=== PATIENT | female | born 1935 | race Caucasian/White ===

== ENCOUNTER 2021-12-17 07:52 | Outpatient (CLI) | payer OTHER, SELFPAY | END 2021-12-17 07:53 | disposition home or self-care (01) | LOC: AMB 12-21 21:55 | PROVIDERS: Visit Provider Family Medicine | DX: M54.9 Dorsalgia, unspecified (principal) | CPT/HCPCS: A0425; A0427 ==

== ENCOUNTER 2022-04-28 14:58 | Outpatient (CLI) | payer OTHER, SELFPAY | END 2022-04-28 14:59 | disposition home or self-care (01) | LOC: AMB 05-11 06:04 | PROVIDERS: Visit Provider Family Medicine | DX: R07.81 Pleurodynia (principal); R53.1 Weakness | CPT/HCPCS: A0425; A0427 ==

== ENCOUNTER 2022-04-28 16:24 | Observation (INO) | payer OTHER, SELFPAY ==
[2022-04-28] VITALS (21 sets, daily range): BP systolic 140–185; BP diastolic 74–118; PULSE 82–98; RESP 16–18; TEMP 36.6–36.9; O2SAT 94–97; BMI 22.6
--- NOTE | 2022-04-28 16:50 | ED.NURSE ---
Called [facility], they are on divert and boarding patients in their own ED, no bed availability per house officer (Cynthia).
--- NOTE | 2022-04-28 16:55 | ED_ITS ---
HPI - General Adult General Chief complaint: Rib Pain Stated complaint: rib pain Time Seen by Provider: 04/28/22 16:31 Source: patient Mode of arrival: EMS Limitations: no limitations History of Present Illness HPI narrative: 86-year-old female coming in today concerned about continuing pain after suffering multiple rib fractures patient was seen at [facility] on the of this month after she fell. She was found to have rib fractures of ribs 3 4 and 5. At that time admission was recommended the patient opted to go home. Since then patient states that she has been having a very difficult time getting by and doing daily activities. Oxycodone does help her pain. She is not complaining of increasing shortness of breath or dizziness. Her past medical history significant for chronic kidney disease, history of multiple fractures including the lumbar vertebrae, pelvis, femur. She has a history of unsteady gait, urinary incontinence, recurrent UTIs, depression, kidney stones, hypokalemia, hyperlipidemia, hypertension, bilateral hearing loss, goiter, GERD, osteoporosis, history of generalized weakness. She lives independently with her daughter. Related Data Allergies Allergy/AdvReac Type Severity Reaction Status Date / Time codeine Allergy Intermediate Vomiting Verified 04/28/22 17:30 Review of Systems Status of ROS: Reports: 10 or more systems reviewed and unremarkable except as noted in History and below PFSH PFS Social History Smoking Status: Never smoker Do you use any of these nicotine containing products: None Second hand tobacco smoke exposure: No How often do you have a drink containing alcohol: never How often do you have six or more drinks on one occasion: Never AUDIT-C Alcohol total score: 0 Non-prescribed substance use: denies use service: No Exam Narrative: Exam Narrative: Thin, elderly patient in obvious discomfort. Alert and oriented. Answers questions appropriately. Patient speaks in full sentences without needing to catch her breath. She is hard of hearing. Patient is disheveled, she is not very clean, smells strongly of urine. HEENT: Normocephalic atraumatic. Pupils are equally round reactive to light. Extraocular muscles are intact. Conjunctivae are moist without any icterus noted. Dry mucous membranes. Posterior pharynx is normal. Neck is soft without any lymphadenopathy or thyromegaly. No masses are appreciated. Cardiovascular: Regular rate and rhythm with frequent extra beats, S1-S2 present without murmurs. Lungs: Clear to auscultation bilaterally no wheezes rhonchi or rales are appreciated. Any deep Breathing causes her increased pain. Abdomen: Soft and nontender nondistended with normal bowel sounds. No guarding or rebound. Extremities: Bilateral lower extremities are without edema. Normal DP and PT pulses. Skin: Well perfused without any obvious rashes. Const: Vital Signs, click to edit/add: Vital Signs - 24 hr 04/28/22 16:32 Temperature 98.1 F Pulse Rate [Pulse Oximeter] 87 Respiratory Rate 18 Blood Pressure [Ri ght Upper Arm] 141/92 H Pulse Oximetry 95 Oxygen Delivery Me thod Room Air Course Course Hospital Course: Patient required 2 person assist with any transferring. Labs were unremarkable. EKG showed sinus rhythm with premature atrial complexes, left axis deviation. Did give her a dose of oral oxycodone which does seem to help. At this point we discussed disposition-given the fact that patient is requiring so much assistance with any movement and the fact that she was a bit disheveled when she arrived, I do believe that she will not thrive at home. Patient is agreeable to admitting. Vital Signs Vital signs: Initial Vital Signs Temperature 98.1 F 04/28/22 16:32 Temperature Source Temporal Artery Scan 04/28/22 16:32 Pulse Rate 87 04/28/22 16:32 Respiratory Rate 18 04/28/22 16:32 Blood Pressure 141/92 H 04/28/22 16:32 Blood Pressure Mean 108 04/28/22 16:32 Blood Pressure Position Sitting 04/28/22 16:32 Pulse Oximetry 95 04/28/22 16:32 Oxygen Delivery Method 04/28/22 16:32 Vital Signs Temperature 98.1 F 04/28/22 16:32 Pulse Rate 87 04/28/22 16:32 Respiratory Rate 18 04/28/22 16:32 Blood Pressure 141/92 H 04/28/22 16:32 Pulse Oximetry 95 04/28/22 16:32 Oxygen Delivery Method 04/28/22 16:32 Temperature 98.1 F 04/28/22 16:32 Pulse Rate 87 04/28/22 16:32 Respiratory Rate 18 04/28/22 16:32 Blood Pressure 141/92 H 04/28/22 16:32 Pulse Oximetry 95 04/28/22 16:32 Oxygen Delivery Method 04/28/22 16:32 Medical Decision Making MDM Narrative Medical decision making narrative: Elderly patient with multiple rib fractures. Patient will be admitted for management. Medical Records Medical records reviewed: Yes I reviewed the patient's medical records Lab Data Lab results reviewed: Yes I reviewed the patient's lab results Labs: Lab Results 04/28/22 04/28/22 04/28/22 Range/Units 16:45 17:00 17:00 WBC 6.46 (4.50-11.00) K/uL RBC 4.41 (4.00-5.20) m/uL Hgb 14.1 (12.0-16.0) gm/dL Hct 42.7 (33.0-51.0) % MCV 97 (80-100) fL MCH 32 (26-34) pg MCHC 33 (32-36) gm/dL RDW Coeff of Darrick 12.7 (11.5-15.5) % Plt Count 191 (140-440) K/uL Neut % (Auto) 74.5 H (42.0-72.0) % Lymph % (Auto) 13.2 L (20-44) % [place] % (Auto) 8.0 (0.0-11.0) % Eos % (Auto) 3.6 (0.0-7.0) % Baso % (Auto) 0.5 (0.0-3.0) % Neut # (Auto) 4.80 (1.7-7.0) K/uL Lymph # (Auto) 0.90 (0.90-2.90) K/uL [place] # (Auto) 0.50 (0.00-0.90) K/UL Eos # (Auto) 0.23 (0.00-0.50) K/uL Baso # (Auto) 0.03 (0.00-0.30) K/uL Abs Immat Gran (auto) 0.01 (0.00-0.30) K/uL Imm/Tot Granulo (auto) 0.2 % Sodium (135-149) mmol/L Potassium (3.6-5.1) mmol/L Chloride (96-114) mmol/L Carbon Dioxide (20-32) mmol/L BUN (7-30) mg/dL Creatinine (0.5-1.5) mg/dL Estimated GFR ml/min Glucose (60-115) mg/dL Calcium (8.4-10.6) mg/dL Urine Color Yellow (Yellow) Urine Appearance Clear (Clear) Urine pH 5.5 (5.0-8.5) Ur Specific [place] 1.010 (1.000-1.030) Urine Protein Negative (Negative) Urine Glucose (UA) Negative (Negative) Urine Ketones Negative (Negative) Urine Blood 1+ A (Negative) Urine Nitrite Negative (Negative) Urine Bilirubin Negative (Negative) Urine Urobilinogen 0.2 (0.2-1.0) Ur Leukocyte Esterase Negative (Negative) Urine RBC 2-5 A (0-2) Urine WBC 0-2 (0-5) Ur Squamous Epith Cells Few (None-Few) Urine Bacteria Few A (None) SARS-CoV-2 (PCR) Negative SARS-CoV-2 (Negative) 04/28/22 Range/Units 17:02 WBC (4.50-11.00) K/uL RBC (4.00-5.20) m/uL Hgb (12.0-16.0) gm/dL Hct (33.0-51.0) % MCV (80-100) fL MCH (26-34) pg MCHC (32-36) gm/dL RDW Coeff of [place]rick (11.5-15.5) % Plt Count (140-440) K/uL Neut % (Auto) (42.0-72.0) % Lymph % (Auto) (20-44) % [place] % (Auto) (0.0-11.0) % Eos % (Auto) (0.0-7.0) % Baso % (Auto) (0.0-3.0) % Neut # (Auto) (1.7-7.0) K/uL Lymph # (Auto) (0.90-2.90) K/uL [place] # (Auto) (0.00-0.90) K/UL Eos # (Auto) (0.00-0.50) K/uL Baso # (Auto) (0.00-0.30) K/uL Abs Immat Gran (auto) (0.00-0.30) K/uL Imm/Tot Granulo (auto) % Sodium 138 (135-149) mmol/L Potassium 4.1 (3.6-5.1) mmol/L Chloride 105 (96-114) mmol/L Carbon Dioxide 27 (20-32) mmol/L BUN 29 (7-30) mg/dL Creatinine 1.0 (0.5-1.5) mg/dL Estimated GFR 55 ml/min Glucose 124 H (60-115) mg/dL Calcium 9.3 (8.4-10.6) mg/dL Urine Color (Yellow) Urine Appearance (Clear) Urine pH (5.0-8.5) Ur Specific [place] (1.000-1.030) Urine Protein (Negative) Urine Glucose (UA) (Negative) Urine Ketones (Negative) Urine Blood (Negative) Urine Nitrite (Negative) Urine Bilirubin (Negative) Urine Urobilinogen (0.2-1.0) Ur Leukocyte Esterase (Negative) Urine RBC (0-2) Urine WBC (0-5) Ur Squamous Epith Cells (None-Few) Urine Bacteria (None) SARS-CoV-2 (PCR) (Negative) ECG Data Attestation: I personally reviewed and interpreted this ECG as follows: (Sinus rhythm with premature atrial complexes, left axis deviation, pulse 91) Discharge Plan Discharge Clinical Impression: Multiple fractures of ribs, Pain Patient Disposition: Admitted As Inpatient Condition: Stable Follow Up/Referrals: Provider,Not a Local [Primary Care Provider] -
[2022-04-28 17:09] LABS: Basophils Absolute Auto 0.03 K/uL (0.00-0.30); Basophils Percent Auto 0.5 % (0.0-3.0); Eosinophils Absolute Auto 0.23 K/uL (0.00-0.50); Eosinophils Percent Auto 3.6 % (0.0-7.0); Hematocrit 42.7 % (33.0-51.0); Hemoglobin* 14.1 gm/dL (12.0-16.0); Immature Granulocytes Abs Auto 0.01 K/uL (0.00-0.30); Immature Granulocytes Pct Auto 0.2 %; Lymphocytes Percent Auto 13.2 % (20-44); Mean Corpuscular HGB Conc 33 gm/dL (32-36); Mean Corpuscular Hemoglobin 32 pg (26-34); Mean Corpuscular Volume 97 fL (80-100); Neutrophils Percent Auto 74.5 % (42.0-72.0); Platelet Count* 191 K/uL (140-440); RDW Coefficient of Variation % 12.7 % (11.5-15.5); Red Blood Count 4.41 m/uL (4.00-5.20); White Blood Count* 6.46 K/uL (4.50-11.00)
[2022-04-28 17:16] LABS: Slide Review Reflex No
[2022-04-28] MEDS: 0.9 % SODIUM CHLORIDE 1000 ml 1,000 ML 500 ML IV (17:19)
[2022-04-28] MEDS: OXYCODONE 5 MG TABLET PO ×2 (17:19→23:58)
[2022-04-28 17:22] LABS: Chloride* 105 mmol/L (96-114); Potassium* 4.1 mmol/L (3.6-5.1); Sodium* 138 mmol/L (135-149)
[2022-04-28 17:22] LABS: Appearance Urine Clear (Clear); Bilirubin Urine Negative (Negative); Blood Urine 1+ (Negative); Color Urine Yellow (Yellow); Glucose Urine Negative (Negative); Ketones Urine Negative (Negative); Leukocyte Esterase Urine Negative (Negative); Nitrite Urine Negative (Negative); Protein Urine Negative (Negative); Urobilinogen Urine 0.2 (0.2-1.0); pH Urine 5.5 (5.0-8.5)
[2022-04-28 17:25] LABS: Blood Urea Nitrogen* 29 mg/dL (7-30); Carbon Dioxide* 27 mmol/L (20-32); Estimated Glomerular Filt Rate 55 ml/min
[2022-04-28 17:26] LABS: Calcium* 9.3 mg/dL (8.4-10.6); Glucose* 124 mg/dL (60-115)
[2022-04-28 17:53] LABS: SARS PCR* Negative SARS-CoV-2 (Negative)
[2022-04-28 17:56] LABS: Bacteria Urine Few; Squamous Epithelial Cell Urine Few (None-Few); WBC Urine 0-2 (0-5)
--- NOTE | 2022-04-28 19:40 | ED.NURSE ---
Patient noted to have removed 18G IV from left AC (EMS start). She has also removed bp cuff and oximeter. I don't know why. Coban wrap to left AC, fluids had finished infusing. Okay per MD to hold on IV start right now.
--- NOTE | 2022-04-28 20:18 | ED.NURSE ---
Report to Bautista Martell RN. Patient accepted to [id number]. Patient's son has just arrived, is in room with patient. Patient to [facility] via cot by EDT.
--- NOTE | 2022-04-28 21:50 | P.IMHP_ITS ---
Hospitalist- H&P: HPI History of Present Illness Time Seen by Provider: 21:50 Date Seen: 04/28/22 Chief complaint: rib pain Narrative: Sandra Campbell is a 86 year old female with dementia who had multiple falls. Uses walker. Cat runs between her legs and knocks the walker out of balance. Fell 2 weeks ago and again 3 days ago. Had pain in chest. Went to [facility] on Wednesday after fall and was sent home. Went back in because of pain and was given oxycodone. Lives with her oldest daughter. When they got home from the ER, she was very tired and wouldn't get out of bed, eat or drink. She was in a lot of pain. She was more confused than usual. Review of Systems Status of ROS: Reports: unobtainable due to mental status (dementia, confusion) PFSH [facility] Medical History (Updated 04/28/22 @ 22:56 by Jasmine Helton MD) Closed displaced subtrochanteric fracture of left femur Closed fracture of ramus of right pubis Closed intertrochanteric fracture of left femur Compression fracture of lumbar vertebra Dementia Dizziness Eating disorder Fall with injury Fractured coccyx Gastroesophageal reflux Generalized weakness Hx of colonic polyps Hyperlipidemia Hypertension Hypokalemia Lumbar disc disorder Nontoxic uninodular goiter Osteoarthritis of hand Osteoporosis Protein calorie malnutrition Sensorineural hearing loss (SNHL) of both ears Squamous cell carcinoma of skin of lower extremity Stage 3 chronic kidney disease Tobacco dependence syndrome Unsteady gait Urinary incontinence UTI (urinary tract infection) Weight loss, unintentional Surgical History (Updated 04/28/22 @ 22:37 by Jasmine Helton MD) H/O cystoscopy H/O squamous cell carcinoma excision History of hysterectomy Hx of cataract extraction Hx of colonoscopy Hx of esophagogastroduodenoscopy S/P appendectomy S/P cholecystectomy S/P ORIF (open reduction internal fixation) fracture S/P ORIF (open reduction internal fixation) fracture S/P thyroid biopsy Social History (Updated 04/28/22 @ 22:39 by Jasmine Helton MD) Narrative: Smokes 1/2ppd, denies alcohol or recreational drug use. Highest level of school completed/degree received: 10th grade Smoking Status: Current every day smoker What tobacco products do you use: cigarettes Smoking packs per day: 1 Smoking cigarettes per day: 20.0 Do you use any of these nicotine containing products: None Second hand tobacco smoke exposure: No How often do you have a drink containing alcohol: never How often do you have six or more drinks on one occasion: Never AUDIT-C Alcohol total score: 0 Non-prescribed substance use: denies use Caffeine: No service: No Meds Home Medications and Allergies Home Medications Medication Instructions Recorded Confirmed Type acetaminophen 500 mg tablet 1,000 mg PO Q6H PRN 04/28/22 04/28/22 History (Tylenol Extra Strength) amlodipine 10 mg tablet 10 mg PO DAILY 04/28/22 04/28/22 History atorvastatin 10 mg tablet 10 mg PO HS 04/28/22 04/28/22 History candesartan 16 mg tablet 16 mg PO DAILY 04/28/22 04/28/22 History cholecalciferol (vitamin D3) 25 25 mcg PO DAILY 04/28/22 04/28/22 History mcg (1,000 unit) capsule (Vitamin D3) docusate sodium 100 mg capsule 100 mg PO BID 04/28/22 04/28/22 History duloxetine 30 mg capsule,delayed 90 mg PO DAILY 04/28/22 04/28/22 History release lorazepam 0.5 mg tablet 0.5 mg PO QHS PRN 04/28/22 04/28/22 History melatonin 5 mg capsule 5 mg PO HS 04/28/22 04/28/22 History memantine 10 mg tablet 10 mg PO BID 04/28/22 04/28/22 History mirtazapine 30 mg tablet 30 mg PO HS 04/28/22 04/28/22 History omeprazole 20 mg capsule,delayed 20 mg PO DAILY 04/28/22 04/28/22 History release oxycodone 5 mg tablet 5 mg PO Q4H PRN 04/28/22 04/28/22 History tamsulosin 0.4 mg capsule 0.4 mg PO Q24H 04/28/22 04/28/22 History trospium 20 mg tablet 20 mg PO BID 04/28/22 04/28/22 History Allergies Allergy/AdvReac Type Severity Reaction Status Date / Time codeine Allergy Intermediate Vomiting Verified 04/28/22 17:30 Exam Narrative: Exam Narrative: General: No acute distress. Awake, alert, oriented to self and partially to situation. Comfortable laying on her back in bed. She refused to move for my exam. In fact, she would not let me examine her at all unless I promised I would not make her move. HEENT: Normocephalic atraumatic, pupils equally round and reactive to light and accommodation. Oropharynx clear. Mucous membranes are moist. No cervical lymphadenopathy, thyromegaly or carotid bruits. No JVD. Cardiovascular: Regular rate and rhythm. No murmurs, gallops, or rubs. Chest: No increased work of breathing. No retractions. Clear to auscultation anteriorly. No wheezes. Abdomen: Bowel sounds present. Soft, nondistended, nontender. No hepatosplenomegaly or masses. Extremities: Trace bilateral pretibial edema, no cyanosis or clubbing. Const: Vital Signs, click to edit/add: Vital Signs - 24 hr 04/28/22 16:32 04/28/22 17:06 04/28/22 17:30 Temperature 98.1 F Pulse Rate 91 82 Pulse Rate [Left R adial] Pulse Rate [Pulse Oximeter] 87 Respiratory Rate 18 Blood Pressure Blood Pressure [Le ft Arm] Blood Pressure [Ri ght Upper Arm] 141/92 H Pulse Oximetry 95 96 97 Oxygen Delivery Me od Room Air 04/28/22 17:32 04/28/22 18:00 04/28/22 18:01 Temperature Pulse Rate 82 92 91 Pulse Rate [Left R adial] Pulse Rate [Pulse Oximeter] Respiratory Rate Blood Pressure 140/76 H 154/76 H Blood Pressure [Le ft Arm] Blood Pressure [Ri ght Upper Arm] Pulse Oximetry 96 96 96 Oxygen Delivery Me thod 04/28/22 18:02 04/28/22 18:30 04/28/22 18:31 Temperature Pulse Rate 87 93 94 Pulse Rate [Left R adial] Pulse Rate [Pulse Oximeter] Respiratory Rate Blood Pressure 155/74 H Blood Pressure [Le ft Arm] Blood Pressure [Ri ght Upper Arm] Pulse Oximetry 96 94 95 Oxygen Delivery Me thod 04/28/22 19:00 04/28/22 19:01 04/28/22 19:31 Temperature Pulse Rate 91 95 Pulse Rate [Left R adial] Pulse Rate [Pulse Oximeter] Respiratory Rate Blood Pressure 164/75 H 163/118 H Blood Pressure [Le ft Arm] Blood Pressure [Ri ght Upper Arm] Pulse Oximetry 95 96 Oxygen Delivery Me thod 04/28/22 20:01 04/28/22 20:49 04/28/22 20:51 Temperature 98.1 F 98.4 F Pulse Rate Pulse Rate [Left R adial] 98 98 Pulse Rate [Pulse Oximeter] Respiratory Rate 16 16 Blood Pressure 164/80 H Blood Pressure [Le ft Arm] 185/92 H 185/92 H Blood Pressure [Ri ght Upper Arm] Pulse Oximetry 95 95 Oxygen Delivery Me thod Room Air Room Air 04/28/22 21:00 Temperature Pulse Rate Pulse Rate [Left R adial] Pulse Rate [Pulse Oximeter] Respiratory Rate 16 Blood Pressure Blood Pressure [Le ft Arm] Blood Pressure [Ri ght Upper Arm] Pulse Oximetry 95 Oxygen Delivery Me thod Room Air Hospitalist - H&P: Result Labs Labs: Short CBC 04/28/22 Range/Units 17:00 WBC 6.46 (4.50-11.00) K/uL Hgb 14.1 (12.0-16.0) gm/dL Hct 42.7 (33.0-51.0) % Plt Count 191 (140-440) K/uL BMP 04/28/22 17:02 Sodium 138 Potassium 4.1 Chloride 105 Carbon Dioxide 27 BUN 29 Creatinine 1.0 Glucose 124 H Calcium 9.3 Urine 04/28/22 Range/Units 16:45 Urine Color Yellow (Yellow) Urine Appearance Clear (Clear) Urine pH 5.5 (5.0-8.5) Ur Specific [place] 1.010 (1.000-1.030) Urine Protein Negative (Negative) Urine Glucose (UA) Negative (Negative) EKG: Sinus rhythm with premature atrial complexes. Heart rate 91 beats per minute. Left axis deviation. Minimal voltage criteria for LVH, maybe normal variant. Septal infarct, age undetermined. Abnormal EKG. Assessment and Plan Assessment and plan (1) Fall with injury: Problem comment: 01/24/2019 fall at home with chest wall injury. 02/05/2019 CT chest: 1. No acute traumatic injury to the chest, abdomen or pelvis. 2. Old thoracic compression fractures with thoracic kyphosis, similar to the prior exam. 3. Colonic diverticulosis without janee diverticulitis. 4. Other incidental findings as detailed above. 04/26/22 multiple right rib fractures Status: Acute (2) Multiple fractures of ribs: Status: Acute Assessment and Plan: No respiratory distress. Comfortable. Monitor. (3) Protein calorie malnutrition: Status: Chronic (4) Pain: Status: Acute (5) Stage 3 chronic kidney disease: Problem comment: Baseline Creatinine 1.0. CREATININE (mg/dL) Date Value 02/05/2019 1.38 (H) Status: Chronic (6) Dementia: Problem comment: according to patient's daughter Status: Chronic Plan Admit for observation with oral pain control and PT/OT consults. Also consult SW as she may need placement.
[2022-04-28] MEDS: TAMSULOSIN HCL 0.4 MG CAPSULE PO (23:58)
[2022-04-29] VITALS (9 sets, daily range): BP systolic 124–156; BP diastolic 66–77; PULSE 95–99; RESP 16–20; TEMP 36.3–36.9; O2SAT 92–94
[2022-04-29] MEDS: OXYCODONE 5 MG TABLET PO ×5 (02:48→20:23)
--- NOTE | 2022-04-29 03:06 | PC.NURSE ---
Pt restless this night. States unable to sleep in strange environment. Pain controlled with meds. Pain elevated with movement. PT heavy A2 to pivot to commode. Pt confused as to place and surroundings. Would like family to stay with her. Afebrile. VS unremarkable.
--- NOTE | 2022-04-29 09:51 | PC.SOCIAL ---
Addendum entered by HEMANTH Bradshaw 04/29/22 16:21: Producer Director has reviewed and agrees with this note. Original Note: Discharge planning: Social work spoke with [email or web address] Ro ([phone]) to discuss plans for discharge. Dtr. says that she would like pt. to go to a nursing facility at discharge. Dtr. says that she would like to stay as close to [place] as possible, listing [facility], [facility] [place], [facility], [facility], and [facility] as options. [facility] currently has no beds, [facility] and [facility] have no beds until next week. Left messages at [facility] and [facility] [place], sent referral to [facility]. Social work to follow up as needed.
[2022-04-29] MEDS: AMLODIPINE 10 MG TABLET PO (10:08)
[2022-04-29] MEDS: DULOXETINE 30 MG CAPSULE DR 90 MG PO (10:09)
[2022-04-29] MEDS: DOCUSATE SODIUM 100 MG CAPSULE PO ×2 (10:09→20:22)
[2022-04-29] MEDS: OMEPRAZOLE 20 MG CAPSULE DR PO (10:10)
[2022-04-29] MEDS: MEMANTINE HCL 10 MG TABLET PO ×2 (10:10→20:23)
[2022-04-29] MEDS: NICOTINE 21 MG PATCH 1 PATCH TRANSDERMA (12:12)
[2022-04-29] MEDS: SENNOSIDES 1 TAB TABLET 2 TAB PO ×2 (12:12→20:22)
--- NOTE | 2022-04-29 12:12 | P.IMPN_ITS ---
Progress Note: A&P Assessment and plan (1) Multiple fractures of ribs: Problem details: Currently without obvious complication. Patient is at high risk for respiratory problems with underlying COPD. Patient is requiring opioid therapy which is complicating and exacerbating her cognitive issues with dementia. Status: Acute (2) COPD (chronic obstructive pulmonary disease): Problem details: Appears moderately severe but not currently requiring oxygen. Status: Acute (3) Stage 3 chronic kidney disease: Problem details: Baseline Creatinine 1.0. CREATININE (mg/dL) Date Value 02/05/2019 1.38 (H) Status: Chronic (4) Fall with injury: Problem details: From the emergency department in [place] she had thoracic spine CT, abdomen and pelvis CT, lumbar spine CT and chest abdomen pelvis CT. Main findings are rib fractures 3-5 in the anterolateral right chest, bilateral ureteral stents, COPD, coronary calcifications, old lumbar compression fractures. And multiple other incidental findings Status: Acute (5) Pain: Problem details: Difficult to manage due to dementia. Status: Acute (6) Dementia: Problem details: Progressive decline over the last year according to her daughter Status: Chronic (7) Protein calorie malnutrition: Problem details: Poor appetite has gotten worse. Status: Chronic (8) Disability: Problem details: Patient is quite disabled due to pre-existing dementia and poor balance and weakness now exacerbated by pain from her rib fractures. Likely needs senior care facility for care. Notably daughter previously worked in a senior care facility and has been caregiver for both her parents over the last 6 years. She feels now that her mom needs assist of 2. Status: Acute Plan Continue to work on monitoring respiratory status. Added high risk for respiratory complications. Continue to manage pain with low-dose opioids as needed Time Spent With Patient Total time spent: Total time spent today is 45 minutes, 30 minutes in coordination care and discussing with daughter and other providers ongoing evaluation management of pain, rib fractures, COPD and dementia Subjective Date Seen: 04/29/22 Interval history: 86-year-old female with dementia admitted to the hospital after a fall at home 5 days ago. She was evaluated in the emergency department in [place] after the fall and again the next day. She was diagnosed with right-sided rib fractures, 3,4 and 5. Patient reports having more pain in her left anterolateral chest than her right anterior all lateral chest were the fractures were identified on CT. Brief history: Daughter lives with the patient and gives most of the history today. She reports that her mom has dementia. She has had more recent decline in her status. Daughter trip beats this to the of her earlier this year as well as surgery to place by right lateral ureteral stents for recurrent obstructing nephrolithiasis. There has not been any recent illness. The only significant injury is this fall from 5 days ago. Daughter also notes that her mom has become less stable on her feet and overall weaker. Exam Narrative: Exam Narrative: Patient is alert and pleasant. She is unable to give significant history about recent events. She does describe her current symptoms fairly well noting left chest pain greater than right. No obvious facial asymmetry. She moves both upper extremities well limited by bilateral anterior chest pain with shoulder movement. Respirations are markedly decreased in all lung jacobo. She has a few basilar crackles. No marked wheezing. Cardiovascular: S1, S2, regular rate and rhythm. No murmur gallop or rub. Palpation over chest wall shows bilateral moderate tenderness in the anterolateral left and right chest. No obvious bruising or deformity. Abdomen: Bowel sounds active. Abdomen is soft without tenderness or mass. She has no significant edema. Const: Vital Signs, click to edit/add: Vital Signs - 24 hr 04/28/22 16:32 04/28/22 17:06 04/28/22 17:30 Temperature 98.1 F Pulse Rate 91 82 Pulse Rate [Left R adial] Pulse Rate [Pulse Oximeter] 87 Respiratory Rate 18 Blood Pressure Blood Pressure [Le ft Arm] Blood Pressure [Ri ght Upper Arm] 141/92 H Pulse Oximetry 95 96 97 Oxygen Delivery Me thod Room Air 04/28/22 17:32 04/28/22 18:00 04/28/22 18:01 Temperature Pulse Rate 82 92 91 Pulse Rate [Left R adial] Pulse Rate [Pulse Oximeter] Respiratory Rate Blood Pressure 140/76 H 154/76 H Blood Pressure [Le ft Arm] Blood Pressure [Ri ght Upper Arm] Pulse Oximetry 96 96 96 Oxygen Delivery Me thod 04/28/22 18:02 04/28/22 18:30 04/28/22 18:31 Temperature Pulse Rate 87 93 94 Pulse Rate [Left R adial] Pulse Rate [Pulse Oximeter] Respiratory Rate Blood Pressure 155/74 H Blood Pressure [Le ft Arm] Blood Pressure [Ri ght Upper Arm] Pulse Oximetry 96 94 95 Oxygen Delivery Me thod 04/28/22 19:00 04/28/22 19:01 04/28/22 19:31 Temperature Pulse Rate 91 95 Pulse Rate [Left R adial] Pulse Rate [Pulse Oximeter] Respiratory Rate Blood Pressure 164/75 H 163/118 H Blood Pressure [Le ft Arm] Blood Pressure [Ri ght Upper Arm] Pulse Oximetry 95 96 Oxygen Delivery Me thod 04/28/22 20:01 04/28/22 20:49 04/28/22 20:51 Temperature 98.1 F 98.4 F Pulse Rate Pulse Rate [Left R adial] 98 98 Pulse Rate [Pulse Oximeter] Respiratory Rate 16 16 Blood Pressure 164/80 H Blood Pressure [Le ft Arm] 185/92 H 185/92 H Blood Pressure [Ri ght Upper Arm] Pulse Oximetry 95 95 Oxygen Delivery Me thod Room Air Room Air 04/28/22 21:00 04/28/22 22:28 04/28/22 22:42 Temperature 98 F 98 F Pulse Rate Pulse Rate [Left R adial] 95 95 Pulse Rate [Pulse Oximeter] Respiratory Rate 16 16 16 Blood Pressure Blood Pressure [Le ft Arm] 173/77 H 173/77 H Blood Pressure [Ri ght Upper Arm] Pulse Oximetry 95 94 94 Oxygen Delivery Me thod Room Air Room Air Room Air 04/28/22 23:20 04/28/22 23:23 04/28/22 23:25 Temperature 98 F Pulse Rate Pulse Rate [Left R adial] 95 Pulse Rate [Pulse Oximeter] Respiratory Rate 16 Blood Pressure Blood Pressure [Le ft Arm] 173/77 H Blood Pressure [Ri ght Upper Arm] Pulse Oximetry 94 94 95 Oxygen Delivery Me thod Room Air Room Air 04/29/22 02:52 Temperature 98.4 F Pulse Rate Pulse Rate [Left R adial] 95 Pulse Rate [Pulse Oximeter] Respiratory Rate 18 Blood Pressure Blood Pressure [Le ft Arm] 137/75 Blood Pressure [Ri ght Upper Arm] Pulse Oximetry 94 Oxygen Delivery Me thod Room Air Labs Labs: Laboratory Results - last 24 hr 04/28/22 04/28/22 04/28/22 16:45 17:00 17:00 WBC 6.46 RBC 4.41 Hgb 14.1 Hct 42.7 MCV 97 MCH 32 MCHC 33 RDW Coeff of Darrick 12.7 Plt Count 191 Neut % (Auto) 74.5 H Lymph % (Auto) 13.2 L [place] % (Auto) 8.0 Eos % (Auto) 3.6 Baso % (Auto) 0.5 Neut # (Auto) 4.80 Lymph # (Auto) 0.90 [place] # (Auto) 0.50 Eos # (Auto) 0.23 Baso # (Auto) 0.03 Abs Immat Gran (auto) 0.01 Imm/Tot Granulo (auto) 0.2 Sodium Potassium Chloride Carbon Dioxide BUN Creatinine Estimated GFR Glucose Calcium Urine Color Yellow Urine Appearance Clear Urine pH 5.5 Ur Specific [place] 1.010 Urine Protein Negative Urine Glucose (UA) Negative Urine Ketones Negative Urine Blood 1+ A Urine Nitrite Negative Urine Bilirubin Negative Urine Urobilinogen 0.2 Ur Leukocyte Esterase Negative Urine RBC 2-5 A Urine WBC 0-2 Ur Squamous Epith Cells Few Urine Bacteria Few A SARS-CoV-2 (PCR) Negative SARS-CoV-2 04/28/22 17:02 WBC RBC Hgb Hct MCV MCH MCHC RDW Coeff of Darrick Plt Count Neut % (Auto) Lymph % (Auto) [place] % (Auto) Eos % (Auto) Baso % (Auto) Neut # (Auto) Lymph # (Auto) [place] # (Auto) Eos # (Auto) Baso # (Auto) Abs Immat Gran (auto) Imm/Tot Granulo (auto) Sodium 138 Potassium 4.1 Chloride 105 Carbon Dioxide 27 BUN 29 Creatinine 1.0 Estimated GFR 55 Glucose 124 H Calcium 9.3 Urine Color Urine Appearance Urine pH Ur Specific [place] Urine Protein Urine Glucose (UA) Urine Ketones Urine Blood Urine Nitrite Urine Bilirubin Urine Urobilinogen Ur Leukocyte Esterase Urine RBC Urine WBC Ur Squamous Epith Cells Urine Bacteria SARS-CoV-2 (PCR)
[2022-04-29] MEDS: LOSARTAN POTASSIUM 50 MG TABLET PO (13:16)
--- NOTE | 2022-04-29 19:32 | PC.NURSE ---
Pt resting in chair. Refused to eat dinner. Refused to move to bed. Refused Vitals. Pt tried to strike RN and yelled Leave me Alone
--- NOTE | 2022-04-29 19:37 | PC.NURSE ---
Nursing Care Hours: [id number] Pt this shift calm. Not oriented to place, birthday, or date. Explained she fell over a week ago when it was reported to be three days. Shared that three weeks ago but display card writer unsure if that is valid. Declined all meals, agreeable to applesauce in morning with medications. Denies pain at rest but with movement it is about 7/10. Pt was pressing nurse call button frequently in later afternoon but denied needing anything when display card writer entered room. Outsole Scheduler explained what the button is for, but pt continued with pressing call light. Pt appeared agitated in chair from pain, aeb rubbing L side, cursed x1, and facial grimacing. Oxycodone given and pt fell asleep in recliner chair. Attempt to wake pt to use the commode or do get into bed. Pt lethargic and refused to move. pt stating i am fine, i am comfortable. Pt did have void or BM today, drank about 500ml total.
[2022-04-29] MEDS: ATORVASTATIN 10 MG TABLET PO (20:24)
[2022-04-29] MEDS: MIRTAZAPINE 15 MG TABLET 30 MG PO (20:24)
[2022-04-29] MEDS: TAMSULOSIN HCL 0.4 MG CAPSULE PO (20:24)
[2022-04-29] MEDS: MELATONIN 3 MG TABLET 6 MG PO (20:24)
--- NOTE | 2022-04-29 23:57 | PC.NURSE ---
@ 2300 Pt began tugging at gum tissue of her upper mouth. Pt would not place teeth back in mouth. Pt is causing herself to bleed from her mouth. was notified and came into room. Pt refused help and would not let staff assist. notified ED Dr of situation and stated that if bleeding becomes severe we are to notify ED
[2022-04-30 02:36] VITALS: BP 112/59; PULSE 97; RESP 18; TEMP 37.2; O2SAT 92
--- NOTE | 2022-04-30 06:43 | PC.NURSE ---
Pt very uncooperative with cares. Dr asked if family could come in. Daughter called and said she is the same way at home and that they did not have anyone to come in.
[2022-04-30 07:00] VITALS: PULSE 97; RESP 18; O2SAT 92
[2022-04-30] MEDS: SENNOSIDES 1 TAB TABLET 2 TAB PO ×2 (09:14→21:16)
[2022-04-30] MEDS: OMEPRAZOLE 20 MG CAPSULE DR PO (09:14)
[2022-04-30] MEDS: LOSARTAN POTASSIUM 50 MG TABLET PO (09:14)
[2022-04-30] MEDS: AMLODIPINE 10 MG TABLET PO (09:14)
[2022-04-30] MEDS: DOCUSATE SODIUM 100 MG CAPSULE PO ×2 (09:14→21:16)
[2022-04-30] MEDS: MEMANTINE HCL 10 MG TABLET PO ×2 (09:14→21:16)
[2022-04-30] MEDS: DULOXETINE 30 MG CAPSULE DR 90 MG PO (09:14)
[2022-04-30] MEDS: OXYCODONE 5 MG TABLET PO ×2 (09:59→14:38)
[2022-04-30] MEDS: NICOTINE 21 MG PATCH 1 PATCH TRANSDERMA (10:00)
[2022-04-30] MEDS: OLANZapine 5 MG TAB.RAPDIS PO ×2 (10:13→21:16)
[2022-04-30 11:00] VITALS: BP 136/73; PULSE 93; RESP 18; TEMP 37.2; O2SAT 93
--- NOTE | 2022-04-30 11:35 | PM.IMPN1 ---
Progress Note: A&P Assessment and plan (1) Fall with injury: Problem details: From the emergency department in [place] she had thoracic spine CT, abdomen and pelvis CT, lumbar spine CT and chest abdomen pelvis CT. Main findings are rib fractures 3-5 in the anterolateral right chest, bilateral ureteral stents, COPD, coronary calcifications, old lumbar compression fractures. And multiple other incidental findings Status: Acute (2) COPD (chronic obstructive pulmonary disease): Problem details: Appears moderately severe but not currently requiring oxygen. Status: Acute (3) Disability: Problem details: Patient is quite disabled due to pre-existing dementia and poor balance and weakness now exacerbated by pain from her rib fractures. Likely needs residential facility for care. Notably daughter previously worked in a residential facility and has been caregiver for both her parents over the last 6 years. She feels now that her mom needs assist of 2. Status: Acute (4) Dementia: Problem details: Progressive decline over the last year according to her daughter Status: Chronic (5) Stage 3 chronic kidney disease: Problem details: Baseline Creatinine 1.0. CREATININE (mg/dL) Date Value 02/05/2019 1.38 (H) Status: Chronic (6) Multiple fractures of ribs: Problem details: Currently without obvious complication. Patient is at high risk for respiratory problems with underlying COPD. Patient is requiring opioid therapy which is complicating and exacerbating her cognitive issues with dementia. Status: Acute (7) Pain: Problem details: Difficult to manage due to dementia. Status: Acute (8) Delirium: Status: Acute Plan Plan for 04/30/22 zyprexa X1 zyprexa qhs prn zyprexa for agitation check CBC, BMp, Ua Subjective Date Seen: 04/30/22 Interval history: patient with dementia delirious this morning thinks she is at hotel was agitated and threatening therapy team Exam Narrative: Exam Narrative: Gen: no acute distress HEENT: NCAT EOMI mmm CV: RRR s1 s2 LCTAB Abd: soft,ntnd Neuro: AOX1, follows some commands Const: Vital Signs, click to edit/add: Vital Signs - 24 hr 04/29/22 15:00 04/29/22 15:00 04/29/22 15:00 Temperature 97.3 F L Pulse Rate [Left R adial] 99 99 Respiratory Rate 20 20 Blood Pressure [Le ft Arm] 124/74 Pulse Oximetry 94 94 Oxygen Delivery Me thod Room Air Room Air 04/29/22 19:27 04/29/22 22:35 04/29/22 22:37 Temperature 98 F Pulse Rate [Left R adial] 97 Respiratory Rate 16 18 Blood Pressure [Le ft Arm] 143/66 H Pulse Oximetry 92 92 Oxygen Delivery Me thod Room Air 04/29/22 22:38 04/29/22 22:39 04/30/22 02:36 Temperature 98.9 F Pulse Rate [Left R adial] 97 97 Respiratory Rate 18 18 18 Blood Pressure [Le ft Arm] 112/59 L Pulse Oximetry 92 92 Oxygen Delivery Me thod Room Air Room Air 04/30/22 07:00 04/30/22 07:00 04/30/22 11:00 Temperature 98.9 F Pulse Rate [Left R adial] 97 93 Respiratory Rate 18 18 18 Blood Pressure [Le ft Arm] 136/73 Pulse Oximetry 92 93 Oxygen Delivery Me thod Room Air Room Air
[2022-04-30 12:18] LABS: Chloride* 105 mmol/L (96-114); Sodium* 136 mmol/L (135-149)
[2022-04-30 12:19] LABS: Potassium* 4.2 mmol/L (3.6-5.1)
[2022-04-30 12:21] LABS: Carbon Dioxide* 23 mmol/L (20-32); Creatinine* 1.2 mg/dL (0.5-1.5); Est. Creatinine Clearance* 33.33; Estimated Glomerular Filt Rate 44 ml/min
[2022-04-30 12:22] LABS: Blood Urea Nitrogen* 26 mg/dL (7-30); Calcium* 9.6 mg/dL (8.4-10.6); Glucose* 101 mg/dL (60-115)
[2022-04-30 12:31] LABS: Appearance Urine Clear (Clear); Bilirubin Urine Negative (Negative); Blood Urine 2+ (Negative); Color Urine Yellow (Yellow); Glucose Urine Negative (Negative); Ketones Urine 1+ (Negative); Leukocyte Esterase Urine 1+ (Negative); Nitrite Urine Negative (Negative); Protein Urine Negative (Negative); Urobilinogen Urine 0.2 (0.2-1.0); pH Urine 5.5 (5.0-8.5)
[2022-04-30 12:39] LABS: Procalcitonin* 0.08 ng/mL (<0.50)
[2022-04-30 12:53] LABS: Bacteria Urine Many; RBC Urine 25-50 (0-2); Squamous Epithelial Cell Urine Few (None-Few)
--- NOTE | 2022-04-30 14:09 | PC.SOCIAL ---
Addendum entered by HEMANTH Bradshaw 04/30/22 15:31: Gluing Machine Operator has reviewed and agrees with this note. Original Note: Discharge planning: Pt.'s family provided list of preferred [employer]-accepting facilities. Pt.'s family strongly prefers to stay in [place] at the [facility], but also lists [facility], [facility], and [facility] as secondary options. Pt. has been accepted to [facility], awaiting [employer] insurance approval. Voicemails left at all other facilities, awaiting responses. Social work to follow up as needed.
[2022-04-30 15:00] VITALS: BP 117/63; PULSE 84; RESP 18; TEMP 37.2; O2SAT 94
[2022-04-30] MEDS: cefTRIAXone 1 GM in 0.9 % SODIUM CHLORIDE Mini-bag 100 ML IVPB (16:05)
[2022-04-30 19:00] VITALS: BP 135/66; PULSE 92; RESP 20; TEMP 37.2; O2SAT 92
[2022-04-30 19:51] LABS: Basophils Absolute Auto 0.03 K/uL (0.00-0.30); Basophils Percent Auto 0.4 % (0.0-3.0); Eosinophils Absolute Auto 0.29 K/uL (0.00-0.50); Eosinophils Percent Auto 3.8 % (0.0-7.0); Hematocrit 42.3 % (33.0-51.0); Hemoglobin* 13.8 gm/dL (12.0-16.0); Immature Granulocytes Abs Auto 0.02 K/uL (0.00-0.30); Immature Granulocytes Pct Auto 0.3 %; Lymphocytes Percent Auto 9.9 % (20-44); Mean Corpuscular HGB Conc 33 gm/dL (32-36); Mean Corpuscular Hemoglobin 32 pg (26-34); Mean Corpuscular Volume 98 fL (80-100); Monocytes Percent Auto 8.7 % (0.0-11.0); Neutrophils Percent Auto 76.9 % (42.0-72.0); Platelet Count* 203 K/uL (140-440); RDW Coefficient of Variation % 12.6 % (11.5-15.5); Red Blood Count 4.33 m/uL (4.00-5.20)
[2022-04-30 19:58] LABS: Slide Review Reflex No
--- NOTE | 2022-04-30 20:01 | PC.NURSE ---
Pt. was not in a good mood this AM but quickly turned around and was cooperative w/cares and vitals. Pt. stated that she was in pain. unable to rate. oxy administered w/relief. see eMAR. Pt. did not eat much but drank juice or water when directed to. Pt. needed a new IV in right wrist and tolerated well. Pt. was pleasant throughout shift. stayed in bed and room was moved closer to nurses station.
[2022-04-30] MEDS: MIRTAZAPINE 15 MG TABLET 30 MG PO (21:16)
[2022-04-30] MEDS: MELATONIN 3 MG TABLET 6 MG PO (21:16)
[2022-04-30] MEDS: ATORVASTATIN 10 MG TABLET PO (21:16)
[2022-04-30] MEDS: TAMSULOSIN HCL 0.4 MG CAPSULE PO (21:16)
[2022-04-30 23:00] VITALS: BP 98/57; PULSE 85; RESP 20; RESP 24; TEMP 36.8; O2SAT 89
[2022-05-01 03:00] VITALS: BP 127/67; PULSE 89; RESP 20; O2SAT 89
--- NOTE | 2022-05-01 04:57 | PC.NURSE ---
[id number] Pt rested well during night, cooperative with all cares, denies pain at rest, increased pain with movement. Tolerates moving slowly at her own pace.
[2022-05-01 07:00] VITALS: BP 149/78; PULSE 112; RESP 22; TEMP 37.3; O2SAT 89
[2022-05-01] MEDS: DULOXETINE 30 MG CAPSULE DR 90 MG PO (08:45)
[2022-05-01] MEDS: LOSARTAN POTASSIUM 50 MG TABLET PO (08:45)
[2022-05-01] MEDS: SENNOSIDES 1 TAB TABLET 2 TAB PO (08:45)
[2022-05-01] MEDS: DOCUSATE SODIUM 100 MG CAPSULE PO (08:46)
[2022-05-01] MEDS: OMEPRAZOLE 20 MG CAPSULE DR PO (08:46)
[2022-05-01] MEDS: MEMANTINE HCL 10 MG TABLET PO (08:46)
[2022-05-01] MEDS: OXYCODONE 5 MG TABLET PO ×2 (08:46→16:23)
[2022-05-01] MEDS: AMLODIPINE 10 MG TABLET PO (08:46)
[2022-05-01] MEDS: NICOTINE 21 MG PATCH 1 PATCH TRANSDERMA (10:29)
[2022-05-01 11:00] VITALS: BP 121/71; PULSE 99; RESP 22; TEMP 36.6; O2SAT 88
[2022-05-01] MEDS: cefTRIAXone 1 GM in 0.9 % SODIUM CHLORIDE Mini-bag 100 ML IVPB (13:07)
[2022-05-01 13:45] VITALS: BMI 22.5
--- NOTE | 2022-05-01 14:11 | CRLHL7_ITS ---
For Patients: As a result of the Century Cures Act, medical imaging exams and procedure reports are released immediately into your electronic medical record. You may view this report before your referring provider. If you have questions, please contact your health care provider. INDICATION: Dyspnea TECHNIQUE: Chest 1 view COMPARISON: None FINDINGS: The cardiac silhouette is enlarged. Streaky densities are present within both lung bases. Fullness of the interstitial markings noted in the perihilar lung bilaterally. Trace left pleural effusion. No pneumothorax. Mild degenerative changes at the shoulders. Cardiac silhouette is mildly prominent. IMPRESSION: Bibasilar areas of atelectasis or infiltrate. Trace left pleural effusion. Mild fluid overload. Dictated by Aime Green MD @ 05/01/2022 3:10:25 PM (Electronically Signed)
[2022-05-01 15:00] VITALS: BP 118/72; PULSE 116; RESP 22; TEMP 36.9; O2SAT 88
--- NOTE | 2022-05-01 15:48 | P.DS_ITS ---
DS: Providers Provider Date Seen: 05/01/22 Date of admission: 04/28/22 19:10 Primary care physician: Not a Local Provider Admitting Clinician: Jasmine Helton MD Date of Discharge: 05/01/22 DS: Diagnosis Discharge Diagnosis (1) Multiple fractures of ribs: Status: Acute Problem details: Patient is at high risk for respiratory problems with underlying COPD. Patient is requiring opioid therapy which is complicating and exacerbating her cognitive issues with dementia but required to allow deep breathing and activity. She will need pain medication to participate in therapy. She will also need pain medicine so that she can cough and take deep breaths to resolve her atelectasis (2) Fall with injury: Status: Acute Problem details: From the emergency department in [place] she had thoracic spine CT, abdomen and pelvis CT, lumbar spine CT and chest abdomen pelvis CT. Main findings are rib fractures 3-5 in the anterolateral right chest, bilateral ureteral stents, COPD, coronary calcifications, old lumbar compression fractures. And multiple other incidental findings (3) Stage 3 chronic kidney disease: Status: Chronic (4) Dementia: Status: Chronic Problem details: Progressive decline over the last year according to her daughter (5) COPD (chronic obstructive pulmonary disease): Status: Acute Problem details: Now requiring oxygen. Appears to be more due to atelectasis than COPD exacerbation. Needs monitoring of respiratory status (6) Disability: Status: Acute Problem details: Patient is quite disabled due to pre-existing dementia and poor balance and weakness now exacerbated by pain from her rib fractures. Likely needs halfway facility for care. Notably daughter previously worked in a halfway facility and has been caregiver for both her parents over the last 6 years. She feels now that her mom needs assist of 2. At home patient was walking with a walker independently but falling frequently. (7) Delirium: Status: Acute Problem details: Hospital-acquired delirium. (8) UTI (urinary tract infection): Status: Acute Problem details: Urine culture pending (9) Atelectasis of both lungs: Status: Acute Problem details: Incentive spirometry, encourage activity, coughing and deep breathing. DS: Summary Hospital Course Hospital Course: 86-year-old female fell at home. She was seen in the emergency department in [place] and eventually diagnosed with rib fractures on her anterolateral right chest ribs 3 4 and 5. She is also having a lot of pain in her left anterior chest but no apparent rib fractures. She was discharged from the emergency department to home but did poorly there. She has subsequently been unable to manage at home with the assistance of her daughter who is a skilled caregiver. She is admitted to the hospital for management of pain, monitoring of respi ratory status and management of dementia. During her hospital stay she developed complications including hospital-acquired delirium, hypoxia likely due to poor inspiration and significant bilateral atelectasis due to chest wall pain. She was found to have a urinary tract infection of uncertain significance. She does have urinary frequency. She is being treated with cefuroxime pending urine culture. Status at Discharge Cognitive/behavioral status at discharge: Fluctuating delirium Functional status at discharge: uses cane/walker Overall status at discharge: patient is not back to baseline Time Spent with Patient Time attestation: Total time spent providing and/or coordinating discharge services: Time spent: Greater than 30 minutes Exam Narrative: Exam Narrative: She is alert and appears in no obvious distress sitting in bed. She is not oriented to her circumstances. She is aware that she has pain in her anterior chest bilaterally. She has no other concerns today. Respirations with marked diminished breath sounds in all lung jacobo without wheezing. I had occasional basilar crackle noted. Cardiovascular: S1, S2, regular rate and rhythm. No murmur gallop or rub. Abdomen is soft without tenderness or mass. Extremities without edema. Const: Vital Signs, click to edit/add: Vital Signs - 24 hr 04/30/22 19:00 04/30/22 23:00 04/30/22 23:00 Temperature 98.9 F Pulse Rate [Left R adial] 92 Respiratory Rate 20 24 Blood Pressure [Le ft Arm] 135/66 Pulse Oximetry 92 89 Oxygen Delivery Me thod Room Air Oxygen Flow Rate 04/30/22 23:00 04/30/22 23:00 05/01/22 03:00 Temperature 98.2 F Pulse Rate [Left R adial] 85 89 Respiratory Rate 24 20 20 Blood Pressure [Le ft Arm] 98/57 L 127/67 Pulse Oximetry 89 89 89 Oxygen Delivery Me thod Room Air Room Air Nasal Cannula Oxygen Flow Rate 2 05/01/22 07:00 05/01/22 07:00 05/01/22 07:00 Temperature 99.1 F Pulse Rate [Left R adial] 112 H 112 H Respiratory Rate 22 22 22 Blood Pressure [Le ft Arm] 149/78 H Pulse Oximetry 89 89 Oxygen Delivery Me thod Nasal Cannula Nasal Cannula Oxygen Flow Rate 1.5 1.5 05/01/22 11:00 Temperature 98 F Pulse Rate [Left R adial] 99 Respiratory Rate 22 Blood Pressure [Le ft Arm] 121/71 Pulse Oximetry 88 Oxygen Delivery Me thod Nasal Cannula Oxygen Flow Rate 1.5 Documenting provider has reviewed patient's vital signs: yes DS: Data Data Completed and Pending Labs on day of discharge: Labs from last 24 hours 04/30/22 11:58 WBC 7.60 RBC 4.33 Hgb 13.8 Hct 42.3 MCV 98 MCH 32 MCHC 33 RDW Coeff of Darrick 12.6 Plt Count 203 Neut % (Auto) 76.9 H Lymph % (Auto) 9.9 L [place] % (Auto) 8.7 Eos % (Auto) 3.8 Baso % (Auto) 0.4 Neut # (Auto) 5.80 Lymph # (Auto) 0.80 L [place] # (Auto) 0.70 Eos # (Auto) 0.29 Baso # (Auto) 0.03 Abs Immat Gran (auto) 0.02 Imm/Tot Granulo (auto) 0.3 Preliminary micro results at discharge 04/30/22 11:32 Urine Culture - Preliminary Urine,Clean Catch Gram negative isatu Discharge Plan Discharge Disposition: [facility] Date of Admission: 04/28/22 19:10 Attending Provider on Discharge: Diaz Segura Primary Care Provider: Provider,Not a Local Condition: Stable Anticipated Discharge Date/Time: 05/01/22 15:46 Discharge Medications: New oxycodone 5 mg capsule 2.5 mg PO Q4H PRN (Reason: pain) Qty: 30 0RF sennosides [Senna Lax] 8.6 mg Tablet 2 tab PO BID Qty: 60 0RF nicotine 21 mg/24 hr Patch 24 Hour 1 patch transdermal Q24H Qty: 28 0RF lorazepam 0.5 mg tablet 0.5 mg PO QHS PRNQty: 10 0RF cefuroxime axetil 250 mg tablet 250 mg PO BID Qty: 10 0RF lorazepam 0.5 mg tablet 0.5 mg PO QHS PRNQty: 10 0RF oxycodone 5 mg capsule 2.5 mg PO Q4H PRN (Reason: pain) Qty: 30 0RF Continued omeprazole 20 mg capsule,delayed release(DR/EC) 20 mg PO DAILY trospium 20 mg tablet 20 mg PO BID tamsulosin 0.4 mg capsule 0.4 mg PO Q24H mirtazapine 30 mg tablet 30 mg PO HS melatonin 5 mg capsule 5 mg PO HS cholecalciferol (vitamin D3) [Vitamin D3] 25 mcg (1,000 unit) capsule 25 mcg PO DAILY memantine 10 mg tablet 10 mg PO BID candesartan 16 mg tablet 16 mg PO DAILY atorvastatin 10 mg tablet 10 mg PO HS amlodipine 10 mg tablet 10 mg PO DAILY duloxetine 30 mg capsule,delayed release(DR/EC) 90 mg PO DAILY docusate sodium 100 mg capsule 100 mg PO BID Changed acetaminophen [Tylenol Extra Strength] 500 mg tablet 1,000 mg PO TID Qty: 100 0RF Discontinued oxycodone 5 mg tablet 5 mg PO Q4H PRN Label Comments: TAKE 1 TABLET BY MOUTH EVERY 4 HOURS NEEDED FOR PAIN lorazepam 0.5 mg tablet 0.5 mg PO QHS PRN Discharge Orders: Discharge Order (Routine); Ordered 05/01/22 Ordered By: Diaz Segura Activity Level: Up with assist Discharge Diet: Regular Follow Up Appointments: Provider,Not a Local [Primary Care Provider] - Admit to: SNF Discharge Potential: Fair Length of Stay: 30-90 days Can use facility standing orders?: Yes Code Status: Full Code TEDs: N/A Rehab Potential: Fair Therapy: Physical Therapy and Occupational Therapy Therapy Orders: Evaluate and Treat Oxygen: Yes Oxygen Delivery Method: Nasal Cannula Oxygen Flow Rate: 1-2 L/NC to keep O2 sats greater than 90% Urinary Catheter: No Orders are good >30 days: Yes
--- NOTE | 2022-05-01 16:15 | PC.SOCIAL ---
Addendum entered by HEMANTH Bradshaw 05/01/22 17:49: Pre-admission screen completed prior to admission to [facility], PAS#[id number]. Original Note: Discharge planning: [employer] Insurance prior authorization received for pt to discharge to the [facility], Auth #[id number]. Called dtr who is aware and agrees with discharge today to [facility]. She is very pleased with this plan. Dtr confirms she is POA for pt and will be signing pt into the facility. farmworker diversified crops to follow up as needed.
--- NOTE | 2022-05-01 18:29 | PC.NURSE ---
Discharge: Patient pleasant and cooperative at times. Patient was restless and verbally aggressive the last few hours before discharging. Patient vitally stable, lung clear, BS WNL, IV removed catheter intact. Patient on 1.5 L of o2 with stats at least 88%, patient is a mouth breather. Nicotine patch on left shoulder. Patient reports she is in pain but does not rate the pain, patient point at ribs and verbalizes ribs. oxycodone 5 mg given x2 this shift. Patient 1 assist, walker, gb. Patient incontinent and urinating. Patient ate lunch and ordered dinner but did not touch dinner. Reports given to catrachita in [facility]. Patient left by wheelchair with belongings to [facility] at 1804.
== END 2022-05-01 18:04 ==
LOC: ED 18:15 → MEDSURG 19:10
PROVIDERS: Hospitalist; Admitting Provider Family Medicine; Emergency Provider Family Medicine; Visit Provider Family Medicine
DX: S22.41XA Multiple fractures of ribs, right side, initial encounter for closed fracture (principal); J98.11 Atelectasis; J44.9 Chronic obstructive pulmonary disease, unspecified; R07.89 Other chest pain; M40.204 Unspecified kyphosis, thoracic region; R29.6 Repeated falls; W19.XXXA Unspecified fall, initial encounter; F03.90 Unspecified dementia, unspecified severity, without behavioral disturbance, psychotic disturbance, mood disturbance, and anxiety; F17.210 Nicotine dependence, cigarettes, uncomplicated; Z98.890 Other specified postprocedural states; Z87.898 Personal history of other specified conditions; K57.30 Diverticulosis of large intestine without perforation or abscess without bleeding; I12.9 Hypertensive chronic kidney disease with stage 1 through stage 4 chronic kidney disease, or unspecified chronic kidney disease; N18.30 Chronic kidney disease, stage 3 unspecified; E46 Unspecified protein-calorie malnutrition; R07.81 Pleurodynia; R41.0 Disorientation, unspecified; N39.0 Urinary tract infection, site not specified; R09.02 Hypoxemia; R35.0 Frequency of micturition; Z73.6 Limitation of activities due to disability; R26.89 Other abnormalities of gait and mobility; E78.5 Hyperlipidemia, unspecified
CPT/HCPCS: 36415; 71045; 80048; 81001; 81003; 81015; 84145; 85025; 87086; 87186; 87635; 93005; 94761; 96361; 96365; 96366; 97116; 97161; 97165; 97530; 97535; 99284; 99285; A9270; G0378; G0379; J0696; J7030; S4990

== ENCOUNTER 2022-05-01 16:02 | Inpatient (IN) | payer OTHER, SELFPAY ==
[2022-05-01 17:40] VITALS: BP 128/65; PULSE 99; RESP 22; TEMP 37; O2SAT 95
[2022-05-01] MEDS: LORazepam 0.5 MG TABLET PO (19:53)
[2022-05-01] MEDS: OXYCODONE 5 MG TABLET 2.5 MG PO (19:54)
[2022-05-01] MEDS: ACETAMINOPHEN 500 MG TABLET 1000 MG PO (19:58)
[2022-05-01] MEDS: ATORVASTATIN 10 MG TABLET PO (19:58)
[2022-05-01] MEDS: TAMSULOSIN HCL 0.4 MG CAPSULE PO (19:59)
[2022-05-01] MEDS: MIRTAZAPINE 15 MG TABLET 30 MG PO (19:59)
[2022-05-01] MEDS: MELATONIN 5 MG TABLET PO (19:59)
--- NOTE | 2022-05-01 20:00 | PC.NURSE ---
Medicare Replacement Note: Admitted from [facility]. Qualifying hospital stay dates 04/28-05/01/22. Coverage with [employer] began on 05/01/22, day of admission with end date expected of 05/05/22. Resident and daughter Jia notified of coverage due to fdc and therapy needs following fall at home that caused rib fx. Resident will receive therapy 5x/wkly, pain medication/monitoring, SOB, daily VS, unitl meets goals.
[2022-05-01 20:18] LABS: SARS PCR* Negative SARS-CoV-2 (Negative)
--- NOTE | 2022-05-01 20:24 | PC.NURSE ---
Covid-19 Status: Resident was tested for COVID -19 upon arrival at [facility] from Med Surg. Test result is negative at this time.
--- NOTE | 2022-05-01 21:06 | LTC.ADM ---
LTC Admission Note: o Admit from: [facility] Med Surg at 1800 o Mode of transport: Via Wheel chair o Accompanied by: Med Surg staff member o Transferred via: o Admitting dx:Rib pain due to recent fall, COPD, Dementia. o Mentation: Alert and oriented to date of bath. o Vital Signs: BP- 128/65, Pul- 99, Resp- 22, O2- 95 on 1.5 L, Temp- 98.6 o Lung sounds: Clear. o Overall condition: Fair. o Pain: Yes - PRN Oxycodone 2.5 mg given. o Mood/Behavior: Normal o Wound care: No wound observed at this time, but has 1.8cmX 2cm bruise to R-forearm noted. o Assistance level with ADL?s: Two. o Mobility: Two assist. o Eating: Regular diet. Refused to eat dinner.
[2022-05-01 21:41] VITALS: BP 123/69; PULSE 100; RESP 22; TEMP 37; O2SAT 95
[2022-05-02 00:57] VITALS: BP 126/75; PULSE 92; RESP 20; TEMP 37.2; O2SAT 95
[2022-05-02 04:34] VITALS: BP 130/72; PULSE 97; RESP 18; TEMP 37.1; O2SAT 95
--- NOTE | 2022-05-02 04:36 | PC.NURSE ---
New Admission Status: Has been sleeping soundly through the night. No attempts to get up independently. No c/o pain. Vital signs stable and WNL. Has removed supplemental O2 via NC multiple times this shift. Denies SOB. Has been pleasant with staff. No noted behavioral concerns.
--- NOTE | 2022-05-02 05:47 | PC.NURSE ---
BEHAVIOR: NARs attempted to provide cares at approximately 0520. Resident refused by repeatedly saying leave me alone please, I want you to get out of here. Was attempting to strike out and scratch staff. Resident was left in a safe setting and re-approached later without success. Resident did not have NC on at this time and refused to allow telegraphic typewriter repairer to reapply it.
[2022-05-02] MEDS: AMLODIPINE 10 MG TABLET PO (08:41)
[2022-05-02] MEDS: ACETAMINOPHEN 500 MG TABLET 1000 MG PO ×3 (08:41→19:09)
[2022-05-02] MEDS: CANDESARTAN CILEXETIL 32 MG TABLET 16 MG PO (08:41)
[2022-05-02] MEDS: DULOXETINE 30 MG CAPSULE DR 90 MG PO (08:41)
[2022-05-02] MEDS: OMEPRAZOLE 20 MG CAPSULE DR PO (08:42)
[2022-05-02] MEDS: MEMANTINE HCL 10 MG TABLET PO ×2 (08:42→15:12)
[2022-05-02] MEDS: SENNOSIDES 1 TAB TABLET 2 TAB PO ×2 (08:42→15:13)
[2022-05-02] MEDS: DOCUSATE SODIUM 100 MG CAPSULE PO ×2 (08:42→15:12)
[2022-05-02] MEDS: TROSPIUM CHLORIDE 20 MG TABLET PO ×2 (08:43→15:13)
[2022-05-02] MEDS: NICOTINE 21 MG PATCH 1 PATCH TRANSDERMA (08:50)
[2022-05-02 09:00] VITALS: BP 147/73; PULSE 93; RESP 20; TEMP 36.4; O2SAT 95
[2022-05-02 13:00] VITALS: BP 116/71; PULSE 107; RESP 20; TEMP 36.6; O2SAT 91
[2022-05-02] MEDS: LORazepam 0.5 MG TABLET PO (13:18)
--- NOTE | 2022-05-02 13:50 | PC.NURSE ---
BEHAVIOR: Ramez attempted to provide cares and get ready for breakfast at approximately 0745. Resident refused repeatedly saying I don't want, go away. She was able to take 8am meds with a glass of apple juice per her request this morning out difficulty and went back to asleep till 1230. Refused to eat lunch and taking her noon med. Resident attempting to get out of bed stating I want to get out of here to go home, let me go home. She Was attempting pushing, kicking to staff. Spiting prn Ativan 5x. Staff attempting to setting and re-approached without success,Resident requires 1:1 at this time for safety and preventing fall/injury. Message left to daughter and inform supervisor bottle house cleaners.. Will update to upcoming shift to [facility].
[2022-05-02] MEDS: OXYCODONE 5 MG TABLET 2.5 MG PO ×2 (15:14→20:04)
[2022-05-02 17:00] VITALS: BP 118/69; PULSE 99; RESP 19; TEMP 36.6; O2SAT 91
[2022-05-02] MEDS: ATORVASTATIN 10 MG TABLET PO (19:09)
[2022-05-02] MEDS: MELATONIN 5 MG TABLET PO (19:09)
[2022-05-02] MEDS: TAMSULOSIN HCL 0.4 MG CAPSULE PO (19:09)
[2022-05-02] MEDS: MIRTAZAPINE 15 MG TABLET 30 MG PO (19:09)
[2022-05-02 21:00] VITALS: BP 118/69; PULSE 99; RESP 19; TEMP 36.6; O2SAT 91
[2022-05-03] MEDS: NICOTINE 21 MG PATCH 1 PATCH TRANSDERMA (08:35)
[2022-05-03] MEDS: ACETAMINOPHEN 500 MG TABLET 1000 MG PO ×3 (09:23→19:21)
[2022-05-03] MEDS: CANDESARTAN CILEXETIL 32 MG TABLET 16 MG PO (09:24)
[2022-05-03] MEDS: AMLODIPINE 10 MG TABLET PO (09:24)
[2022-05-03] MEDS: DULOXETINE 30 MG CAPSULE DR 90 MG PO (09:26)
[2022-05-03] MEDS: DOCUSATE SODIUM 100 MG CAPSULE PO ×2 (09:26→15:10)
[2022-05-03] MEDS: TROSPIUM CHLORIDE 20 MG TABLET PO ×2 (09:38→15:10)
[2022-05-03] MEDS: OMEPRAZOLE 20 MG CAPSULE DR PO (09:39)
[2022-05-03] MEDS: SENNOSIDES 1 TAB TABLET 2 TAB PO ×2 (09:40→15:10)
[2022-05-03] MEDS: MEMANTINE HCL 10 MG TABLET PO ×2 (09:40→15:10)
--- NOTE | 2022-05-03 13:24 | PC.NURSE ---
Behavior: No behavioral issues noted this shift. Resident slept till 0930. Resident gave permission staff to assist her with her am cares but refused to take out her dentures for cleaning. Administered 8am medication at 0930 whole with out difficulty when she woke-up . Res ate poorly for breakfast stating I am not hungry leave me alone when staff encourage her to eat, ate pudding muffin and 120cc apple juice for fluid intake with much of staff encouragement for lunch.
[2022-05-03] MEDS: LORazepam 0.5 MG TABLET PO (19:19)
[2022-05-03] MEDS: ATORVASTATIN 10 MG TABLET PO (19:21)
[2022-05-03] MEDS: OXYCODONE 5 MG TABLET 2.5 MG PO (19:21)
[2022-05-03] MEDS: MELATONIN 5 MG TABLET PO (19:21)
[2022-05-03] MEDS: MIRTAZAPINE 15 MG TABLET 30 MG PO (19:22)
[2022-05-03] MEDS: TAMSULOSIN HCL 0.4 MG CAPSULE PO (19:22)
[2022-05-04] MEDS: OXYCODONE 5 MG TABLET 2.5 MG PO ×3 (07:34→19:38)
[2022-05-04] MEDS: ACETAMINOPHEN 500 MG TABLET 1000 MG PO ×3 (07:36→19:31)
[2022-05-04] MEDS: AMLODIPINE 10 MG TABLET PO (07:36)
[2022-05-04] MEDS: CANDESARTAN CILEXETIL 32 MG TABLET 16 MG PO (07:37)
[2022-05-04] MEDS: DULOXETINE 30 MG CAPSULE DR 90 MG PO (07:41)
[2022-05-04] MEDS: MEMANTINE HCL 10 MG TABLET PO ×2 (07:41→16:10)
[2022-05-04] MEDS: DOCUSATE SODIUM 100 MG CAPSULE PO ×2 (07:41→16:10)
[2022-05-04] MEDS: OMEPRAZOLE 20 MG CAPSULE DR PO (07:42)
[2022-05-04] MEDS: SENNOSIDES 1 TAB TABLET 2 TAB PO ×2 (07:42→16:10)
[2022-05-04] MEDS: NICOTINE 21 MG PATCH 1 PATCH TRANSDERMA (07:49)
--- NOTE | 2022-05-04 08:14 | PC.NURSE ---
Covid Swab Test day 3 done and sent to lab.
[2022-05-04] MEDS: TROSPIUM CHLORIDE 20 MG TABLET PO ×2 (08:35→16:10)
[2022-05-04 09:59] LABS: SARS PCR* Negative SARS-CoV-2 (Negative)
--- NOTE | 2022-05-04 11:00 | PC.NURSE ---
Spoke to daughter Jia: conversation had with Jia about discharge plans for resident. Jia became tearful and stated that she is feeling burnt out at home taking care of her mother. She states even at home her mother asks to go home. Resident recently lost her in August 2021 and he was her main support person. Daughter has been taking care of her father and mother for the past 6 years. Daughter states that she needs to talk with her siblings about the plan for the resident after therapy ends and at this time she feels her mother will need terminal manager placement. Daughter asks that mother not have a phone in her room because of her dementia and when her mother calls the conversations appear to be hard on both of them. Daughter would like to visit less to give her mother time to adjust without her. Resident noted to also have anxiety at home and spent her time in the recliner watching TV through out the day. She would call out for help and attempt to transfer herself often. Resident also recently had stents placed going under anesthesia which daughter feels progressed residents dementia further. Resident wears reading glasses and has full dentures. Daughter was assisting with oral cares at home. Resident did not like to eat breakfast through out her life. Had a small appetite at home and was receiving supplements. Would have no breakfast, sandwich for lunch and a small dinner. Does like desserts. Daughter states they are looking to drop [employer] coverage. Daughter is in agreement of changing medications to make resident more comfortable with pain and anxiety. TELEPHONE WORKER board updated with request to assess patient at next visit. Will continue to update daughter as needed.
--- NOTE | 2022-05-04 12:05 | REH.OT ---
Pt. was reclined in bed and willing to talk with therapist but not willing to get up to complete evaluation. OT will reattempt tomorrow.
--- NOTE | 2022-05-04 13:54 | PC.NURSE ---
Behavior: Resident was very resistive this morning, kicking, hitting, swearing and trying to scratch. She was putting legs over the side of the bed. Resident has been wheeling self throughout halls, stating she wants to find the door out so she can go home. Has been able to redirect for the most part.
--- NOTE | 2022-05-04 14:42 | NUTR.NU ---
Resident admitted 05/01/22 for rehab after fall resulting in rib fractures. Past medical history includes eating disorder, dementia, and malnutrition. COMMUNICATIONS EQUIPMENT SUPERVISOR spoke with resident's daughter and designated caregiver that resident enjoys supplements. RDN will order Ensure Enlive BID to provide ~700 kcals and ~40 grams protein to help meet estimated energy needs. Can offer variety of supplements/snacks if resident desires. RDN will follow-up with complete nutritional assessment at later date.
[2022-05-04] MEDS: LORazepam 0.5 MG TABLET PO (19:38)
[2022-05-04] MEDS: MELATONIN 5 MG TABLET PO (19:39)
[2022-05-04] MEDS: MIRTAZAPINE 15 MG TABLET 30 MG PO (19:39)
[2022-05-04] MEDS: ATORVASTATIN 10 MG TABLET PO (19:39)
[2022-05-04] MEDS: TAMSULOSIN HCL 0.4 MG CAPSULE PO (19:39)
--- NOTE | 2022-05-05 12:03 | PC.NURSE ---
Status/Order: Nena COTTON here. Updated of status. Medications reviewed with changes. Order: Change Ativan 0.5mg HS PRN to HS schedule, Increase Remeron 30mg to 45mg @ HS, D/C Oxycodone 2.5mg Q4H PRN, Oxycodone 5mg BID & Q4H PRN.
[2022-05-05] MEDS: TROSPIUM CHLORIDE 20 MG TABLET PO (13:33)
[2022-05-05] MEDS: SENNOSIDES 1 TAB TABLET 2 TAB PO ×2 (13:33→16:15)
[2022-05-05] MEDS: ACETAMINOPHEN 500 MG TABLET 1000 MG PO ×3 (13:34→19:43)
[2022-05-05] MEDS: CANDESARTAN CILEXETIL 32 MG TABLET 16 MG PO (13:34)
[2022-05-05] MEDS: AMLODIPINE 10 MG TABLET PO (13:34)
[2022-05-05] MEDS: DULOXETINE 30 MG CAPSULE DR 90 MG PO (13:35)
[2022-05-05] MEDS: DOCUSATE SODIUM 100 MG CAPSULE PO ×2 (13:35→16:14)
[2022-05-05] MEDS: OMEPRAZOLE 20 MG CAPSULE DR PO (13:36)
[2022-05-05] MEDS: MEMANTINE HCL 10 MG TABLET PO ×2 (13:36→16:14)
[2022-05-05] MEDS: NICOTINE 21 MG PATCH 1 PATCH TRANSDERMA (13:36)
--- NOTE | 2022-05-05 14:01 | PC.NURSE ---
Status: Change medications time d/t resident will sleep until 1000 or later.
[2022-05-05 14:09] VITALS: BP 149/74; PULSE 95; RESP 20; TEMP 36.9; O2SAT 95
--- NOTE | 2022-05-05 14:12 | PC.NURSE ---
Medicare Charting : Resident woke up at 1245, mood cheerful, refused breakfast and lunch. took all her medication without any issue. Vital sign WNL. No c/o pain . Able to ambulate with 1 assist and do some of the ADLs. Allowed staff to cut and trim her fingernails. Resident was sleeping during PT/OT visit.
[2022-05-05] MEDS: OXYCODONE 5 MG TABLET PO (16:15)
[2022-05-05] MEDS: MELATONIN 5 MG TABLET PO (19:48)
[2022-05-05] MEDS: MIRTAZAPINE 15 MG TABLET 45 MG PO (19:48)
[2022-05-05] MEDS: LORazepam 0.5 MG TABLET PO (19:48)
[2022-05-05] MEDS: TAMSULOSIN HCL 0.4 MG CAPSULE PO (19:48)
[2022-05-05] MEDS: ATORVASTATIN 10 MG TABLET PO (19:48)
--- NOTE | 2022-05-05 21:29 | PC.NURSE ---
Medication: Resident was given Trospium Chloride 20mg at 1600. Medication was found in residents orders but, not in the EMAR to administer.
[2022-05-06 07:00] VITALS: BP 132/67; PULSE 88; RESP 18; TEMP 36.3; O2SAT 95; BMI 22.3
[2022-05-06 08:00] VITALS: BP 132/67; PULSE 88; RESP 18; TEMP 36.3; O2SAT 95
[2022-05-06] MEDS: ACETAMINOPHEN 500 MG TABLET 1000 MG PO ×3 (09:07→19:59)
[2022-05-06] MEDS: SENNOSIDES 1 TAB TABLET 2 TAB PO ×2 (09:08→15:51)
[2022-05-06] MEDS: MEMANTINE HCL 10 MG TABLET PO ×2 (09:08→15:51)
[2022-05-06] MEDS: AMLODIPINE 10 MG TABLET PO (09:08)
[2022-05-06] MEDS: DULOXETINE 30 MG CAPSULE DR 90 MG PO (09:08)
[2022-05-06] MEDS: OMEPRAZOLE 20 MG CAPSULE DR PO (09:08)
[2022-05-06] MEDS: DOCUSATE SODIUM 100 MG CAPSULE PO ×2 (09:08→15:51)
[2022-05-06] MEDS: OXYCODONE 5 MG TABLET PO ×2 (09:10→15:51)
[2022-05-06] MEDS: CANDESARTAN CILEXETIL 32 MG TABLET 16 MG PO (09:41)
[2022-05-06] MEDS: NICOTINE 21 MG PATCH 1 PATCH TRANSDERMA (09:41)
[2022-05-06] MEDS: TROSPIUM CHLORIDE 20 MG TABLET PO ×3 (10:10→15:51)
--- NOTE | 2022-05-06 10:49 | PC.NURSE ---
Resident was given Trospium Chloride 20mg at 10:00. Medication was found in residents orders but, not in the EMAR to administer.
--- NOTE | 2022-05-06 11:49 | PC.NURSE ---
Day 5 Covid Swab Test: Done and sent to lab.
[2022-05-06 12:24] LABS: SARS PCR* Negative SARS-CoV-2 (Negative)
--- NOTE | 2022-05-06 12:24 | PC.NURSE ---
Medicare Charting : No verbal or noon verbal indication of pain noted or reported this shift. She took all 8am meds, ate breakfast and lunch in DR without any problems. Bath was done, no skin concerns noted at this time. Vital sign WNL. Resident needs assist of 1 with transfer/ambulation and limited assist of 1 with some of the ADLs such as dressing, grooming.?Continues with PT/OT as ordered, No Therapy session schedule for this shift..
[2022-05-06 15:54] VITALS: BMI 21.2
[2022-05-06] MEDS: ATORVASTATIN 10 MG TABLET PO (19:58)
[2022-05-06] MEDS: MELATONIN 5 MG TABLET PO (19:59)
[2022-05-06] MEDS: LORazepam 0.5 MG TABLET PO (19:59)
[2022-05-06] MEDS: MIRTAZAPINE 15 MG TABLET 45 MG PO (19:59)
[2022-05-06] MEDS: TAMSULOSIN HCL 0.4 MG CAPSULE PO (19:59)
--- NOTE | 2022-05-07 06:56 | PC.NURSE ---
Week #1: Baseline care plan reviewed, no changes. Nothing added to temporary care plan. Resident needs extensive one assist with dressing, grooming, and bathing. Encourage to participate as able. Is able to do oral cares after set up. Staff assist as needed. Feed self independently. Is on regular diet. No problem with chewing or swallowing noted. Vital signs reviewed, no concerns. Pain: Had a fall at home with multiple rib fracture. Receives Tylenol 1000mg TID, Oxycodone 5mg BID & Q4H PRN.Current pain regimen is effective. Needs for pain anticipated by staff.
[2022-05-07] MEDS: DOCUSATE SODIUM 100 MG CAPSULE PO ×2 (10:55→15:44)
[2022-05-07] MEDS: CANDESARTAN CILEXETIL 32 MG TABLET 16 MG PO (10:55)
[2022-05-07] MEDS: ACETAMINOPHEN 500 MG TABLET 1000 MG PO ×3 (10:55→20:13)
[2022-05-07] MEDS: MEMANTINE HCL 10 MG TABLET PO ×2 (10:55→15:44)
[2022-05-07] MEDS: DULOXETINE 30 MG CAPSULE DR 90 MG PO (10:55)
[2022-05-07] MEDS: AMLODIPINE 10 MG TABLET PO (10:55)
[2022-05-07] MEDS: TROSPIUM CHLORIDE 20 MG TABLET PO ×2 (10:56→15:44)
[2022-05-07] MEDS: SENNOSIDES 1 TAB TABLET 2 TAB PO ×2 (10:56→15:44)
[2022-05-07] MEDS: OMEPRAZOLE 20 MG CAPSULE DR PO (10:56)
[2022-05-07] MEDS: NICOTINE 21 MG PATCH 1 PATCH TRANSDERMA (10:56)
[2022-05-07] MEDS: OXYCODONE 5 MG TABLET PO ×2 (10:56→15:46)
[2022-05-07 13:02] VITALS: BP 165/84; PULSE 104; RESP 22; TEMP 36.4; O2SAT 93
--- NOTE | 2022-05-07 13:07 | PC.NURSE ---
Medicare Charting : Resident woke up at 1130 on her own. Took all her medication without any issue. Mood very pleasant. Refused breakfast and lunch however she took a bottle of Ensure Chocolate offered to her. No c/o of pain during this shift. Vital sign WNL. Continues PT/OT activity as scheduled. Resident needs assist of 1 with transfer.and grooming.
[2022-05-07 13:24] VITALS: BMI 21.2
--- NOTE | 2022-05-07 13:37 | PC.NURSE ---
Order: Ativan 0.5mg HS schedule d/c'd, new: Ativan 0.5mg HS PRN until 05/15 @ 1200.
--- NOTE | 2022-05-07 14:02 | PC.NURSE ---
Hot Liquid Assessment: Due to altered muscle strength and dementia resident to only drink hot liquids at a table.
[2022-05-07] MEDS: TAMSULOSIN HCL 0.4 MG CAPSULE PO (19:42)
[2022-05-07] MEDS: MIRTAZAPINE 15 MG TABLET 45 MG PO (19:42)
[2022-05-07] MEDS: ATORVASTATIN 10 MG TABLET PO (19:42)
[2022-05-07] MEDS: MELATONIN 5 MG TABLET PO (19:42)
--- NOTE | 2022-05-08 10:02 | PC.NURSE ---
Medicare: Continues with OT/PT as ordered, no verbal or non-verbal s/s of pain. Vitals done and charted.
[2022-05-08 10:03] VITALS: BP 142/78; PULSE 88; RESP 18; TEMP 36.6; O2SAT 96
[2022-05-08] MEDS: AMLODIPINE 10 MG TABLET PO (10:29)
[2022-05-08] MEDS: DULOXETINE 30 MG CAPSULE DR 90 MG PO (10:29)
[2022-05-08] MEDS: CANDESARTAN CILEXETIL 32 MG TABLET 16 MG PO (10:29)
[2022-05-08] MEDS: ACETAMINOPHEN 500 MG TABLET 1000 MG PO ×3 (10:29→20:27)
[2022-05-08] MEDS: DOCUSATE SODIUM 100 MG CAPSULE PO ×2 (10:29→15:29)
[2022-05-08] MEDS: MEMANTINE HCL 10 MG TABLET PO ×2 (10:29→15:29)
[2022-05-08] MEDS: NICOTINE 21 MG PATCH 1 PATCH TRANSDERMA (10:29)
[2022-05-08] MEDS: MAG HYDROX/ALUMINUM HYD/SIMETH 30 ML ORAL.SUSP PO (10:38)
[2022-05-08] MEDS: TROSPIUM CHLORIDE 20 MG TABLET PO ×2 (10:38→16:41)
[2022-05-08] MEDS: OXYCODONE 5 MG TABLET PO ×2 (10:38→15:31)
[2022-05-08] MEDS: SENNOSIDES 1 TAB TABLET 2 TAB PO ×2 (10:38→15:31)
[2022-05-08] MEDS: OMEPRAZOLE 20 MG CAPSULE DR PO (10:38)
--- NOTE | 2022-05-08 13:05 | PC.NURSE ---
Status: Received verbal order from Dr Vazquez for OK to change O2 charting to PRN
[2022-05-08] MEDS: MIRTAZAPINE 15 MG TABLET 45 MG PO (19:40)
[2022-05-08] MEDS: ATORVASTATIN 10 MG TABLET PO (19:40)
[2022-05-08] MEDS: TAMSULOSIN HCL 0.4 MG CAPSULE PO (19:40)
[2022-05-08] MEDS: MELATONIN 5 MG TABLET PO (19:40)
--- NOTE | 2022-05-09 06:25 | PC.NURSE ---
Bowel : Resident was given prone juice , was effective had a large bowel movement on 05/07/22.
--- NOTE | 2022-05-09 10:06 | PC.NURSE ---
Medicare: No verbal or nonverbal s/s of pain this shift so far, continues with OT/PT as ordered. Transfers and ambulates with assist of 1.
[2022-05-09 10:08] VITALS: BP 130/72; PULSE 82; RESP 20; TEMP 36.4; O2SAT 96
[2022-05-09] MEDS: OMEPRAZOLE 20 MG CAPSULE DR PO (10:46)
[2022-05-09] MEDS: AMLODIPINE 10 MG TABLET PO (10:46)
[2022-05-09] MEDS: ACETAMINOPHEN 500 MG TABLET 1000 MG PO ×3 (10:46→20:24)
[2022-05-09] MEDS: TROSPIUM CHLORIDE 20 MG TABLET PO ×2 (10:46→15:39)
[2022-05-09] MEDS: CANDESARTAN CILEXETIL 32 MG TABLET 16 MG PO (10:46)
[2022-05-09] MEDS: NICOTINE 21 MG PATCH 1 PATCH TRANSDERMA (10:46)
[2022-05-09] MEDS: OXYCODONE 5 MG TABLET PO ×2 (10:46→15:39)
[2022-05-09] MEDS: SENNOSIDES 1 TAB TABLET 2 TAB PO ×2 (10:46→15:39)
[2022-05-09] MEDS: DULOXETINE 30 MG CAPSULE DR 90 MG PO (10:46)
[2022-05-09] MEDS: MEMANTINE HCL 10 MG TABLET PO ×2 (10:46→15:39)
[2022-05-09] MEDS: DOCUSATE SODIUM 100 MG CAPSULE PO ×2 (10:46→15:39)
[2022-05-09] MEDS: polyethylene glycoL 3350 17 GM PACK PO (11:41)
[2022-05-09] MEDS: TAMSULOSIN HCL 0.4 MG CAPSULE PO (20:26)
[2022-05-09] MEDS: ATORVASTATIN 10 MG TABLET PO (20:26)
[2022-05-09] MEDS: MIRTAZAPINE 15 MG TABLET 45 MG PO (20:26)
[2022-05-09] MEDS: MELATONIN 5 MG TABLET PO (20:26)
[2022-05-10] MEDS: SENNOSIDES 1 TAB TABLET 2 TAB PO ×2 (10:42→15:33)
[2022-05-10] MEDS: AMLODIPINE 10 MG TABLET PO (10:42)
[2022-05-10] MEDS: OXYCODONE 5 MG TABLET PO ×2 (10:42→15:33)
[2022-05-10] MEDS: MEMANTINE HCL 10 MG TABLET PO ×2 (10:42→15:33)
[2022-05-10] MEDS: TROSPIUM CHLORIDE 20 MG TABLET PO ×2 (10:42→15:33)
[2022-05-10] MEDS: ACETAMINOPHEN 500 MG TABLET 1000 MG PO ×3 (10:42→19:59)
[2022-05-10] MEDS: OMEPRAZOLE 20 MG CAPSULE DR PO (10:42)
[2022-05-10] MEDS: CANDESARTAN CILEXETIL 32 MG TABLET 16 MG PO (10:42)
[2022-05-10] MEDS: NICOTINE 21 MG PATCH 1 PATCH TRANSDERMA (10:42)
[2022-05-10] MEDS: DULOXETINE 30 MG CAPSULE DR 90 MG PO (10:42)
[2022-05-10] MEDS: DOCUSATE SODIUM 100 MG CAPSULE PO ×2 (10:42→15:33)
[2022-05-10 11:09] VITALS: BP 132/72; PULSE 78; RESP 18; TEMP 36.3; O2SAT 96
--- NOTE | 2022-05-10 11:09 | PC.NURSE ---
Medicare: No verbal or nonverbal s/s of pain this shift so far, continues with OT/PT as ordered. Transfers and ambulates with assist of 1.
[2022-05-10] MEDS: ATORVASTATIN 10 MG TABLET PO (19:59)
[2022-05-10] MEDS: MIRTAZAPINE 15 MG TABLET 45 MG PO (19:59)
[2022-05-10] MEDS: TAMSULOSIN HCL 0.4 MG CAPSULE PO (19:59)
[2022-05-10] MEDS: MELATONIN 5 MG TABLET PO (19:59)
--- NOTE | 2022-05-10 21:34 | PC.NURSE ---
Refused cares: Resident allowed staff to change pad but, no other PM cares including changing cloths, washing face and, brushing teeth.
[2022-05-11 10:16] VITALS: BP 146/74; PULSE 82; RESP 18; TEMP 36.6; O2SAT 94
--- NOTE | 2022-05-11 10:18 | PC.NURSE ---
Medicare: No verbal or nonverbal s/s of pain this shift so far, continues with OT/PT as ordered. Transfers and ambulates with assist of 1.
[2022-05-11] MEDS: DULOXETINE 30 MG CAPSULE DR 90 MG PO (10:21)
[2022-05-11] MEDS: AMLODIPINE 10 MG TABLET PO (10:21)
[2022-05-11] MEDS: ACETAMINOPHEN 500 MG TABLET 1000 MG PO ×3 (10:21→19:30)
[2022-05-11] MEDS: MEMANTINE HCL 10 MG TABLET PO ×2 (10:21→15:33)
[2022-05-11] MEDS: CANDESARTAN CILEXETIL 32 MG TABLET 16 MG PO (10:21)
[2022-05-11] MEDS: DOCUSATE SODIUM 100 MG CAPSULE PO ×2 (10:21→15:33)
[2022-05-11] MEDS: NICOTINE 21 MG PATCH 1 PATCH TRANSDERMA (10:21)
[2022-05-11] MEDS: OXYCODONE 5 MG TABLET PO ×2 (10:22→15:33)
[2022-05-11] MEDS: OMEPRAZOLE 20 MG CAPSULE DR PO (10:22)
[2022-05-11] MEDS: SENNOSIDES 1 TAB TABLET 2 TAB PO ×2 (10:22→15:33)
[2022-05-11] MEDS: TROSPIUM CHLORIDE 20 MG TABLET PO ×2 (10:22→15:34)
[2022-05-11] MEDS: MELATONIN 5 MG TABLET PO (19:33)
[2022-05-11] MEDS: TAMSULOSIN HCL 0.4 MG CAPSULE PO (19:33)
[2022-05-11] MEDS: ATORVASTATIN 10 MG TABLET PO (19:33)
[2022-05-11] MEDS: MIRTAZAPINE 15 MG TABLET 45 MG PO (19:33)
[2022-05-12] MEDS: SENNOSIDES 1 TAB TABLET 2 TAB PO ×2 (10:21→16:25)
[2022-05-12] MEDS: TROSPIUM CHLORIDE 20 MG TABLET PO ×2 (10:21→16:25)
[2022-05-12] MEDS: OXYCODONE 5 MG TABLET PO ×2 (10:23→16:35)
[2022-05-12] MEDS: OMEPRAZOLE 20 MG CAPSULE DR PO (10:24)
[2022-05-12] MEDS: ACETAMINOPHEN 500 MG TABLET 1000 MG PO ×3 (10:28→20:02)
[2022-05-12] MEDS: AMLODIPINE 10 MG TABLET PO (10:28)
[2022-05-12] MEDS: DULOXETINE 30 MG CAPSULE DR 90 MG PO (10:28)
[2022-05-12] MEDS: DOCUSATE SODIUM 100 MG CAPSULE PO ×2 (10:28→16:25)
[2022-05-12] MEDS: MEMANTINE HCL 10 MG TABLET PO ×2 (10:28→16:25)
[2022-05-12] MEDS: CANDESARTAN CILEXETIL 32 MG TABLET 16 MG PO (10:28)
[2022-05-12] MEDS: NICOTINE 21 MG PATCH 1 PATCH TRANSDERMA (10:52)
[2022-05-12 10:57] VITALS: BP 121/68; PULSE 90; RESP 20; TEMP 36.8; O2SAT 97
--- NOTE | 2022-05-12 10:57 | PC.NURSE ---
Admission CARE CONFERENCE held: Resident, nursing, dietary, activities, and social service team present. Residents juani Ro present. Daughter Jia emotional during care conference and often crying. Education and reassurance given to her by IDT team and resources for her discussed with SS. Resident participates in activities occasionally. Reviewed ADLS, transfers and mobility. Resident is extensive assist with adls, hygiene and bathing. Resident is incontient of bladder and continent of boweUse of walker and gait belt for transfers and ambulation. Resident also uses w/c at times due to weakness when going to and from dining room/activities. Resident is resistive to cares at times. Nursing gives all medications. Mood is anxious and resident receives antidepressant medications. Discussed if daughter would like resident to receive the Bivalent injection and daughter stated not at this time with my dad dying of COVID recently, I have a lot of feelings about the vaccine and COVID. Care plan reviewed and updated. POLST reviewed. Is Full Code. Uses no restraints. Vulnerability- is at risk for being harmed due to weakness fragility. 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 Discussed therapy stopping and her progress with therapy since admission. No questions/concerns at this time.
--- NOTE | 2022-05-12 14:23 | PC.NURSE ---
Medicare: Resident has no behavior issues and no c/o pain during this shift. She ate good breakfast and lunch. She continue activity with OT/PT as ordered. Able to transfer from wheel chair to bed and walk short distance. She is currently assist of 1 and enjoy fellowship with other residents.
--- NOTE | 2022-05-12 16:00 | PC.NURSE ---
NOMNC NOTE: Resident was admitted from the hospital on 05/01/22 with right rib fx,COPD and dementia. Resident had fallen at home and then had a hospital stay there after d/t to rib fx and weakness. Resident on admission had orders for PT/OT. Resident did receive skilled inpatient services. It was determined by the interdisciplinary team that therapies will end on 05/14/22. Explained to POA son Valentin Campbell over the phone and emailed him a copy of form to sign as he lives in [place], due to dementia resident unable to sign herself that last covered day through [employer] will end on 05/14/22. Starting on 05/15/22 resident's coverage at the facility will be private pay. Explained that if he disagreed with this determination he has until noon on 05/13/22 to call Vincent @ to appeal diecision. Denial letter filed after received signature from son. Resident used 14 days of coverage. Copy was sent to son and original filed in residents chart.
[2022-05-12] MEDS: MIRTAZAPINE 15 MG TABLET 45 MG PO (19:43)
[2022-05-12] MEDS: TAMSULOSIN HCL 0.4 MG CAPSULE PO (19:43)
[2022-05-12] MEDS: MELATONIN 5 MG TABLET PO (19:43)
[2022-05-12] MEDS: ATORVASTATIN 10 MG TABLET PO (19:43)
[2022-05-12 21:06] VITALS: BP 128/68; PULSE 78; RESP 18; TEMP 36.3; O2SAT 95
--- NOTE | 2022-05-13 09:55 | PC.SOCIAL ---
Care conference held yesterday with daughter Barb and all members of the team present. Resident has adjusted well to placement in SNF with her dementia. Still refuses cares and staff just re-approach which works well. Resident has started coming out of her room for activities and for meals and this has also been going well. Pt.'s daughter is very pleased she has settled in as she became too much care for her at home. 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 Pt. is finished with therapies. Her information was sent to [facility] and res. was added to the waiting list at [facility] due to potential to wander and if needed in the future. Resident's son Valentin was in agreement with this.
[2022-05-13] MEDS: OMEPRAZOLE 20 MG CAPSULE DR PO (10:47)
[2022-05-13] MEDS: MEMANTINE HCL 10 MG TABLET PO ×2 (10:47→16:42)
[2022-05-13] MEDS: AMLODIPINE 10 MG TABLET PO (10:47)
[2022-05-13] MEDS: ACETAMINOPHEN 500 MG TABLET 1000 MG PO ×3 (10:47→20:44)
[2022-05-13] MEDS: CANDESARTAN CILEXETIL 32 MG TABLET 16 MG PO (10:47)
[2022-05-13] MEDS: DULOXETINE 30 MG CAPSULE DR 90 MG PO (10:47)
[2022-05-13] MEDS: DOCUSATE SODIUM 100 MG CAPSULE PO ×2 (10:47→16:42)
[2022-05-13] MEDS: NICOTINE 21 MG PATCH 1 PATCH TRANSDERMA (10:47)
[2022-05-13] MEDS: OXYCODONE 5 MG TABLET PO ×2 (10:47→16:44)
[2022-05-13] MEDS: TROSPIUM CHLORIDE 20 MG TABLET PO ×2 (10:48→16:42)
[2022-05-13] MEDS: SENNOSIDES 1 TAB TABLET 2 TAB PO ×2 (10:48→16:42)
[2022-05-13 12:45] VITALS: BP 169/77; PULSE 96; RESP 22; TEMP 36.3; O2SAT 95
[2022-05-13 13:19] VITALS: BP 169/77; PULSE 96; RESP 22; TEMP 36.3; O2SAT 95; BMI 21.0
--- NOTE | 2022-05-13 13:23 | PC.NURSE ---
Medicare: Resident has no behavior issues and no c/o pain during this shift. She woke up at 1130 and ate good lunch. Mood pleasant. Her vitals are WNL. She continue activity with OT/PT as ordered however she refused PT today.. Able to transfer from wheel chair to bed and walk short distance. She is currently assist of 1
[2022-05-13] MEDS: MELATONIN 5 MG TABLET PO (19:33)
[2022-05-13] MEDS: TAMSULOSIN HCL 0.4 MG CAPSULE PO (19:33)
[2022-05-13] MEDS: MIRTAZAPINE 15 MG TABLET 45 MG PO (19:33)
[2022-05-13] MEDS: ATORVASTATIN 10 MG TABLET PO (19:33)
--- NOTE | 2022-05-14 01:47 | PC.NURSE ---
WEEKLY CHARTING - WEEK 2: Vital signs reviewed. Blood pressures variable. Some elevated systolic values. Admission/baseline care plan reviewed - no change. Assist of 1 with transfers, ambulation, bed and w/c mobility. Uses FWW for ambulation. 1/2 side rails bilaterally to aid with bed mobility. Is at high risk for falls. Fall interventions include: falling star magnet, bed and chair alarms, gripper socks, call light in reach.
--- NOTE | 2022-05-14 07:35 | PC.NURSE ---
Week #2 - Mobility: Baseline care plan reviewed, bed & chair alarm added. Nothing added to temporary care plan. Resident needs one assist, transfer belt and walker with transfers/ambulation. Staff wheels to destinations. Top side rails up to aid for positioning/bed mobility. Has a bed/chair alarm. Vital signs reviewed, and it varies. Some elevated BP. Continue weekly VS monitoring. Fall: No fall since admission. Is a high fall risk. Had a fall at home.
--- NOTE | 2022-05-14 09:00 | PC.NURSE ---
MDS clarification: Reviewed MDS ADL charting for [facility] 05/07/22 noted to have inconsistent charting. Interviewed NARs and determined that errors were made. Reviewed with staff. Coded as such in MDS.
[2022-05-14 10:00] VITALS: BP 152/70; PULSE 80; RESP 18; TEMP 36.6; O2SAT 96
--- NOTE | 2022-05-14 10:02 | PC.NURSE ---
Medicare: No verbal or nonverbal s/s of pain this shift so far, continues with OT/PT as ordered. Transfers and ambulates with assist of 1.
[2022-05-14] MEDS: ACETAMINOPHEN 500 MG TABLET 1000 MG PO ×3 (10:04→20:02)
[2022-05-14] MEDS: OMEPRAZOLE 20 MG CAPSULE DR PO (10:05)
[2022-05-14] MEDS: DOCUSATE SODIUM 100 MG CAPSULE PO ×2 (10:05→15:42)
[2022-05-14] MEDS: CANDESARTAN CILEXETIL 32 MG TABLET 16 MG PO (10:05)
[2022-05-14] MEDS: NICOTINE 21 MG PATCH 1 PATCH TRANSDERMA (10:05)
[2022-05-14] MEDS: TROSPIUM CHLORIDE 20 MG TABLET PO ×2 (10:05→15:42)
[2022-05-14] MEDS: SENNOSIDES 1 TAB TABLET 2 TAB PO ×2 (10:05→15:42)
[2022-05-14] MEDS: MEMANTINE HCL 10 MG TABLET PO ×2 (10:05→15:42)
[2022-05-14] MEDS: DULOXETINE 30 MG CAPSULE DR 90 MG PO (10:05)
[2022-05-14] MEDS: OXYCODONE 5 MG TABLET PO ×2 (10:05→15:42)
[2022-05-14] MEDS: AMLODIPINE 10 MG TABLET PO (10:05)
[2022-05-14] MEDS: MELATONIN 5 MG TABLET PO (20:01)
[2022-05-14] MEDS: TAMSULOSIN HCL 0.4 MG CAPSULE PO (20:01)
[2022-05-14] MEDS: ATORVASTATIN 10 MG TABLET PO (20:01)
[2022-05-14] MEDS: MIRTAZAPINE 15 MG TABLET 45 MG PO (20:01)
[2022-05-15] MEDS: CANDESARTAN CILEXETIL 32 MG TABLET 16 MG PO (09:28)
[2022-05-15] MEDS: AMLODIPINE 10 MG TABLET PO (09:28)
[2022-05-15] MEDS: DULOXETINE 30 MG CAPSULE DR 90 MG PO (09:28)
[2022-05-15] MEDS: ACETAMINOPHEN 500 MG TABLET 1000 MG PO ×3 (09:28→23:22)
[2022-05-15] MEDS: SENNOSIDES 1 TAB TABLET 2 TAB PO ×2 (09:29→15:57)
[2022-05-15] MEDS: NICOTINE 21 MG PATCH 1 PATCH TRANSDERMA (09:29)
[2022-05-15] MEDS: TROSPIUM CHLORIDE 20 MG TABLET PO ×2 (09:29→15:57)
[2022-05-15] MEDS: OXYCODONE 5 MG TABLET PO ×2 (09:29→16:08)
[2022-05-15] MEDS: DOCUSATE SODIUM 100 MG CAPSULE PO ×2 (09:29→15:57)
[2022-05-15] MEDS: OMEPRAZOLE 20 MG CAPSULE DR PO (09:29)
[2022-05-15] MEDS: MEMANTINE HCL 10 MG TABLET PO ×2 (09:29→15:57)
--- NOTE | 2022-05-15 12:08 | PC.NURSE ---
Recert Visit: Resident seen by Dr. Vazquez. Orders reviewed and renewed for 45 days with changes. Order: On Wednesday, May 18 decrease Oxycodone as follows: Oxycodone 5 mg QAM X 14 days, then D/C scheduled dose and 1 tab Q4H PRN.
[2022-05-15 12:52] VITALS: BP 134/77; PULSE 87; TEMP 36.3; O2SAT 94
--- NOTE | 2022-05-15 13:00 | PC.NURSE ---
Medicare: Resident has no c/o pain or behavior issues during this shift. Mood pleasant. She woke up early today at 0830 and ate good breakfast but refused lunch. Her vitals are WNL. She continues activity with OT/PT as ordered. Able to transfer from wheel chair to bed and walk short distance. She is currently assist of 1
[2022-05-15] MEDS: ATORVASTATIN 10 MG TABLET PO (19:45)
[2022-05-15] MEDS: MELATONIN 5 MG TABLET PO (19:46)
[2022-05-15] MEDS: MIRTAZAPINE 15 MG TABLET 45 MG PO (19:46)
[2022-05-15] MEDS: TAMSULOSIN HCL 0.4 MG CAPSULE PO (19:46)
[2022-05-16 08:00] VITALS: BP 137/69; PULSE 74; RESP 18; TEMP 36.5; O2SAT 95
[2022-05-16] MEDS: AMLODIPINE 10 MG TABLET PO (09:59)
[2022-05-16] MEDS: ACETAMINOPHEN 500 MG TABLET 1000 MG PO ×3 (09:59→20:32)
[2022-05-16] MEDS: OXYCODONE 5 MG TABLET PO ×2 (10:00→15:49)
[2022-05-16] MEDS: DOCUSATE SODIUM 100 MG CAPSULE PO ×2 (10:00→15:46)
[2022-05-16] MEDS: CANDESARTAN CILEXETIL 32 MG TABLET 16 MG PO (10:00)
[2022-05-16] MEDS: OMEPRAZOLE 20 MG CAPSULE DR PO (10:00)
[2022-05-16] MEDS: MEMANTINE HCL 10 MG TABLET PO ×2 (10:00→15:47)
[2022-05-16] MEDS: SENNOSIDES 1 TAB TABLET 2 TAB PO ×2 (10:00→15:47)
[2022-05-16] MEDS: DULOXETINE 30 MG CAPSULE DR 90 MG PO (10:00)
[2022-05-16] MEDS: TROSPIUM CHLORIDE 20 MG TABLET PO ×2 (10:00→15:47)
[2022-05-16] MEDS: NICOTINE 21 MG PATCH 1 PATCH TRANSDERMA (10:51)
--- NOTE | 2022-05-16 13:10 | PC.NURSE ---
Medicare charting: No verbal or nonverbal indication of pain noted or reported this shift. VSS and charted. Resident needs limited assist of 1 with transfers, ambulation to in and out of BR and able to transfer independently wheel chair to bed. Continue with OT/PT as ordered. She ate breakfast in room and lunch 100% in DR. Incontinent with bowel and bladder.
[2022-05-16] MEDS: MIRTAZAPINE 15 MG TABLET 45 MG PO (19:32)
[2022-05-16] MEDS: ATORVASTATIN 10 MG TABLET PO (19:32)
[2022-05-16] MEDS: TAMSULOSIN HCL 0.4 MG CAPSULE PO (19:32)
[2022-05-16] MEDS: MELATONIN 5 MG TABLET PO (19:32)
[2022-05-17 08:00] VITALS: BP 127/69; PULSE 85; RESP 18; TEMP 36.9; O2SAT 95
[2022-05-17] MEDS: DOCUSATE SODIUM 100 MG CAPSULE PO ×2 (10:14→15:15)
[2022-05-17] MEDS: CANDESARTAN CILEXETIL 32 MG TABLET 16 MG PO (10:14)
[2022-05-17] MEDS: ACETAMINOPHEN 500 MG TABLET 1000 MG PO ×3 (10:14→21:00)
[2022-05-17] MEDS: AMLODIPINE 10 MG TABLET PO (10:14)
[2022-05-17] MEDS: DULOXETINE 30 MG CAPSULE DR 90 MG PO (10:14)
[2022-05-17] MEDS: SENNOSIDES 1 TAB TABLET 2 TAB PO ×2 (10:15→15:15)
[2022-05-17] MEDS: OXYCODONE 5 MG TABLET PO ×2 (10:15→15:15)
[2022-05-17] MEDS: OMEPRAZOLE 20 MG CAPSULE DR PO (10:15)
[2022-05-17] MEDS: MEMANTINE HCL 10 MG TABLET PO ×2 (10:15→15:15)
[2022-05-17] MEDS: TROSPIUM CHLORIDE 20 MG TABLET PO ×2 (10:15→15:15)
[2022-05-17] MEDS: NICOTINE 21 MG PATCH 1 PATCH TRANSDERMA (10:20)
--- NOTE | 2022-05-17 11:09 | PC.NURSE ---
Medicare Charting: VSS and documented. No verbal or nonverbal indication of pain noted or reported this shift so far. Resident able to transfer w/c to bed and wheel w/c independently. Stand-by/ supervision with ambulation in and out of BR. Self transferred using walker X1 this am from bed to BR with out assistance. Resident states I am sorry i couldn't wait when reminded her to use call light for help. No Therapy session scheduled for this shift. Continent with bladder and no bowel noted or reported this shift so far.
--- NOTE | 2022-05-17 15:37 | PC.PHA ---
CONSULTING PHARMACIST MEDICATION REVIEW: MEDICATION MONITORING: Mirtazapine 45 mg po hs Duloxetine 90 mg daily IRREGULARITIES OR COMMENTS: Patient admitted 05/01/22 post hospital admission for rib fractures. Up until end of March 2022 had been living in private home with family. Patient has been adjusting to her new surroundings and therefore not comfortable recommending GDR of either above listed medications at this time. In the event of an influenza outbreak her oseltamivir would need to be renally dosed for est. crcl~33ml/min Treatment Dose:30 mg po BID for 5 Days Prophylaxis Dose:30 mg po daily for 14 days or longer depending on date of last unknown date (more details in facility policy) Antibiotic of cefuroxime 250 mg bid for 10 days upon discharge from hospital and admission to facility to complete treatment for UTI. Suggested Course of Action: No medication changes to recommend for April
[2022-05-17] MEDS: ATORVASTATIN 10 MG TABLET PO (19:55)
[2022-05-17] MEDS: MIRTAZAPINE 15 MG TABLET 45 MG PO (19:55)
[2022-05-17] MEDS: TAMSULOSIN HCL 0.4 MG CAPSULE PO (19:55)
[2022-05-17] MEDS: MELATONIN 5 MG TABLET PO (19:55)
--- NOTE | 2022-05-17 22:20 | PC.NURSE ---
Resident spilt cup of hot coffee at dinner. Attempted to replace mug with lidded cup but resident refused and demanded coffee mug back. Staff monitored resident for remainder of meal, no further incident.
[2022-05-18] MEDS: DOCUSATE SODIUM 100 MG CAPSULE PO ×2 (09:43→16:10)
[2022-05-18] MEDS: MEMANTINE HCL 10 MG TABLET PO ×2 (09:43→16:10)
[2022-05-18] MEDS: AMLODIPINE 10 MG TABLET PO (09:43)
[2022-05-18] MEDS: ACETAMINOPHEN 500 MG TABLET 1000 MG PO ×3 (09:43→19:08)
[2022-05-18] MEDS: CANDESARTAN CILEXETIL 32 MG TABLET 16 MG PO (09:43)
[2022-05-18] MEDS: DULOXETINE 30 MG CAPSULE DR 90 MG PO (09:43)
[2022-05-18] MEDS: TROSPIUM CHLORIDE 20 MG TABLET PO ×2 (09:44→16:10)
[2022-05-18] MEDS: NICOTINE 21 MG PATCH 1 PATCH TRANSDERMA (09:44)
[2022-05-18] MEDS: OMEPRAZOLE 20 MG CAPSULE DR PO (09:44)
[2022-05-18] MEDS: OXYCODONE 5 MG TABLET PO (09:44)
[2022-05-18] MEDS: SENNOSIDES 1 TAB TABLET 2 TAB PO ×2 (09:44→16:10)
[2022-05-18] MEDS: MIRTAZAPINE 15 MG TABLET 45 MG PO (19:11)
[2022-05-18] MEDS: TAMSULOSIN HCL 0.4 MG CAPSULE PO (19:11)
[2022-05-18] MEDS: ATORVASTATIN 10 MG TABLET PO (19:11)
[2022-05-18] MEDS: MELATONIN 5 MG TABLET PO (19:11)
[2022-05-19] MEDS: DOCUSATE SODIUM 100 MG CAPSULE PO ×2 (09:42→15:45)
[2022-05-19] MEDS: NICOTINE 21 MG PATCH 1 PATCH TRANSDERMA (09:42)
[2022-05-19] MEDS: OMEPRAZOLE 20 MG CAPSULE DR PO (09:42)
[2022-05-19] MEDS: DULOXETINE 30 MG CAPSULE DR 90 MG PO (09:42)
[2022-05-19] MEDS: CANDESARTAN CILEXETIL 32 MG TABLET 16 MG PO (09:42)
[2022-05-19] MEDS: AMLODIPINE 10 MG TABLET PO (09:42)
[2022-05-19] MEDS: MEMANTINE HCL 10 MG TABLET PO ×2 (09:42→15:45)
[2022-05-19] MEDS: ACETAMINOPHEN 500 MG TABLET 1000 MG PO ×3 (09:42→19:32)
[2022-05-19] MEDS: OXYCODONE 5 MG TABLET PO (09:42)
[2022-05-19] MEDS: TROSPIUM CHLORIDE 20 MG TABLET PO ×2 (09:43→15:45)
[2022-05-19] MEDS: SENNOSIDES 1 TAB TABLET 2 TAB PO ×2 (09:43→15:45)
--- NOTE | 2022-05-19 13:06 | PC.NURSE ---
Order: [id number] daily by Nena COTTON.
[2022-05-19] MEDS: MELATONIN 5 MG TABLET PO (19:34)
[2022-05-19] MEDS: ATORVASTATIN 10 MG TABLET PO (19:34)
[2022-05-19] MEDS: TAMSULOSIN HCL 0.4 MG CAPSULE PO (19:36)
[2022-05-19] MEDS: MIRTAZAPINE 15 MG TABLET 45 MG PO (19:36)
[2022-05-20] MEDS: CITALOPRAM HYDROBROMIDE 20 MG TABLET 10 MG PO (09:11)
[2022-05-20] MEDS: ACETAMINOPHEN 500 MG TABLET 1000 MG PO ×3 (09:48→20:12)
[2022-05-20] MEDS: DOCUSATE SODIUM 100 MG CAPSULE PO ×2 (09:48→16:12)
[2022-05-20] MEDS: MEMANTINE HCL 10 MG TABLET PO ×2 (09:48→16:12)
[2022-05-20] MEDS: DULOXETINE 30 MG CAPSULE DR 90 MG PO (09:48)
[2022-05-20] MEDS: AMLODIPINE 10 MG TABLET PO (09:48)
[2022-05-20] MEDS: CANDESARTAN CILEXETIL 32 MG TABLET 16 MG PO (09:48)
[2022-05-20] MEDS: OXYCODONE 5 MG TABLET PO (09:51)
[2022-05-20] MEDS: OMEPRAZOLE 20 MG CAPSULE DR PO (09:51)
[2022-05-20] MEDS: TROSPIUM CHLORIDE 20 MG TABLET PO ×2 (09:51→16:12)
[2022-05-20] MEDS: SENNOSIDES 1 TAB TABLET 2 TAB PO ×2 (09:51→16:12)
[2022-05-20] MEDS: NICOTINE 21 MG PATCH 1 PATCH TRANSDERMA (09:52)
[2022-05-20 13:30] VITALS: BP 155/73; PULSE 83; RESP 18; TEMP 37.1; O2SAT 95
[2022-05-20] MEDS: TAMSULOSIN HCL 0.4 MG CAPSULE PO (19:44)
[2022-05-20] MEDS: ATORVASTATIN 10 MG TABLET PO (19:44)
[2022-05-20] MEDS: MIRTAZAPINE 15 MG TABLET 45 MG PO (19:44)
[2022-05-20] MEDS: MELATONIN 5 MG TABLET PO (19:44)
--- NOTE | 2022-05-21 03:31 | PC.NURSE ---
WEEKLY CHARTING - WEEK 3: Vital signs reviewed. Admission/baseline care plan reviewed - no change. Currently has a bruise on right forearm which is being monitored. Is incontinent of bowel and bladder with some continent episodes. Wears medium brief. Assist of 1 with toileting needs including pad management, hillary-cares, and clothing adjustment.
--- NOTE | 2022-05-21 05:34 | PC.NURSE ---
BEHAVIOR: Resident has been delusional throughout the night. Making statements that staff has kidnapped her and she is getting out of here. Staff have attempted to redirect without success. Real Estate Account Executive addressed pain and resident denied also stated I wouldn't take a pill anyway, it's probably poison. Staff have attempted multiple interventions including, toileting, food, drink, 1:1, leave in safe setting, TV with no effect.
[2022-05-21] MEDS: CANDESARTAN CILEXETIL 32 MG TABLET 16 MG PO (07:00)
[2022-05-21] MEDS: ACETAMINOPHEN 500 MG TABLET 1000 MG PO ×3 (07:00→20:03)
[2022-05-21] MEDS: DULOXETINE 30 MG CAPSULE DR 90 MG PO (07:00)
[2022-05-21] MEDS: TROSPIUM CHLORIDE 20 MG TABLET PO ×2 (07:00→16:01)
[2022-05-21] MEDS: OXYCODONE 5 MG TABLET PO (07:00)
[2022-05-21] MEDS: SENNOSIDES 1 TAB TABLET 2 TAB PO ×2 (07:00→16:01)
[2022-05-21] MEDS: MEMANTINE HCL 10 MG TABLET PO ×2 (07:00→16:01)
[2022-05-21] MEDS: OMEPRAZOLE 20 MG CAPSULE DR PO (07:00)
[2022-05-21] MEDS: DOCUSATE SODIUM 100 MG CAPSULE PO ×2 (07:00→16:01)
[2022-05-21] MEDS: AMLODIPINE 10 MG TABLET PO (07:00)
[2022-05-21] MEDS: CITALOPRAM HYDROBROMIDE 20 MG TABLET 10 MG PO (08:19)
[2022-05-21] MEDS: NICOTINE 21 MG PATCH 1 PATCH TRANSDERMA (09:40)
--- NOTE | 2022-05-21 13:26 | PC.NURSE ---
Evacuee assessment: resident can ambulate but not far without becoming SOB/weak. Level 2 appropriate at this time.
--- NOTE | 2022-05-21 13:46 | PC.NURSE ---
Behavior Issue: Resident woke up at 0700 to inform staff that she was kidnapped last night and she didn't sleep at all. She also claim she is very hungry because she wasn't allowed to go out for supper. Staff tried to redirect resident and bring for her a breakfast tray. Product Development Worker gave her the morning medication and assist her to bed after breakfast. Around 0820 resident got up and wanted call the police to informed about her kidnapped. Staff tried to redirect multiple times however she became very paranoid that all the staff are involved in the plot to kidnapped. She refused to listen and became very angry. She insist to call the police and came to counter and call 911. She refused to trust any of the staff and wanted to do as she please. Staff let resident call 911 and let her calm. after 1 hour resident calm down but refused to rest. Se keep on walking up and down the hallway throughout the shift.
--- NOTE | 2022-05-21 14:17 | PC.NURSE ---
Week #3 - Toileting: Baseline care plan reviewed, no changes. Nothing added to temporary care plan. Resident has some bowel incontinence, & frequent bladder incontinence. Needs one assist with toileting. Transfers with a walker, gait belt. Wears medium briefs. Pads, hillary cares, clothing adjustment done by staff. Vital signs reviewed, BP with few elevated values. Continue with weekly vital signs. Skin: Has a bruise on (R) forearm monitored until resolved. Skin is checked during cares and on bath day.
[2022-05-21 14:30] VITALS: BMI 22.4
[2022-05-21 15:01] VITALS: BMI 22.4
[2022-05-21] MEDS: MIRTAZAPINE 15 MG TABLET 45 MG PO (20:03)
[2022-05-21] MEDS: ATORVASTATIN 10 MG TABLET PO (20:03)
[2022-05-21] MEDS: MELATONIN 5 MG TABLET PO (20:03)
[2022-05-21] MEDS: TAMSULOSIN HCL 0.4 MG CAPSULE PO (20:03)
[2022-05-22] MEDS: CITALOPRAM HYDROBROMIDE 20 MG TABLET 10 MG PO (08:18)
[2022-05-22] MEDS: CANDESARTAN CILEXETIL 32 MG TABLET 16 MG PO (10:16)
[2022-05-22] MEDS: DULOXETINE 30 MG CAPSULE DR 90 MG PO (10:16)
[2022-05-22] MEDS: DOCUSATE SODIUM 100 MG CAPSULE PO ×2 (10:16→15:35)
[2022-05-22] MEDS: ACETAMINOPHEN 500 MG TABLET 1000 MG PO ×3 (10:16→20:09)
[2022-05-22] MEDS: OMEPRAZOLE 20 MG CAPSULE DR PO (10:16)
[2022-05-22] MEDS: MEMANTINE HCL 10 MG TABLET PO ×2 (10:16→15:35)
[2022-05-22] MEDS: AMLODIPINE 10 MG TABLET PO (10:16)
[2022-05-22] MEDS: TROSPIUM CHLORIDE 20 MG TABLET PO ×2 (10:17→15:35)
[2022-05-22] MEDS: SENNOSIDES 1 TAB TABLET 2 TAB PO ×2 (10:17→15:35)
[2022-05-22] MEDS: OXYCODONE 5 MG TABLET PO (10:17)
[2022-05-22] MEDS: NICOTINE 21 MG PATCH 1 PATCH TRANSDERMA (10:39)
[2022-05-22] MEDS: ATORVASTATIN 10 MG TABLET PO (19:20)
[2022-05-22] MEDS: TAMSULOSIN HCL 0.4 MG CAPSULE PO (19:20)
[2022-05-22] MEDS: MELATONIN 5 MG TABLET PO (19:20)
[2022-05-22] MEDS: MIRTAZAPINE 15 MG TABLET 45 MG PO (19:20)
[2022-05-23] MEDS: CITALOPRAM HYDROBROMIDE 20 MG TABLET 10 MG PO (08:01)
[2022-05-23] MEDS: DOCUSATE SODIUM 100 MG CAPSULE PO ×2 (10:05→16:06)
[2022-05-23] MEDS: AMLODIPINE 10 MG TABLET PO (10:05)
[2022-05-23] MEDS: NICOTINE 21 MG PATCH 1 PATCH TRANSDERMA (10:05)
[2022-05-23] MEDS: CANDESARTAN CILEXETIL 32 MG TABLET 16 MG PO (10:05)
[2022-05-23] MEDS: DULOXETINE 30 MG CAPSULE DR 90 MG PO (10:05)
[2022-05-23] MEDS: MEMANTINE HCL 10 MG TABLET PO ×2 (10:05→16:04)
[2022-05-23] MEDS: ACETAMINOPHEN 500 MG TABLET 1000 MG PO ×3 (10:05→21:04)
[2022-05-23] MEDS: TROSPIUM CHLORIDE 20 MG TABLET PO ×2 (10:06→16:00)
[2022-05-23] MEDS: OXYCODONE 5 MG TABLET PO (10:06)
[2022-05-23] MEDS: SENNOSIDES 1 TAB TABLET 2 TAB PO ×2 (10:06→16:04)
[2022-05-23] MEDS: OMEPRAZOLE 20 MG CAPSULE DR PO (10:06)
--- NOTE | 2022-05-23 10:13 | PC.NURSE ---
Fall F/U regarding right knee pain: Call [facility] at 0930 and left message to busperson nurse Nanci regarding resident`s knee pain. Received call at 1015 order from busperson N/P Tisha Barrett to do right knee X-ray ( 2 view) to rule out fracture related to pain from fall.
--- NOTE | 2022-05-23 13:35 | PC.NURSE ---
Skin Concern : Bruise on her right forearm has completely resolved and intervention completed.
[2022-05-23] MEDS: ATORVASTATIN 10 MG TABLET PO (19:36)
[2022-05-23] MEDS: TAMSULOSIN HCL 0.4 MG CAPSULE PO (19:36)
[2022-05-23] MEDS: MIRTAZAPINE 15 MG TABLET 45 MG PO (19:36)
[2022-05-23] MEDS: MELATONIN 5 MG TABLET PO (19:36)
[2022-05-24] MEDS: CITALOPRAM HYDROBROMIDE 20 MG TABLET 10 MG PO (07:57)
[2022-05-24] MEDS: ACETAMINOPHEN 500 MG TABLET 1000 MG PO ×3 (09:29→21:20)
[2022-05-24] MEDS: MEMANTINE HCL 10 MG TABLET PO ×2 (09:29→16:01)
[2022-05-24] MEDS: DULOXETINE 30 MG CAPSULE DR 90 MG PO (09:29)
[2022-05-24] MEDS: CANDESARTAN CILEXETIL 32 MG TABLET 16 MG PO (09:29)
[2022-05-24] MEDS: AMLODIPINE 10 MG TABLET PO (09:29)
[2022-05-24] MEDS: DOCUSATE SODIUM 100 MG CAPSULE PO ×2 (09:29→16:01)
[2022-05-24] MEDS: SENNOSIDES 1 TAB TABLET 2 TAB PO ×2 (09:30→16:01)
[2022-05-24] MEDS: OMEPRAZOLE 20 MG CAPSULE DR PO (09:30)
[2022-05-24] MEDS: OXYCODONE 5 MG TABLET PO (09:30)
[2022-05-24] MEDS: TROSPIUM CHLORIDE 20 MG TABLET PO ×2 (09:30→16:01)
[2022-05-24] MEDS: NICOTINE 21 MG PATCH 1 PATCH TRANSDERMA (09:35)
[2022-05-24] MEDS: TAMSULOSIN HCL 0.4 MG CAPSULE PO (19:38)
[2022-05-24] MEDS: MIRTAZAPINE 15 MG TABLET 45 MG PO (19:38)
[2022-05-24] MEDS: ATORVASTATIN 10 MG TABLET PO (19:38)
[2022-05-24] MEDS: MELATONIN 5 MG TABLET PO (19:38)
--- NOTE | 2022-05-25 05:13 | PC.NURSE ---
Behavior : Resident has been refusing toileting ( 0200) by overnight staff . She was angry and abusive with staff . When staff toilet her again at 0500, resident became angry and self-transfer herself to the toilet and lock the toilet door. She urinated on the floor and came back to the bed.
[2022-05-25] MEDS: CITALOPRAM HYDROBROMIDE 20 MG TABLET 10 MG PO (08:10)
[2022-05-25] MEDS: ACETAMINOPHEN 500 MG TABLET 1000 MG PO ×3 (10:09→20:55)
[2022-05-25] MEDS: AMLODIPINE 10 MG TABLET PO (10:10)
[2022-05-25] MEDS: CANDESARTAN CILEXETIL 32 MG TABLET 16 MG PO (10:10)
[2022-05-25] MEDS: DOCUSATE SODIUM 100 MG CAPSULE PO ×2 (10:10→15:24)
[2022-05-25] MEDS: DULOXETINE 30 MG CAPSULE DR 90 MG PO (10:10)
[2022-05-25] MEDS: OMEPRAZOLE 20 MG CAPSULE DR PO (10:11)
[2022-05-25] MEDS: MEMANTINE HCL 10 MG TABLET PO ×2 (10:11→15:24)
[2022-05-25] MEDS: TROSPIUM CHLORIDE 20 MG TABLET PO ×2 (10:11→15:24)
[2022-05-25] MEDS: SENNOSIDES 1 TAB TABLET 2 TAB PO ×2 (10:11→15:24)
[2022-05-25] MEDS: OXYCODONE 5 MG TABLET PO (10:13)
[2022-05-25] MEDS: NICOTINE 21 MG PATCH 1 PATCH TRANSDERMA (10:23)
--- NOTE | 2022-05-25 12:59 | PC.NURSE ---
Behavior : Resident refused am cares this morning after waken-up around 10am , She was angry with staff for attempting to assist her with cares , refused breakfast except 240cc of apple juice with am meds. She was angry with staff when following her with w/c for her safety due to her self ambulation, She states go away if i not i will call a police give me a phone to call the police. Resident has been difficulty to redirect for approximately 2 hours. She is sitting in her room drinking coffee and muffin per her request at this time. Denied pain.will continues to monitor resident behavior.
[2022-05-25] MEDS: ATORVASTATIN 10 MG TABLET PO (19:07)
[2022-05-25] MEDS: MELATONIN 5 MG TABLET PO (19:07)
[2022-05-25] MEDS: MIRTAZAPINE 15 MG TABLET 45 MG PO (19:08)
[2022-05-25] MEDS: TAMSULOSIN HCL 0.4 MG CAPSULE PO (19:08)
--- NOTE | 2022-05-26 05:35 | PC.NURSE ---
Evacuee assessment: Resident is ambulatory but not for long distances will need wheelchair and staff assist to evacuate.
[2022-05-26] MEDS: CITALOPRAM HYDROBROMIDE 20 MG TABLET 10 MG PO (07:21)
[2022-05-26] MEDS: ACETAMINOPHEN 500 MG TABLET 1000 MG PO ×3 (09:10→20:01)
[2022-05-26] MEDS: DOCUSATE SODIUM 100 MG CAPSULE PO ×2 (09:10→16:11)
[2022-05-26] MEDS: MEMANTINE HCL 10 MG TABLET PO ×2 (09:10→16:11)
[2022-05-26] MEDS: AMLODIPINE 10 MG TABLET PO (09:10)
[2022-05-26] MEDS: CANDESARTAN CILEXETIL 32 MG TABLET 16 MG PO (09:10)
[2022-05-26] MEDS: NICOTINE 21 MG PATCH 1 PATCH TRANSDERMA (09:10)
[2022-05-26] MEDS: DULOXETINE 30 MG CAPSULE DR 90 MG PO (09:10)
[2022-05-26] MEDS: OMEPRAZOLE 20 MG CAPSULE DR PO (09:12)
[2022-05-26] MEDS: TROSPIUM CHLORIDE 20 MG TABLET PO ×2 (09:12→16:11)
[2022-05-26] MEDS: SENNOSIDES 1 TAB TABLET 2 TAB PO ×2 (09:15→16:11)
[2022-05-26] MEDS: OXYCODONE 5 MG TABLET PO (09:15)
[2022-05-26] MEDS: MIRTAZAPINE 15 MG TABLET 45 MG PO (19:30)
[2022-05-26] MEDS: ATORVASTATIN 10 MG TABLET PO (19:30)
[2022-05-26] MEDS: MELATONIN 5 MG TABLET PO (19:30)
[2022-05-26] MEDS: TAMSULOSIN HCL 0.4 MG CAPSULE PO (19:30)
--- NOTE | 2022-05-26 21:48 | PC.NURSE ---
Behavior : Resident? refused hs cares stating no no go away i don't need your help i need to pack my stuff so i can leave tomorrow loud and angry when staff asked to assist for hs cares.Resident is in bed at this time with much of redirection, spent 1:1 the majority of this evening. Left note to SKIN SPECIALIST. Will update the upcoming shift to continues to monitor.
--- NOTE | 2022-05-26 22:11 | PC.NURSE ---
Behavior : Resident? refused hs cares? stating no no go away i don't need your help i need to pack my stuff? so? i can leave tomorrow loud and angry when staff asked to assist for hs cares.Resident sleeping? in bed? at this time with much of redirection, spent 1:1 the majority time after supper. Left note to OCCUPATIONAL THERAPY DIRECTOR. Will update the upcoming shift to continues to monitor.
--- NOTE | 2022-05-27 05:31 | PC.NURSE ---
Resident set off bed alarm at beginning of shift. Tower Foreman entered room to assist and resident became agitated. Yelling at freelance writer to either get out or get me my pants. States that she has to leave because someone is waiting to pick her up outside. Tower Foreman attempted to redirect without success. Resident laid back down in bed and stated I'll wait til morning, but you can bet I'll have your fucking job for this you fucking bitch! Has slept in bed remainder of shift without incident.
[2022-05-27] MEDS: CITALOPRAM HYDROBROMIDE 20 MG TABLET 10 MG PO (08:15)
[2022-05-27] MEDS: ACETAMINOPHEN 500 MG TABLET 1000 MG PO ×3 (10:07→20:22)
[2022-05-27] MEDS: CANDESARTAN CILEXETIL 32 MG TABLET 16 MG PO (10:07)
[2022-05-27] MEDS: NICOTINE 21 MG PATCH 1 PATCH TRANSDERMA (10:07)
[2022-05-27] MEDS: DOCUSATE SODIUM 100 MG CAPSULE PO ×2 (10:07→15:12)
[2022-05-27] MEDS: AMLODIPINE 10 MG TABLET PO (10:07)
[2022-05-27] MEDS: MEMANTINE HCL 10 MG TABLET PO ×2 (10:07→15:12)
[2022-05-27] MEDS: DULOXETINE 30 MG CAPSULE DR 90 MG PO (10:07)
[2022-05-27] MEDS: OMEPRAZOLE 20 MG CAPSULE DR PO (10:08)
[2022-05-27] MEDS: OXYCODONE 5 MG TABLET PO (10:08)
[2022-05-27] MEDS: TROSPIUM CHLORIDE 20 MG TABLET PO ×2 (10:08→15:12)
[2022-05-27] MEDS: SENNOSIDES 1 TAB TABLET 2 TAB PO ×2 (10:08→15:12)
[2022-05-27 10:49] VITALS: BP 164/96; PULSE 113; RESP 22; TEMP 37; O2SAT 94
[2022-05-27] MEDS: ATORVASTATIN 10 MG TABLET PO (19:13)
[2022-05-27] MEDS: TAMSULOSIN HCL 0.4 MG CAPSULE PO (19:13)
[2022-05-27] MEDS: MIRTAZAPINE 15 MG TABLET 45 MG PO (19:13)
[2022-05-27] MEDS: MELATONIN 5 MG TABLET PO (19:13)
--- NOTE | 2022-05-27 22:08 | PC.NURSE ---
Resident near nurse's station trying to find a phone or a phone number to call her brother or sister to come and pick her up. Asking multiple staff and a resident on where the exit is. Redirected for a short period of time. Multiple statements of negative self-talk, stating, I need a pill to end it all. Resident sat with staff 1:1. Appears withdrawn. Denies any pain or discomfort. Resistive to cares at HS. Was brought to bathroom and now resting at this time.
--- NOTE | 2022-05-28 02:13 | PC.NURSE ---
WEEKLY CHARTING - WEEK 4: Vital signs reviewed. Temporary and admission/baseline care plan reviewed - no change. Numerous documented behavioral episodes. Currently receives melatonin 5mg at HS, mirtazapine 45mg at HS, duloxetine 90mg daily, and citalopram 10mg daily. No noted adverse drug effects. Resident is able to communicate needs. Cognitive deficit r/t dementia. Hears adequately. Wears glasses. Scheduled and PRN lorazepam have been discontinued in the last month. All medications administered by licensed nurse.
--- NOTE | 2022-05-28 05:37 | PC.NURSE ---
BEHAVIOR: Resident activated bed alarm and LASER OPERATOR went to room to assist. Resident was already entering bathroom when LASER OPERATOR arrived at room. Resident had incontinent stool in brief and was resistive to allowing LASER OPERATOR to assist. Resident became angry/agitated a/e/b yelling, swearing, and pushing staff hands away. Resident removed brief soiled with BM and threw it at LASER OPERATOR. Allowed placement of new brief but refused to allow thorough hillary-care.
[2022-05-28] MEDS: CITALOPRAM HYDROBROMIDE 20 MG TABLET 10 MG PO (08:30)
[2022-05-28] MEDS: CANDESARTAN CILEXETIL 32 MG TABLET 16 MG PO ×2 (09:36→10:10)
[2022-05-28] MEDS: AMLODIPINE 10 MG TABLET PO (09:36)
[2022-05-28] MEDS: MEMANTINE HCL 10 MG TABLET PO ×2 (09:36→15:41)
[2022-05-28] MEDS: DOCUSATE SODIUM 100 MG CAPSULE PO ×2 (09:36→15:41)
[2022-05-28] MEDS: DULOXETINE 30 MG CAPSULE DR 90 MG PO (09:36)
[2022-05-28] MEDS: ACETAMINOPHEN 500 MG TABLET 1000 MG PO ×3 (09:36→20:03)
[2022-05-28] MEDS: NICOTINE 21 MG PATCH 1 PATCH TRANSDERMA (09:37)
[2022-05-28] MEDS: OMEPRAZOLE 20 MG CAPSULE DR PO (09:37)
[2022-05-28] MEDS: SENNOSIDES 1 TAB TABLET 2 TAB PO ×2 (09:37→15:41)
[2022-05-28] MEDS: TROSPIUM CHLORIDE 20 MG TABLET PO ×3 (09:37→15:40)
[2022-05-28] MEDS: OXYCODONE 5 MG TABLET PO (09:37)
--- NOTE | 2022-05-28 12:18 | PC.NURSE ---
Status: DEPLOYMENT TECHNICIAN here. Aware some days resident has increase agitation/anxiety. Recommends: continue to monitor, do non-pharmacologic interventions.
[2022-05-28] MEDS: MELATONIN 5 MG TABLET PO (20:03)
[2022-05-28] MEDS: ATORVASTATIN 10 MG TABLET PO (20:03)
[2022-05-28] MEDS: MIRTAZAPINE 15 MG TABLET 45 MG PO (20:03)
[2022-05-28] MEDS: TAMSULOSIN HCL 0.4 MG CAPSULE PO (20:03)
[2022-05-29] MEDS: CITALOPRAM HYDROBROMIDE 20 MG TABLET 10 MG PO (10:11)
[2022-05-29] MEDS: NICOTINE 21 MG PATCH 1 PATCH TRANSDERMA (10:12)
[2022-05-29] MEDS: ACETAMINOPHEN 500 MG TABLET 1000 MG PO ×3 (10:12→20:01)
[2022-05-29] MEDS: MEMANTINE HCL 10 MG TABLET PO ×2 (10:12→15:44)
[2022-05-29] MEDS: AMLODIPINE 10 MG TABLET PO (10:12)
[2022-05-29] MEDS: DOCUSATE SODIUM 100 MG CAPSULE PO ×2 (10:12→15:43)
[2022-05-29] MEDS: DULOXETINE 30 MG CAPSULE DR 90 MG PO (10:12)
[2022-05-29] MEDS: TROSPIUM CHLORIDE 20 MG TABLET PO ×2 (10:13→15:44)
[2022-05-29] MEDS: OMEPRAZOLE 20 MG CAPSULE DR PO (10:13)
[2022-05-29] MEDS: CANDESARTAN CILEXETIL 32 MG TABLET 16 MG PO (10:13)
[2022-05-29] MEDS: OXYCODONE 5 MG TABLET PO (10:13)
[2022-05-29] MEDS: SENNOSIDES 1 TAB TABLET 2 TAB PO ×2 (10:13→15:44)
--- NOTE | 2022-05-29 14:55 | PC.NURSE ---
New order RBVO: Prince Barrett ORTHOTIC/PROSTHETIC PRACTITIONER: Ativan 0.5mg Q shift DX: Anxiety x 14 days. Stop date 06/12/22.
[2022-05-29] MEDS: LORazepam 0.5 MG TABLET PO (17:19)
[2022-05-29] MEDS: ATORVASTATIN 10 MG TABLET PO (20:00)
[2022-05-29] MEDS: MELATONIN 5 MG TABLET PO (20:00)
[2022-05-29] MEDS: MIRTAZAPINE 15 MG TABLET 45 MG PO (20:00)
[2022-05-29] MEDS: TAMSULOSIN HCL 0.4 MG CAPSULE PO (20:01)
--- NOTE | 2022-05-29 21:21 | PC.NURSE ---
Ativan: Received orders for prn Ativan daily x 14 days. she was worked up and wanted to go home. Was able to get ahold of her daughter Ham to ask her to visit with her mother. Sandra said her daughter is coming tomorrow at 10am to take her home. She did receive a prn Ativan but feel her visiting with her daughter was helpful. Spoke to her daughter Jia and she didn't answer her phone and took the voice message and then calls her sister Ham because it goes better when she talks to mother. she said that her mother would still say I want to go home even when she was living with her. She agreed to the Ativan.
[2022-05-30] MEDS: CITALOPRAM HYDROBROMIDE 20 MG TABLET 10 MG PO (07:08)
[2022-05-30] MEDS: MEMANTINE HCL 10 MG TABLET PO ×2 (09:11→16:50)
[2022-05-30] MEDS: CANDESARTAN CILEXETIL 32 MG TABLET 16 MG PO (09:11)
[2022-05-30] MEDS: NICOTINE 21 MG PATCH 1 PATCH TRANSDERMA (09:11)
[2022-05-30] MEDS: ACETAMINOPHEN 500 MG TABLET 1000 MG PO ×3 (09:11→20:36)
[2022-05-30] MEDS: AMLODIPINE 10 MG TABLET PO (09:11)
[2022-05-30] MEDS: DULOXETINE 30 MG CAPSULE DR 90 MG PO (09:11)
[2022-05-30] MEDS: DOCUSATE SODIUM 100 MG CAPSULE PO ×2 (09:11→16:50)
[2022-05-30] MEDS: OMEPRAZOLE 20 MG CAPSULE DR PO (09:12)
[2022-05-30] MEDS: SENNOSIDES 1 TAB TABLET 2 TAB PO ×2 (09:12→16:50)
[2022-05-30] MEDS: TROSPIUM CHLORIDE 20 MG TABLET PO ×2 (09:12→16:50)
[2022-05-30] MEDS: OXYCODONE 5 MG TABLET PO (09:12)
[2022-05-30] MEDS: ATORVASTATIN 10 MG TABLET PO (20:37)
[2022-05-30] MEDS: MIRTAZAPINE 15 MG TABLET 45 MG PO (20:37)
[2022-05-30] MEDS: MELATONIN 5 MG TABLET PO (20:37)
[2022-05-30] MEDS: TAMSULOSIN HCL 0.4 MG CAPSULE PO (20:37)
[2022-05-31] MEDS: CITALOPRAM HYDROBROMIDE 20 MG TABLET 10 MG PO (08:09)
[2022-05-31] MEDS: NICOTINE 21 MG PATCH 1 PATCH TRANSDERMA (09:26)
[2022-05-31] MEDS: DULOXETINE 30 MG CAPSULE DR 90 MG PO (10:45)
[2022-05-31] MEDS: MEMANTINE HCL 10 MG TABLET PO ×2 (10:45→16:16)
[2022-05-31] MEDS: DOCUSATE SODIUM 100 MG CAPSULE PO (10:45)
[2022-05-31] MEDS: ACETAMINOPHEN 500 MG TABLET 1000 MG PO ×3 (10:45→20:05)
[2022-05-31] MEDS: OMEPRAZOLE 20 MG CAPSULE DR PO (10:45)
[2022-05-31] MEDS: SENNOSIDES 1 TAB TABLET 2 TAB PO (10:45)
[2022-05-31] MEDS: CANDESARTAN CILEXETIL 32 MG TABLET 16 MG PO (10:45)
[2022-05-31] MEDS: TROSPIUM CHLORIDE 20 MG TABLET PO ×2 (10:45→16:16)
[2022-05-31] MEDS: AMLODIPINE 10 MG TABLET PO (10:45)
[2022-05-31] MEDS: MIRTAZAPINE 15 MG TABLET 45 MG PO (20:07)
[2022-05-31] MEDS: MELATONIN 5 MG TABLET PO (20:07)
[2022-05-31] MEDS: TAMSULOSIN HCL 0.4 MG CAPSULE PO (20:07)
[2022-05-31] MEDS: ATORVASTATIN 10 MG TABLET PO (20:07)
--- NOTE | 2022-05-31 20:42 | PC.NURSE ---
Bowel: Resident has loose stools, laxatives held on PM shift, no further loose stool at this time.
--- NOTE | 2022-06-01 05:29 | PC.NURSE ---
No loose stools through the night. No other concerns.
[2022-06-01] MEDS: CITALOPRAM HYDROBROMIDE 20 MG TABLET 10 MG PO (08:44)
[2022-06-01 09:18] VITALS: TEMP 37.2; O2SAT 93
[2022-06-01] MEDS: ACETAMINOPHEN 500 MG TABLET 1000 MG PO ×3 (09:30→20:58)
[2022-06-01] MEDS: AMLODIPINE 10 MG TABLET PO (09:30)
[2022-06-01] MEDS: DOCUSATE SODIUM 100 MG CAPSULE PO ×2 (09:30→15:35)
[2022-06-01] MEDS: MEMANTINE HCL 10 MG TABLET PO ×2 (09:30→15:35)
[2022-06-01] MEDS: DULOXETINE 30 MG CAPSULE DR 90 MG PO (09:30)
[2022-06-01] MEDS: CANDESARTAN CILEXETIL 32 MG TABLET 16 MG PO (09:30)
[2022-06-01] MEDS: TROSPIUM CHLORIDE 20 MG TABLET PO ×2 (10:30→15:35)
[2022-06-01] MEDS: OMEPRAZOLE 20 MG CAPSULE DR PO (10:30)
[2022-06-01] MEDS: NICOTINE 21 MG PATCH 1 PATCH TRANSDERMA (10:30)
[2022-06-01] MEDS: SENNOSIDES 1 TAB TABLET 2 TAB PO ×2 (10:30→15:35)
--- NOTE | 2022-06-01 13:27 | PC.NURSE ---
Addendum entered by Lana Anguiano RN 06/01/22 19:26: 05/30/22: Residents daughter Jia gave consent for COVID testing until outbreak status is complete Original Note: COVID OUTBREAK TESTING: Resident provided verbal consent for outbreak COVID testing. Resident is currently asymptomatic. Resident/family will be notified only if resident is positive.
[2022-06-01 17:04] VITALS: TEMP 36.8; O2SAT 97
[2022-06-01 17:19] LABS: SARS PCR* Negative SARS-CoV-2 (Negative)
[2022-06-01] MEDS: TAMSULOSIN HCL 0.4 MG CAPSULE PO (19:22)
[2022-06-01] MEDS: MIRTAZAPINE 15 MG TABLET 45 MG PO (19:22)
[2022-06-01] MEDS: ATORVASTATIN 10 MG TABLET PO (19:22)
[2022-06-01] MEDS: MELATONIN 5 MG TABLET PO (19:22)
[2022-06-01 23:00] VITALS: TEMP 36.3; O2SAT 92
[2022-06-02 02:04] VITALS: TEMP 36.9; O2SAT 93
--- NOTE | 2022-06-02 02:06 | PC.NURSE ---
Covid symptom surveillance entered at 2300 on 06/01/22 by CAA is incorrect. Information was entered under wrong resident.
[2022-06-02] MEDS: AMLODIPINE 10 MG TABLET PO (10:52)
[2022-06-02] MEDS: ACETAMINOPHEN 500 MG TABLET 1000 MG PO ×3 (10:52→20:23)
[2022-06-02] MEDS: CITALOPRAM HYDROBROMIDE 20 MG TABLET 10 MG PO (10:52)
[2022-06-02] MEDS: NICOTINE 21 MG PATCH 1 PATCH TRANSDERMA (10:53)
[2022-06-02] MEDS: DULOXETINE 30 MG CAPSULE DR 90 MG PO (10:53)
[2022-06-02] MEDS: CANDESARTAN CILEXETIL 32 MG TABLET 16 MG PO (10:53)
[2022-06-02] MEDS: SENNOSIDES 1 TAB TABLET 2 TAB PO (10:53)
[2022-06-02] MEDS: MEMANTINE HCL 10 MG TABLET PO ×2 (10:53→15:54)
[2022-06-02] MEDS: DOCUSATE SODIUM 100 MG CAPSULE PO (10:53)
[2022-06-02] MEDS: TROSPIUM CHLORIDE 20 MG TABLET PO ×2 (10:53→15:57)
[2022-06-02] MEDS: OMEPRAZOLE 20 MG CAPSULE DR PO (10:53)
[2022-06-02 13:49] VITALS: TEMP 36.2; O2SAT 95
[2022-06-02 15:00] VITALS: TEMP 36.7; O2SAT 96
[2022-06-02] MEDS: TAMSULOSIN HCL 0.4 MG CAPSULE PO (19:13)
[2022-06-02] MEDS: MIRTAZAPINE 15 MG TABLET 45 MG PO (19:13)
[2022-06-02] MEDS: ATORVASTATIN 10 MG TABLET PO (19:13)
[2022-06-02] MEDS: MELATONIN 5 MG TABLET PO (19:13)
[2022-06-02 23:00] VITALS: TEMP 36.3; O2SAT 92
[2022-06-03] VITALS (8 sets, daily range): BP systolic 144–158; BP diastolic 68–81; PULSE 69–94; RESP 17–20; TEMP 36.4–37.1; O2SAT 94–95
--- NOTE | 2022-06-03 07:07 | PC.NURSE ---
FALL: Resident was found on the bathroom floor by WORK ORDER DETAILER at 0500. Was sitting on naked buttocks with legs extended out in front of body cleaning loose/liquid stool off toilet and floor. States that she had an accident all over and was bent over trying to clean it up and got tired so she had to sit down. Did not fall. Vital signs obtained and documented. Will update daughter. Note left in ADVICE LINE RN book. Intervention initiated to monitor vital signs Q4 hours x24. Will email ART COORDINATOR requesting to place bed alarm at night as intervention.
[2022-06-03] MEDS: LOPERAMIDE HCL 2 MG CAPSULE PO (09:28)
--- NOTE | 2022-06-03 10:35 | PC.NURSE ---
Fall F/u for 0900: Resident in bed awake, resting comfortably. Denies pain. Hand grasps strong. MANDO.
--- NOTE | 2022-06-03 10:52 | PC.NURSE ---
Family Update: DaughterJia updated of status resident on the floor. No injury. Daughter said resident called & told her of the incident. Per daughter resident is so embarrassed other people cleaning her as she is not used to this.
[2022-06-03] MEDS: ACETAMINOPHEN 500 MG TABLET 1000 MG PO ×3 (11:57→20:01)
[2022-06-03] MEDS: AMLODIPINE 10 MG TABLET PO (11:58)
[2022-06-03] MEDS: CITALOPRAM HYDROBROMIDE 20 MG TABLET 10 MG PO (11:58)
[2022-06-03] MEDS: CANDESARTAN CILEXETIL 32 MG TABLET 16 MG PO (11:58)
[2022-06-03] MEDS: DULOXETINE 30 MG CAPSULE DR 90 MG PO (11:59)
[2022-06-03] MEDS: NICOTINE 21 MG PATCH 1 PATCH TRANSDERMA (12:00)
[2022-06-03] MEDS: MEMANTINE HCL 10 MG TABLET PO ×2 (12:00→16:31)
[2022-06-03] MEDS: OMEPRAZOLE 20 MG CAPSULE DR PO (12:01)
[2022-06-03] MEDS: TROSPIUM CHLORIDE 20 MG TABLET PO ×2 (12:02→16:31)
[2022-06-03] MEDS: LORazepam 0.5 MG TABLET PO (18:28)
[2022-06-03] MEDS: MIRTAZAPINE 15 MG TABLET 45 MG PO (20:01)
[2022-06-03] MEDS: MELATONIN 5 MG TABLET PO (20:01)
[2022-06-03] MEDS: ATORVASTATIN 10 MG TABLET PO (20:01)
[2022-06-03] MEDS: TAMSULOSIN HCL 0.4 MG CAPSULE PO (20:01)
--- NOTE | 2022-06-03 20:43 | PC.NURSE ---
EMESIS: Resident had small emesis around 1500. Was given saadia yanira and provided relief. No further emesis this shift.
--- NOTE | 2022-06-03 20:53 | PC.NURSE ---
BEHAVIORS: Resident appeared anxious and was propelling w/c in hallway. Stating, I've got to get outside and I've got to get out of here! Attempting to exit through main door. Yelling/cursing at kitchen staff coming through door with food cart. Stated, Ely lara, is this the exit? Answer me! Staff approached to redirect resident and told her about the weather outside and mealtime approaching. Resident refused nourishments and supper this evening. Was given Ativan PRN @ 18:38 and was slightly effective. Resident appeared calm and comfortable in room for about an hour. Was toileted. Snacks offered. Then became restless again and set bed alarm off. staffing mgr sat 1:1 with resident in dining room after supper to watch a movie and to change environment. Intervention only effective for 5 minutes. Began wheeling down to other hallway's emergency exit, stating, I don't need this wheelchair anymore and I don't want it. Sat near nurse's cart in hallway for 10 minutes and then asked where her room was. Staff assisted for HS cares but resident resistive. In bed resting at this time.
--- NOTE | 2022-06-03 21:51 | PC.NURSE ---
Fall F/U: Resident's VSS and neuro checks complete. PERRL. ROM WNL. Denies any pain or discomfort.
[2022-06-04 01:00] VITALS: BP 151/77; RESP 18; TEMP 36.9; O2SAT 94
--- NOTE | 2022-06-04 01:13 | PC.NURSE ---
FALL FOLLOW-UP: Vital signs stable. Neuros intact. Hand grasps strong and equal bilaterally. Orientation at baseline. ROM to all extremities at baseline. Denies any pain. Denies any nausea, blurred vision, or headache.
--- NOTE | 2022-06-04 03:26 | PC.NURSE ---
WEEKLY CHARTING - WEEK 1: Vital signs reviewed. Consistently elevated BP values noted. In HAND STRIPPER book for review. Temporary and admission care plan reviewed - updated to reflect change in alarm status. Denies pain when asked. Receives scheduled ES acetaminophen TID for pain management. Requires assist of 1 for dressing, grooming, bathing, and oral care. Is resistive to cares at times. Appetite is variable. Refuses meals at times. Able to eat independently after set-up. Receives a regular diet.
[2022-06-04 05:00] VITALS: BP 154/71; PULSE 82; RESP 20; TEMP 36.8; O2SAT 93
--- NOTE | 2022-06-04 05:45 | PC.NURSE ---
FALL FOLLOW-UP: Vital signs stable. Neuros intact. Hand grasps equal bilaterally. Orientation at baseline. ROM to all extremities at baseline. Denies any pain. Denies any nausea, blurred vision, or headache.
[2022-06-04] MEDS: AMLODIPINE 10 MG TABLET PO (09:55)
[2022-06-04] MEDS: CITALOPRAM HYDROBROMIDE 20 MG TABLET 10 MG PO (09:55)
[2022-06-04] MEDS: ACETAMINOPHEN 500 MG TABLET 1000 MG PO ×3 (09:55→21:02)
[2022-06-04] MEDS: CANDESARTAN CILEXETIL 32 MG TABLET 16 MG PO (09:55)
[2022-06-04] MEDS: DULOXETINE 30 MG CAPSULE DR 90 MG PO (09:56)
[2022-06-04] MEDS: MEMANTINE HCL 10 MG TABLET PO ×2 (09:56→16:07)
[2022-06-04] MEDS: NICOTINE 21 MG PATCH 1 PATCH TRANSDERMA (09:56)
[2022-06-04] MEDS: TROSPIUM CHLORIDE 20 MG TABLET PO ×2 (09:56→16:07)
[2022-06-04] MEDS: LORazepam 0.5 MG TABLET PO (09:56)
[2022-06-04] MEDS: OMEPRAZOLE 20 MG CAPSULE DR PO (09:56)
--- NOTE | 2022-06-04 12:20 | PC.NURSE ---
Order: UNDERWRITING INTERN here updated resident having loose BM's. Change Docusate Sodium 100mg BID to BID PRN.
[2022-06-04 13:31] VITALS: TEMP 36.4; O2SAT 96
[2022-06-04 15:00] VITALS: TEMP 36.7; O2SAT 95
--- NOTE | 2022-06-04 15:47 | PC.SOCIAL ---
Called and spoke with resident's son Valentin @ [phone]. Updated him that resident has started to have an increase in behaviors wanting to leave, call 911, entering other resident's room and she is difficult to re-direct. Valentin was open to sending resident's information to any local memory care facility as he is in [place] and has not idea what is in the area. Left messages again for [facility] and [facility]. This worker left messages when resident was admitted at these facilities to add resident to their wait list with no return calls.
[2022-06-04] MEDS: MIRTAZAPINE 15 MG TABLET 45 MG PO (19:35)
[2022-06-04] MEDS: TAMSULOSIN HCL 0.4 MG CAPSULE PO (19:35)
[2022-06-04] MEDS: MELATONIN 5 MG TABLET PO (19:35)
[2022-06-04] MEDS: ATORVASTATIN 10 MG TABLET PO (19:35)
--- NOTE | 2022-06-04 20:32 | PC.NURSE ---
Week #1: Vital signs, and Baseline Care Plan reviewed. No changes and nothing added to temporary care plan at this time. Resident needs extensive one assist with dressing, grooming, and bathing. Encourage to participate as able. Resident is independent with eating and performing oral care task - staff assist as needed. On regular diet at this time, and no problem with chewing or swallowing noted. Pain: Resident is able to verbalize pain. Receives scheduled Acetaminophen 1000mg TID.
[2022-06-04 23:00] VITALS: TEMP 36.4; O2SAT 94
[2022-06-05] MEDS: ACETAMINOPHEN 500 MG TABLET 1000 MG PO ×3 (09:38→20:42)
[2022-06-05] MEDS: AMLODIPINE 10 MG TABLET PO (09:39)
[2022-06-05] MEDS: CANDESARTAN CILEXETIL 32 MG TABLET 16 MG PO (09:39)
[2022-06-05] MEDS: DULOXETINE 30 MG CAPSULE DR 90 MG PO (09:40)
[2022-06-05] MEDS: CITALOPRAM HYDROBROMIDE 20 MG TABLET 10 MG PO (09:40)
[2022-06-05] MEDS: MEMANTINE HCL 10 MG TABLET PO ×2 (09:40→16:20)
[2022-06-05] MEDS: TROSPIUM CHLORIDE 20 MG TABLET PO ×2 (09:41→16:20)
[2022-06-05] MEDS: OMEPRAZOLE 20 MG CAPSULE DR PO (09:41)
[2022-06-05 10:38] VITALS: TEMP 36.6; O2SAT 96
[2022-06-05] MEDS: NICOTINE 21 MG PATCH 1 PATCH TRANSDERMA (10:42)
--- NOTE | 2022-06-05 12:57 | PC.NURSE ---
Status/Order: Dr. Vazquez here updated of increased distress, aggressive behaviors. Order: Oxycodone 5 mg daily & Q4H PRN for pain/distress. Update in one week or sooner with behaviors/pain control/sedation.
[2022-06-05 15:00] VITALS: TEMP 37.1; O2SAT 95
[2022-06-05] MEDS: SENNOSIDES 1 TAB TABLET 2 TAB PO (16:20)
[2022-06-05] MEDS: TAMSULOSIN HCL 0.4 MG CAPSULE PO (20:42)
[2022-06-05] MEDS: MIRTAZAPINE 15 MG TABLET 45 MG PO (20:42)
[2022-06-05] MEDS: ATORVASTATIN 10 MG TABLET PO (20:42)
[2022-06-05] MEDS: MELATONIN 5 MG TABLET PO (20:42)
--- NOTE | 2022-06-05 22:16 | PC.SOCIAL ---
Received a phone call from Domingo Harris at [facility] regarding openings in the memory care unit for resident. Provided an update on the current situation. Domingo informed that resident would have to show proof that resident can private pay for at least 6 months. Domingo informed that there are openings in the memory care. Faxed resident's referral to [phone]. Social work will follow up as necessary.
[2022-06-05 23:00] VITALS: TEMP 36.3; O2SAT 96
[2022-06-06] MEDS: OXYCODONE 5 MG TABLET PO (07:49)
[2022-06-06] MEDS: ACETAMINOPHEN 500 MG TABLET 1000 MG PO ×3 (10:23→20:16)
[2022-06-06] MEDS: AMLODIPINE 10 MG TABLET PO (10:23)
[2022-06-06] MEDS: CANDESARTAN CILEXETIL 32 MG TABLET 16 MG PO (10:24)
[2022-06-06] MEDS: DULOXETINE 30 MG CAPSULE DR 90 MG PO (10:24)
[2022-06-06] MEDS: NICOTINE 21 MG PATCH 1 PATCH TRANSDERMA (10:24)
[2022-06-06] MEDS: MEMANTINE HCL 10 MG TABLET PO ×2 (10:24→16:24)
[2022-06-06] MEDS: CITALOPRAM HYDROBROMIDE 20 MG TABLET 10 MG PO (10:24)
[2022-06-06] MEDS: TROSPIUM CHLORIDE 20 MG TABLET PO ×2 (10:28→16:24)
[2022-06-06] MEDS: OMEPRAZOLE 20 MG CAPSULE DR PO (10:28)
[2022-06-06 10:40] VITALS: TEMP 36.2; O2SAT 96
[2022-06-06 15:00] VITALS: TEMP 36.8; O2SAT 98
[2022-06-06] MEDS: SENNOSIDES 1 TAB TABLET 2 TAB PO (16:24)
[2022-06-06] MEDS: MIRTAZAPINE 15 MG TABLET 45 MG PO (20:16)
[2022-06-06] MEDS: MELATONIN 5 MG TABLET PO (20:16)
[2022-06-06] MEDS: TAMSULOSIN HCL 0.4 MG CAPSULE PO (20:16)
[2022-06-06] MEDS: ATORVASTATIN 10 MG TABLET PO (20:16)
[2022-06-06 23:00] VITALS: TEMP 36.7; O2SAT 98
[2022-06-07] MEDS: OXYCODONE 5 MG TABLET PO (07:39)
[2022-06-07] MEDS: DULOXETINE 30 MG CAPSULE DR 90 MG PO (10:54)
[2022-06-07] MEDS: CANDESARTAN CILEXETIL 32 MG TABLET 16 MG PO (10:54)
[2022-06-07] MEDS: AMLODIPINE 10 MG TABLET PO (10:54)
[2022-06-07] MEDS: MEMANTINE HCL 10 MG TABLET PO ×2 (10:54→15:36)
[2022-06-07] MEDS: SENNOSIDES 1 TAB TABLET 2 TAB PO ×2 (10:54→15:36)
[2022-06-07] MEDS: ACETAMINOPHEN 500 MG TABLET 1000 MG PO ×3 (10:54→20:06)
[2022-06-07] MEDS: NICOTINE 21 MG PATCH 1 PATCH TRANSDERMA (10:54)
[2022-06-07] MEDS: OMEPRAZOLE 20 MG CAPSULE DR PO (10:54)
[2022-06-07] MEDS: CITALOPRAM HYDROBROMIDE 20 MG TABLET 10 MG PO (10:54)
[2022-06-07] MEDS: TROSPIUM CHLORIDE 20 MG TABLET PO ×2 (10:54→15:36)
[2022-06-07 12:53] VITALS: TEMP 36.2; O2SAT 96
[2022-06-07 15:00] VITALS: TEMP 37.2; O2SAT 94
[2022-06-07] MEDS: MELATONIN 5 MG TABLET PO (20:05)
[2022-06-07] MEDS: MIRTAZAPINE 15 MG TABLET 45 MG PO (20:05)
[2022-06-07] MEDS: ATORVASTATIN 10 MG TABLET PO (20:05)
[2022-06-07] MEDS: TAMSULOSIN HCL 0.4 MG CAPSULE PO (20:06)
[2022-06-07 23:00] VITALS: TEMP 36.4; O2SAT 95
[2022-06-08] MEDS: OXYCODONE 5 MG TABLET PO (07:57)
[2022-06-08] MEDS: TROSPIUM CHLORIDE 20 MG TABLET PO ×2 (10:48→15:41)
[2022-06-08] MEDS: MEMANTINE HCL 10 MG TABLET PO ×2 (10:48→15:41)
[2022-06-08] MEDS: AMLODIPINE 10 MG TABLET PO (10:48)
[2022-06-08] MEDS: SENNOSIDES 1 TAB TABLET 2 TAB PO ×2 (10:48→15:41)
[2022-06-08] MEDS: CITALOPRAM HYDROBROMIDE 20 MG TABLET 10 MG PO (10:48)
[2022-06-08] MEDS: NICOTINE 21 MG PATCH 1 PATCH TRANSDERMA (10:48)
[2022-06-08] MEDS: CANDESARTAN CILEXETIL 32 MG TABLET 16 MG PO (10:48)
[2022-06-08] MEDS: DULOXETINE 30 MG CAPSULE DR 90 MG PO (10:48)
[2022-06-08] MEDS: OMEPRAZOLE 20 MG CAPSULE DR PO (10:48)
[2022-06-08] MEDS: ACETAMINOPHEN 500 MG TABLET 1000 MG PO ×3 (10:48→19:23)
[2022-06-08 13:24] VITALS: TEMP 36.4; O2SAT 96
[2022-06-08 18:07] LABS: SARS PCR* Negative SARS-CoV-2 (Negative)
[2022-06-08] MEDS: MIRTAZAPINE 15 MG TABLET 45 MG PO (19:26)
[2022-06-08] MEDS: TAMSULOSIN HCL 0.4 MG CAPSULE PO (19:26)
[2022-06-08] MEDS: ATORVASTATIN 10 MG TABLET PO (19:26)
[2022-06-08] MEDS: MELATONIN 5 MG TABLET PO (19:26)
[2022-06-08 21:10] VITALS: TEMP 36.6; O2SAT 94
[2022-06-08 23:00] VITALS: TEMP 36.4; O2SAT 92
[2022-06-09] MEDS: OXYCODONE 5 MG TABLET PO (08:39)
[2022-06-09] MEDS: NICOTINE 21 MG PATCH 1 PATCH TRANSDERMA (09:56)
[2022-06-09] MEDS: AMLODIPINE 10 MG TABLET PO (09:56)
[2022-06-09] MEDS: CANDESARTAN CILEXETIL 32 MG TABLET 16 MG PO (09:56)
[2022-06-09] MEDS: MEMANTINE HCL 10 MG TABLET PO ×2 (09:56→16:12)
[2022-06-09] MEDS: DULOXETINE 30 MG CAPSULE DR 90 MG PO (09:56)
[2022-06-09] MEDS: CITALOPRAM HYDROBROMIDE 20 MG TABLET 10 MG PO (09:56)
[2022-06-09] MEDS: ACETAMINOPHEN 500 MG TABLET 1000 MG PO ×3 (09:56→20:04)
[2022-06-09] MEDS: SENNOSIDES 1 TAB TABLET 2 TAB PO ×2 (09:57→16:12)
[2022-06-09] MEDS: TROSPIUM CHLORIDE 20 MG TABLET PO ×2 (09:57→16:12)
[2022-06-09] MEDS: OMEPRAZOLE 20 MG CAPSULE DR PO (09:57)
[2022-06-09 12:15] VITALS: TEMP 36.6; O2SAT 94
[2022-06-09 15:00] VITALS: TEMP 37.1; O2SAT 94
[2022-06-09] MEDS: TAMSULOSIN HCL 0.4 MG CAPSULE PO (19:33)
[2022-06-09] MEDS: MIRTAZAPINE 15 MG TABLET 45 MG PO (19:33)
[2022-06-09] MEDS: MELATONIN 5 MG TABLET PO (19:33)
[2022-06-09] MEDS: ATORVASTATIN 10 MG TABLET PO (19:33)
[2022-06-09 23:00] VITALS: TEMP 36.6; O2SAT 93
[2022-06-10] MEDS: OXYCODONE 5 MG TABLET PO (08:30)
[2022-06-10] MEDS: ACETAMINOPHEN 500 MG TABLET 1000 MG PO ×3 (10:16→20:01)
[2022-06-10] MEDS: AMLODIPINE 10 MG TABLET PO (10:19)
[2022-06-10] MEDS: OMEPRAZOLE 20 MG CAPSULE DR PO (10:21)
[2022-06-10] MEDS: CITALOPRAM HYDROBROMIDE 20 MG TABLET 10 MG PO (10:21)
[2022-06-10] MEDS: CANDESARTAN CILEXETIL 32 MG TABLET 16 MG PO (10:21)
[2022-06-10] MEDS: DULOXETINE 30 MG CAPSULE DR 90 MG PO (10:21)
[2022-06-10] MEDS: MEMANTINE HCL 10 MG TABLET PO ×2 (10:21→16:49)
[2022-06-10] MEDS: TROSPIUM CHLORIDE 20 MG TABLET PO ×2 (10:21→16:49)
[2022-06-10] MEDS: SENNOSIDES 1 TAB TABLET 2 TAB PO ×2 (10:21→16:49)
[2022-06-10] MEDS: NICOTINE 21 MG PATCH 1 PATCH TRANSDERMA (11:38)
--- NOTE | 2022-06-10 13:14 | PC.SOCIAL ---
Addendum entered by SHANNAN Pimentel 06/10/22 13:17: Updated resident's son Valentin he will be getting an e-maiil or call from [facility]. Original Note: Spoke with Marian at [facility] and they received resident's referral and have openings. Faxed requested nursing notes. If accepted will have a bed early next week.
[2022-06-10 14:47] VITALS: BP 148/80; PULSE 88; RESP 22; TEMP 36.4; TEMP 36.6; O2SAT 94; O2SAT 95; BMI 21.2
[2022-06-10 15:00] VITALS: TEMP 37.1; O2SAT 95
[2022-06-10] MEDS: MIRTAZAPINE 15 MG TABLET 45 MG PO (20:01)
[2022-06-10] MEDS: ATORVASTATIN 10 MG TABLET PO (20:01)
[2022-06-10] MEDS: TAMSULOSIN HCL 0.4 MG CAPSULE PO (20:01)
[2022-06-10] MEDS: MELATONIN 5 MG TABLET PO (20:01)
[2022-06-10 23:00] VITALS: TEMP 36.4; O2SAT 92
--- NOTE | 2022-06-11 02:35 | PC.NURSE ---
WEEKLY CHARTING - WEEK 2: Vital signs reviewed. Comprehensive care plan reviewed - no changes. Requires limited assist of 1 with transfers, ambulation, bed mobility, and w/c mobility. Uses FWW for ambulation. Will propel w/c independently at times. Is at high risk for falls per last fall risk assessment. Fall interventions include: call light in reach, falling star magnet, bed alarm at night, gripper socks or shoes, hourly safety checks, and bed in lowest position. Is ambulated by staff BID.
--- NOTE | 2022-06-11 07:30 | PC.NURSE ---
Week #2-Mobility: Comprehensive care plan reviewed, no changes made. Nothing added to temporary care plan. Resident needs one assist, gait belt and walker with transfers/ambulation. Follow with w/c when walking. Occasionally will self transfer and ambulate. Is able to wheel self. Staff assist to destinations. Encourage participation with turning and repositioning. Has a bed and chair alarm during the night. Vital signs reviewed with occasional elevated BP's. Continue weekly VS monitoring. Fall: Had a fall on 06/03/22, found in bathroom floor. Bed and chair alarm during the night. Is ahigh fall risk according to assessment done on 05/25/22.
[2022-06-11] MEDS: OXYCODONE 5 MG TABLET PO (08:01)
[2022-06-11] MEDS: AMLODIPINE 10 MG TABLET PO (09:36)
[2022-06-11] MEDS: SENNOSIDES 1 TAB TABLET 2 TAB PO ×2 (09:36→15:14)
[2022-06-11] MEDS: CITALOPRAM HYDROBROMIDE 20 MG TABLET 10 MG PO (09:36)
[2022-06-11] MEDS: OMEPRAZOLE 20 MG CAPSULE DR PO (09:36)
[2022-06-11] MEDS: TROSPIUM CHLORIDE 20 MG TABLET PO ×2 (09:36→15:14)
[2022-06-11] MEDS: CANDESARTAN CILEXETIL 32 MG TABLET 16 MG PO (09:36)
[2022-06-11] MEDS: DULOXETINE 30 MG CAPSULE DR 90 MG PO (09:36)
[2022-06-11] MEDS: MEMANTINE HCL 10 MG TABLET PO ×2 (09:36→15:14)
[2022-06-11] MEDS: NICOTINE 21 MG PATCH 1 PATCH TRANSDERMA (09:36)
[2022-06-11] MEDS: ACETAMINOPHEN 500 MG TABLET 1000 MG PO ×3 (09:36→20:03)
[2022-06-11 10:07] VITALS: TEMP 36.2; O2SAT 96
[2022-06-11 15:00] VITALS: TEMP 36.7; O2SAT 95
[2022-06-11] MEDS: TAMSULOSIN HCL 0.4 MG CAPSULE PO (20:03)
[2022-06-11] MEDS: MIRTAZAPINE 15 MG TABLET 45 MG PO (20:03)
[2022-06-11] MEDS: MELATONIN 5 MG TABLET PO (20:03)
[2022-06-11] MEDS: ATORVASTATIN 10 MG TABLET PO (20:03)
[2022-06-11 23:00] VITALS: TEMP 36.6; O2SAT 92
[2022-06-12] MEDS: OXYCODONE 5 MG TABLET PO (09:00)
[2022-06-12] MEDS: AMLODIPINE 10 MG TABLET PO (09:23)
[2022-06-12] MEDS: OMEPRAZOLE 20 MG CAPSULE DR PO (09:23)
[2022-06-12] MEDS: NICOTINE 21 MG PATCH 1 PATCH TRANSDERMA (09:23)
[2022-06-12] MEDS: MEMANTINE HCL 10 MG TABLET PO ×2 (09:23→15:57)
[2022-06-12] MEDS: CITALOPRAM HYDROBROMIDE 20 MG TABLET 10 MG PO (09:23)
[2022-06-12] MEDS: ACETAMINOPHEN 500 MG TABLET 1000 MG PO ×3 (09:23→20:09)
[2022-06-12] MEDS: TROSPIUM CHLORIDE 20 MG TABLET PO ×2 (09:23→15:57)
[2022-06-12] MEDS: SENNOSIDES 1 TAB TABLET 2 TAB PO ×2 (09:23→15:57)
[2022-06-12] MEDS: CANDESARTAN CILEXETIL 32 MG TABLET 16 MG PO (09:23)
[2022-06-12] MEDS: DULOXETINE 30 MG CAPSULE DR 90 MG PO (09:23)
[2022-06-12 13:44] VITALS: TEMP 36.4; O2SAT 94
--- NOTE | 2022-06-12 13:58 | PC.NURSE ---
Status: Dr. Vazquez updated resident is doing well with Oxycodone.
[2022-06-12 15:00] VITALS: TEMP 36.8; O2SAT 95
[2022-06-12] MEDS: MELATONIN 5 MG TABLET PO (19:49)
[2022-06-12] MEDS: TAMSULOSIN HCL 0.4 MG CAPSULE PO (19:49)
[2022-06-12] MEDS: MIRTAZAPINE 15 MG TABLET 45 MG PO (19:49)
[2022-06-12] MEDS: ATORVASTATIN 10 MG TABLET PO (19:49)
[2022-06-12 23:00] VITALS: TEMP 36.5; O2SAT 93
[2022-06-13 07:00] VITALS: TEMP 37.2; O2SAT 95
[2022-06-13] MEDS: OXYCODONE 5 MG TABLET PO (08:07)
[2022-06-13] MEDS: AMLODIPINE 10 MG TABLET PO (09:18)
[2022-06-13] MEDS: MEMANTINE HCL 10 MG TABLET PO ×2 (09:19→15:51)
[2022-06-13] MEDS: CITALOPRAM HYDROBROMIDE 20 MG TABLET 10 MG PO (09:19)
[2022-06-13] MEDS: DULOXETINE 30 MG CAPSULE DR 90 MG PO (09:19)
[2022-06-13] MEDS: OMEPRAZOLE 20 MG CAPSULE DR PO (09:19)
[2022-06-13] MEDS: TROSPIUM CHLORIDE 20 MG TABLET PO ×2 (09:19→15:51)
[2022-06-13] MEDS: CANDESARTAN CILEXETIL 32 MG TABLET 16 MG PO (09:19)
[2022-06-13] MEDS: NICOTINE 21 MG PATCH 1 PATCH TRANSDERMA (09:19)
[2022-06-13] MEDS: SENNOSIDES 1 TAB TABLET 2 TAB PO ×2 (09:19→15:51)
[2022-06-13] MEDS: ACETAMINOPHEN 500 MG TABLET 1000 MG PO ×3 (09:45→20:08)
[2022-06-13 15:00] VITALS: TEMP 36.9
[2022-06-13] MEDS: ATORVASTATIN 10 MG TABLET PO (19:46)
[2022-06-13] MEDS: MELATONIN 5 MG TABLET PO (19:46)
[2022-06-13] MEDS: TAMSULOSIN HCL 0.4 MG CAPSULE PO (19:46)
[2022-06-13] MEDS: MIRTAZAPINE 15 MG TABLET 45 MG PO (19:46)
[2022-06-13 23:00] VITALS: TEMP 36.7; O2SAT 92
[2022-06-14 07:00] VITALS: TEMP 37.2; O2SAT 95
[2022-06-14] MEDS: OXYCODONE 5 MG TABLET PO (07:28)
[2022-06-14] MEDS: AMLODIPINE 10 MG TABLET PO (09:39)
[2022-06-14] MEDS: ACETAMINOPHEN 500 MG TABLET 1000 MG PO ×3 (09:39→21:12)
[2022-06-14] MEDS: CANDESARTAN CILEXETIL 32 MG TABLET 16 MG PO (09:39)
[2022-06-14] MEDS: CITALOPRAM HYDROBROMIDE 20 MG TABLET 10 MG PO (09:39)
[2022-06-14] MEDS: SENNOSIDES 1 TAB TABLET 2 TAB PO ×2 (09:40→15:31)
[2022-06-14] MEDS: OMEPRAZOLE 20 MG CAPSULE DR PO (09:40)
[2022-06-14] MEDS: DULOXETINE 30 MG CAPSULE DR 90 MG PO (09:40)
[2022-06-14] MEDS: MEMANTINE HCL 10 MG TABLET PO ×2 (09:40→15:30)
[2022-06-14] MEDS: TROSPIUM CHLORIDE 20 MG TABLET PO ×2 (09:40→15:31)
[2022-06-14] MEDS: NICOTINE 21 MG PATCH 1 PATCH TRANSDERMA (09:50)
[2022-06-14 15:00] VITALS: TEMP 37.2; O2SAT 94
[2022-06-14] MEDS: TAMSULOSIN HCL 0.4 MG CAPSULE PO (19:35)
[2022-06-14] MEDS: MELATONIN 5 MG TABLET PO (19:35)
[2022-06-14] MEDS: MIRTAZAPINE 15 MG TABLET 45 MG PO (19:35)
[2022-06-14] MEDS: ATORVASTATIN 10 MG TABLET PO (19:35)
[2022-06-14 23:00] VITALS: TEMP 36.6; O2SAT 92
[2022-06-15] MEDS: OXYCODONE 5 MG TABLET PO (07:40)
[2022-06-15] MEDS: ACETAMINOPHEN 500 MG TABLET 1000 MG PO ×3 (09:50→20:08)
[2022-06-15] MEDS: NICOTINE 21 MG PATCH 1 PATCH TRANSDERMA (09:50)
[2022-06-15] MEDS: AMLODIPINE 10 MG TABLET PO (09:50)
[2022-06-15] MEDS: CITALOPRAM HYDROBROMIDE 20 MG TABLET 10 MG PO (09:50)
[2022-06-15] MEDS: MEMANTINE HCL 10 MG TABLET PO ×2 (09:50→15:41)
[2022-06-15] MEDS: DULOXETINE 30 MG CAPSULE DR 90 MG PO (09:50)
[2022-06-15] MEDS: CANDESARTAN CILEXETIL 32 MG TABLET 16 MG PO (09:50)
[2022-06-15] MEDS: SENNOSIDES 1 TAB TABLET 2 TAB PO ×2 (09:51→15:41)
[2022-06-15] MEDS: TROSPIUM CHLORIDE 20 MG TABLET PO ×2 (09:51→15:41)
[2022-06-15] MEDS: OMEPRAZOLE 20 MG CAPSULE DR PO (09:51)
[2022-06-15 10:29] VITALS: TEMP 36.7; O2SAT 94
--- NOTE | 2022-06-15 11:57 | PC.NURSE ---
COVID OUTBREAK TESTING (Antigen): Resident provided verbal consent for outbreak COVID testing. Resident is currently asymptomatic.? Resident/family will be notified only if resident is positive.
[2022-06-15 13:34] LABS: SARS PCR* Negative SARS-CoV-2 (Negative)
[2022-06-15] MEDS: ATORVASTATIN 10 MG TABLET PO (20:07)
[2022-06-15] MEDS: MELATONIN 5 MG TABLET PO (20:08)
[2022-06-15] MEDS: MIRTAZAPINE 15 MG TABLET 45 MG PO (20:08)
[2022-06-15] MEDS: TAMSULOSIN HCL 0.4 MG CAPSULE PO (20:08)
[2022-06-15 21:31] VITALS: TEMP 37.2; O2SAT 95
[2022-06-15 23:00] VITALS: TEMP 36.8; O2SAT 93
[2022-06-16] MEDS: OXYCODONE 5 MG TABLET PO (08:18)
[2022-06-16] MEDS: MEMANTINE HCL 10 MG TABLET PO ×2 (10:25→15:45)
[2022-06-16] MEDS: OMEPRAZOLE 20 MG CAPSULE DR PO (10:25)
[2022-06-16] MEDS: TROSPIUM CHLORIDE 20 MG TABLET PO ×2 (10:25→15:45)
[2022-06-16] MEDS: ACETAMINOPHEN 500 MG TABLET 1000 MG PO ×3 (10:25→19:36)
[2022-06-16] MEDS: AMLODIPINE 10 MG TABLET PO (10:25)
[2022-06-16] MEDS: CITALOPRAM HYDROBROMIDE 20 MG TABLET 10 MG PO (10:25)
[2022-06-16] MEDS: DULOXETINE 30 MG CAPSULE DR 90 MG PO (10:25)
[2022-06-16] MEDS: CANDESARTAN CILEXETIL 32 MG TABLET 16 MG PO (10:25)
[2022-06-16] MEDS: NICOTINE 21 MG PATCH 1 PATCH TRANSDERMA (10:25)
[2022-06-16] MEDS: SENNOSIDES 1 TAB TABLET 2 TAB PO ×2 (10:25→15:45)
[2022-06-16 10:49] VITALS: TEMP 36.9; O2SAT 94
[2022-06-16] MEDS: MELATONIN 5 MG TABLET PO (19:38)
[2022-06-16] MEDS: MIRTAZAPINE 15 MG TABLET 45 MG PO (19:38)
[2022-06-16] MEDS: ATORVASTATIN 10 MG TABLET PO (19:38)
[2022-06-16] MEDS: TAMSULOSIN HCL 0.4 MG CAPSULE PO (19:38)
[2022-06-16 21:09] VITALS: TEMP 37.2; O2SAT 96
[2022-06-16 23:00] VITALS: TEMP 36.7; O2SAT 93
[2022-06-17 07:00] VITALS: BP 134/68; PULSE 86; RESP 18; TEMP 37.2; O2SAT 97; BMI 21.4
[2022-06-17] MEDS: OXYCODONE 5 MG TABLET PO (08:39)
--- NOTE | 2022-06-17 08:59 | PC.PHA ---
MEDICATION REVIEW MEDICATION MONITORING: Mirtazapine 45 mg po hs, duloxetine 90 mg daily IRREGULARITY/COMMENTS: Patient still adjusting to her new environment, however the usual target dose on duloxetine in the elderly is 60 mg/day. SUGGESTED COURSE OF ACTION: Does patient have strong past history for current duloxetine dose? Depending on her situation she may benefit from GDR of duloxetine from 90 mg to 60 mg daily.
[2022-06-17] MEDS: AMLODIPINE 10 MG TABLET PO (10:43)
[2022-06-17] MEDS: CANDESARTAN CILEXETIL 32 MG TABLET 16 MG PO (10:43)
[2022-06-17] MEDS: CITALOPRAM HYDROBROMIDE 20 MG TABLET 10 MG PO (10:43)
[2022-06-17] MEDS: DULOXETINE 30 MG CAPSULE DR 90 MG PO (10:43)
[2022-06-17] MEDS: ACETAMINOPHEN 500 MG TABLET 1000 MG PO ×3 (10:43→20:26)
[2022-06-17] MEDS: NICOTINE 21 MG PATCH 1 PATCH TRANSDERMA (10:44)
[2022-06-17] MEDS: SENNOSIDES 1 TAB TABLET 2 TAB PO ×2 (10:44→15:01)
[2022-06-17] MEDS: OMEPRAZOLE 20 MG CAPSULE DR PO (10:44)
[2022-06-17] MEDS: MEMANTINE HCL 10 MG TABLET PO ×2 (10:44→15:01)
[2022-06-17] MEDS: TROSPIUM CHLORIDE 20 MG TABLET PO ×2 (10:44→15:02)
[2022-06-17 15:00] VITALS: TEMP 36.8; O2SAT 97
[2022-06-17] MEDS: TAMSULOSIN HCL 0.4 MG CAPSULE PO (20:26)
[2022-06-17] MEDS: MELATONIN 5 MG TABLET PO (20:26)
[2022-06-17] MEDS: ATORVASTATIN 10 MG TABLET PO (20:26)
[2022-06-17] MEDS: MIRTAZAPINE 15 MG TABLET 45 MG PO (20:26)
[2022-06-17 23:00] VITALS: TEMP 36.6; O2SAT 92
--- NOTE | 2022-06-18 04:21 | PC.NURSE ---
WEEKLY CHARTING - WEEK 3: Vital signs reviewed. Temporary and comprehensive care plan reviewed - no change. Documented rash on LLE with weekly skin assessment on 06/17. Resident reports it is always present. Is frequently incontinent of bowel and bladder with some control. Wears pull-up. Unable to use call light appropriately for toileting needs. Staff anticipate needs. Requires assist of 1 to check/change/toilet every 3 hours and PRN. Requires assist with pad management and hillary-cares.
[2022-06-18 07:00] VITALS: TEMP 36.8; O2SAT 95
[2022-06-18] MEDS: OXYCODONE 5 MG TABLET PO (08:45)
[2022-06-18] MEDS: OMEPRAZOLE 20 MG CAPSULE DR PO (10:05)
[2022-06-18] MEDS: CANDESARTAN CILEXETIL 32 MG TABLET 16 MG PO (10:05)
[2022-06-18] MEDS: SENNOSIDES 1 TAB TABLET 2 TAB PO ×2 (10:05→16:19)
[2022-06-18] MEDS: MEMANTINE HCL 10 MG TABLET PO ×2 (10:05→16:18)
[2022-06-18] MEDS: ACETAMINOPHEN 500 MG TABLET 1000 MG PO ×3 (10:05→20:27)
[2022-06-18] MEDS: DULOXETINE 30 MG CAPSULE DR 90 MG PO (10:05)
[2022-06-18] MEDS: CITALOPRAM HYDROBROMIDE 20 MG TABLET 10 MG PO (10:05)
[2022-06-18] MEDS: TROSPIUM CHLORIDE 20 MG TABLET PO ×2 (10:05→16:19)
[2022-06-18] MEDS: AMLODIPINE 10 MG TABLET PO (10:05)
[2022-06-18] MEDS: NICOTINE 21 MG PATCH 1 PATCH TRANSDERMA (10:10)
--- NOTE | 2022-06-18 11:40 | PC.NURSE ---
Week #3-Toileting: Comprehensive care plan reviewed, no changes made. Nothing added to temporary care plan. Resident has frequent bladder and bowel incontinence with some control. Staff to check every 3 hours and assist as needed. Needs one assist with toileting needs including pads, hillary cares and clothing management. Wears pull ups. Transfers/ambulates with a walker, and gait belt and one assist. Vital signs reviewed, with some elevated BP's. Continue weekly vital signs monitoring. Skin: On bath day rashy area noted on left lower leg, lotion applied. Today skin is rechecked and is looking better. Skin is checked during cares and on bath day.
[2022-06-18 15:00] VITALS: TEMP 37.2; O2SAT 98
[2022-06-18] MEDS: TAMSULOSIN HCL 0.4 MG CAPSULE PO (19:34)
[2022-06-18] MEDS: MIRTAZAPINE 15 MG TABLET 45 MG PO (19:34)
[2022-06-18] MEDS: ATORVASTATIN 10 MG TABLET PO (19:34)
[2022-06-18] MEDS: MELATONIN 5 MG TABLET PO (19:34)
[2022-06-18 23:00] VITALS: TEMP 36.6; O2SAT 94
[2022-06-19] MEDS: OXYCODONE 5 MG TABLET PO (08:28)
[2022-06-19] MEDS: ACETAMINOPHEN 500 MG TABLET 1000 MG PO ×3 (10:18→20:33)
[2022-06-19] MEDS: NICOTINE 21 MG PATCH 1 PATCH TRANSDERMA (10:18)
[2022-06-19] MEDS: CITALOPRAM HYDROBROMIDE 20 MG TABLET 10 MG PO (10:18)
[2022-06-19] MEDS: AMLODIPINE 10 MG TABLET PO (10:18)
[2022-06-19] MEDS: MEMANTINE HCL 10 MG TABLET PO ×2 (10:18→15:26)
[2022-06-19] MEDS: TROSPIUM CHLORIDE 20 MG TABLET PO ×2 (10:18→15:26)
[2022-06-19] MEDS: DULOXETINE 30 MG CAPSULE DR 90 MG PO (10:18)
[2022-06-19] MEDS: CANDESARTAN CILEXETIL 32 MG TABLET 16 MG PO (10:18)
[2022-06-19] MEDS: OMEPRAZOLE 20 MG CAPSULE DR PO (10:18)
[2022-06-19] MEDS: SENNOSIDES 1 TAB TABLET 2 TAB PO ×2 (10:18→15:26)
[2022-06-19 13:19] VITALS: TEMP 36.6; O2SAT 96
[2022-06-19 15:00] VITALS: TEMP 37.2; O2SAT 97
[2022-06-19] MEDS: ATORVASTATIN 10 MG TABLET PO (20:33)
[2022-06-19] MEDS: MELATONIN 5 MG TABLET PO (20:33)
[2022-06-19] MEDS: TAMSULOSIN HCL 0.4 MG CAPSULE PO (20:33)
[2022-06-19] MEDS: MIRTAZAPINE 15 MG TABLET 45 MG PO (20:33)
[2022-06-19 23:00] VITALS: TEMP 37; O2SAT 94
[2022-06-20] MEDS: OXYCODONE 5 MG TABLET PO (08:08)
[2022-06-20] MEDS: OMEPRAZOLE 20 MG CAPSULE DR PO (10:07)
[2022-06-20] MEDS: TROSPIUM CHLORIDE 20 MG TABLET PO ×2 (10:07→15:32)
[2022-06-20] MEDS: CANDESARTAN CILEXETIL 32 MG TABLET 16 MG PO (10:07)
[2022-06-20] MEDS: ACETAMINOPHEN 500 MG TABLET 1000 MG PO ×3 (10:07→20:18)
[2022-06-20] MEDS: CITALOPRAM HYDROBROMIDE 20 MG TABLET 10 MG PO (10:07)
[2022-06-20] MEDS: MEMANTINE HCL 10 MG TABLET PO ×2 (10:07→15:32)
[2022-06-20] MEDS: AMLODIPINE 10 MG TABLET PO (10:07)
[2022-06-20] MEDS: NICOTINE 21 MG PATCH 1 PATCH TRANSDERMA (10:07)
[2022-06-20] MEDS: SENNOSIDES 1 TAB TABLET 2 TAB PO ×2 (10:07→15:32)
[2022-06-20] MEDS: DULOXETINE 30 MG CAPSULE DR 90 MG PO (10:07)
[2022-06-20 10:53] VITALS: TEMP 36.4; O2SAT 96
[2022-06-20 15:00] VITALS: TEMP 37; O2SAT 94
[2022-06-20] MEDS: ATORVASTATIN 10 MG TABLET PO (20:18)
[2022-06-20] MEDS: MIRTAZAPINE 15 MG TABLET 45 MG PO (20:18)
[2022-06-20] MEDS: TAMSULOSIN HCL 0.4 MG CAPSULE PO (20:18)
[2022-06-20] MEDS: MELATONIN 5 MG TABLET PO (20:18)
[2022-06-20 23:00] VITALS: TEMP 36.7; O2SAT 93
[2022-06-21] MEDS: OXYCODONE 5 MG TABLET PO (08:40)
[2022-06-21 10:00] VITALS: TEMP 36.6; O2SAT 96
[2022-06-21] MEDS: ACETAMINOPHEN 500 MG TABLET 1000 MG PO ×3 (10:01→20:11)
[2022-06-21] MEDS: AMLODIPINE 10 MG TABLET PO (10:01)
[2022-06-21] MEDS: CANDESARTAN CILEXETIL 32 MG TABLET 16 MG PO (10:01)
[2022-06-21] MEDS: CITALOPRAM HYDROBROMIDE 20 MG TABLET 10 MG PO (10:01)
[2022-06-21] MEDS: DULOXETINE 30 MG CAPSULE DR 90 MG PO (10:02)
[2022-06-21] MEDS: TROSPIUM CHLORIDE 20 MG TABLET PO ×2 (10:02→15:09)
[2022-06-21] MEDS: NICOTINE 21 MG PATCH 1 PATCH TRANSDERMA (10:02)
[2022-06-21] MEDS: OMEPRAZOLE 20 MG CAPSULE DR PO (10:02)
[2022-06-21] MEDS: SENNOSIDES 1 TAB TABLET 2 TAB PO ×2 (10:02→15:09)
[2022-06-21] MEDS: MEMANTINE HCL 10 MG TABLET PO ×2 (10:02→15:09)
[2022-06-21 15:00] VITALS: TEMP 37.2; O2SAT 95
[2022-06-21] MEDS: MIRTAZAPINE 15 MG TABLET 45 MG PO (20:11)
[2022-06-21] MEDS: ATORVASTATIN 10 MG TABLET PO (20:11)
[2022-06-21] MEDS: MELATONIN 5 MG TABLET PO (20:11)
[2022-06-21] MEDS: TAMSULOSIN HCL 0.4 MG CAPSULE PO (20:11)
[2022-06-21 23:00] VITALS: TEMP 36.2; O2SAT 95
[2022-06-22] MEDS: OXYCODONE 5 MG TABLET PO (08:05)
[2022-06-22] MEDS: CANDESARTAN CILEXETIL 32 MG TABLET 16 MG PO (10:53)
[2022-06-22] MEDS: CITALOPRAM HYDROBROMIDE 20 MG TABLET 10 MG PO (10:53)
[2022-06-22] MEDS: AMLODIPINE 10 MG TABLET PO (10:53)
[2022-06-22] MEDS: MEMANTINE HCL 10 MG TABLET PO ×2 (10:53→15:53)
[2022-06-22] MEDS: DULOXETINE 30 MG CAPSULE DR 90 MG PO (10:53)
[2022-06-22] MEDS: ACETAMINOPHEN 500 MG TABLET 1000 MG PO ×3 (10:53→20:14)
[2022-06-22] MEDS: SENNOSIDES 1 TAB TABLET 2 TAB PO ×2 (10:54→15:53)
[2022-06-22] MEDS: NICOTINE 21 MG PATCH 1 PATCH TRANSDERMA (10:54)
[2022-06-22] MEDS: TROSPIUM CHLORIDE 20 MG TABLET PO ×2 (10:54→15:53)
[2022-06-22] MEDS: OMEPRAZOLE 20 MG CAPSULE DR PO (10:54)
[2022-06-22 13:58] VITALS: TEMP 36.4; O2SAT 94
[2022-06-22 14:11] LABS: SARS PCR* Negative SARS-CoV-2 (Negative)
[2022-06-22] MEDS: ATORVASTATIN 10 MG TABLET PO (20:14)
[2022-06-22] MEDS: TAMSULOSIN HCL 0.4 MG CAPSULE PO (20:14)
[2022-06-22] MEDS: MIRTAZAPINE 15 MG TABLET 45 MG PO (20:14)
[2022-06-22] MEDS: MELATONIN 5 MG TABLET PO (20:14)
[2022-06-22 21:08] VITALS: TEMP 37.2; O2SAT 92
[2022-06-22 23:00] VITALS: TEMP 36.4; O2SAT 96
[2022-06-23] MEDS: OXYCODONE 5 MG TABLET PO ×2 (07:48→13:21)
[2022-06-23] MEDS: AMLODIPINE 10 MG TABLET PO (09:15)
[2022-06-23] MEDS: ACETAMINOPHEN 500 MG TABLET 1000 MG PO ×3 (09:15→20:18)
[2022-06-23] MEDS: TROSPIUM CHLORIDE 20 MG TABLET PO ×2 (09:16→16:06)
[2022-06-23] MEDS: CITALOPRAM HYDROBROMIDE 20 MG TABLET 10 MG PO (09:16)
[2022-06-23] MEDS: OMEPRAZOLE 20 MG CAPSULE DR PO (09:16)
[2022-06-23] MEDS: SENNOSIDES 1 TAB TABLET 2 TAB PO ×2 (09:16→16:06)
[2022-06-23] MEDS: DULOXETINE 30 MG CAPSULE DR 90 MG PO (09:16)
[2022-06-23] MEDS: CANDESARTAN CILEXETIL 32 MG TABLET 16 MG PO (09:16)
[2022-06-23] MEDS: MEMANTINE HCL 10 MG TABLET PO ×2 (09:16→16:06)
[2022-06-23] MEDS: NICOTINE 21 MG PATCH 1 PATCH TRANSDERMA (09:16)
--- NOTE | 2022-06-23 10:53 | PC.NURSE ---
Pt wheeling along in the hallway upset and demanding to go home. Lorazepam Rx . Called [facility] triage line to request new Rx. RN at [facility] said she would fax new Lorazepam Rx for pt.
[2022-06-23 11:28] VITALS: TEMP 36.9; O2SAT 94
--- NOTE | 2022-06-23 14:15 | PC.NURSE ---
Behavior : Resident woke up at 0730 and has been anxious on trying to exit from the unit. She keep on asking staff to call her daughter and finding phone book to call her. She refused breakfast however she took her lunch. she has been waiting at the nurses station this shift to know when she can go back home. [facility] to request an order for lorazepam which has after 14 days. Received order from [facility] and PRN Lorazepan was given 1321 hours. Resident went back to her room to rest on her recliner.
[2022-06-23] MEDS: MELATONIN 5 MG TABLET PO (19:42)
[2022-06-23] MEDS: TAMSULOSIN HCL 0.4 MG CAPSULE PO (19:42)
[2022-06-23] MEDS: MIRTAZAPINE 15 MG TABLET 45 MG PO (19:42)
[2022-06-23] MEDS: ATORVASTATIN 10 MG TABLET PO (19:42)
[2022-06-23 23:00] VITALS: TEMP 36.6; O2SAT 93
[2022-06-24] MEDS: OXYCODONE 5 MG TABLET PO (08:08)
[2022-06-24] MEDS: AMLODIPINE 10 MG TABLET PO (09:49)
[2022-06-24] MEDS: CANDESARTAN CILEXETIL 32 MG TABLET 16 MG PO (09:49)
[2022-06-24] MEDS: ACETAMINOPHEN 500 MG TABLET 1000 MG PO ×3 (09:49→20:11)
[2022-06-24] MEDS: MEMANTINE HCL 10 MG TABLET PO ×2 (10:28→15:24)
[2022-06-24] MEDS: NICOTINE 21 MG PATCH 1 PATCH TRANSDERMA (10:28)
[2022-06-24] MEDS: DULOXETINE 30 MG CAPSULE DR 90 MG PO (10:28)
[2022-06-24] MEDS: CITALOPRAM HYDROBROMIDE 20 MG TABLET 10 MG PO (10:28)
[2022-06-24] MEDS: OMEPRAZOLE 20 MG CAPSULE DR PO (10:29)
[2022-06-24] MEDS: SENNOSIDES 1 TAB TABLET 2 TAB PO ×2 (10:29→15:24)
[2022-06-24] MEDS: TROSPIUM CHLORIDE 20 MG TABLET PO ×2 (10:29→15:25)
[2022-06-24 11:12] VITALS: BP 151/83; PULSE 102; RESP 20; TEMP 36.9; O2SAT 92
--- NOTE | 2022-06-24 11:17 | PC.NURSE ---
Behavior Problem: Resident refused to get out of bed because staff refused to let her go back home. She informed that if she cant go back home, she might as well stay in bed. Resident however took all her morning medication and when functional tester typewriters put on her nicotine patch, resident informed that she feels we are treating her like a dog because we keep giving orders. Staff allowed resident to stay in her room and watch TV.
[2022-06-24] MEDS: TAMSULOSIN HCL 0.4 MG CAPSULE PO (19:51)
[2022-06-24] MEDS: MIRTAZAPINE 15 MG TABLET 45 MG PO (19:51)
[2022-06-24] MEDS: MELATONIN 5 MG TABLET PO (19:51)
[2022-06-24] MEDS: ATORVASTATIN 10 MG TABLET PO (19:51)
[2022-06-24 23:00] VITALS: TEMP 36.7; O2SAT 93
--- NOTE | 2022-06-25 02:00 | PC.NURSE ---
WEEKLY CHARTING - WEEK 4: Vital signs reviewed. Temporary and comprehensive care plan reviewed - no change. Multiple documented behavioral episodes in the last month. Currently receives melatonin 5mg at HS, mirtazapine 45mg at HS, duloxetine 90mg daily, citalopram 10mg daily, and lorazepam 0.5mg Q8 hours PRN. No noted adverse drug effects. Resident is able to communicate needs. Cognitive deficit r/t dementia. Hears adequately. Wears glasses. All medications administered by licensed nurse. Health condition is stable.
[2022-06-25] MEDS: OXYCODONE 5 MG TABLET PO (07:49)
[2022-06-25 10:28] VITALS: TEMP 37.1; O2SAT 94
[2022-06-25] MEDS: CANDESARTAN CILEXETIL 32 MG TABLET 16 MG PO (10:31)
[2022-06-25] MEDS: AMLODIPINE 10 MG TABLET PO (10:31)
[2022-06-25] MEDS: CITALOPRAM HYDROBROMIDE 20 MG TABLET 10 MG PO (10:31)
[2022-06-25] MEDS: ACETAMINOPHEN 500 MG TABLET 1000 MG PO ×3 (10:31→19:51)
[2022-06-25] MEDS: polyethylene glycoL 3350 17 GM PACK PO (10:32)
[2022-06-25] MEDS: MEMANTINE HCL 10 MG TABLET PO ×2 (10:32→15:31)
[2022-06-25] MEDS: NICOTINE 21 MG PATCH 1 PATCH TRANSDERMA (10:32)
[2022-06-25] MEDS: SENNOSIDES 1 TAB TABLET 2 TAB PO ×2 (10:32→15:31)
[2022-06-25] MEDS: DULOXETINE 30 MG CAPSULE DR 90 MG PO (10:32)
[2022-06-25] MEDS: TROSPIUM CHLORIDE 20 MG TABLET PO ×2 (10:32→15:31)
[2022-06-25] MEDS: OMEPRAZOLE 20 MG CAPSULE DR PO (10:32)
--- NOTE | 2022-06-25 11:43 | PC.NURSE ---
Week #4: Comprehensive care plan reviewed, no changes made. Nothing added to temporary care plan. Resident does communicate. Has minimal hearing difficulty in some environment. Visual impairment corrected with glasses. Has cognitive impairment r/t dementia. Chronic health condition stable. Vital signs fine. Is not able to self administer medications. Mood/Behavior: Has multiple issues the last month and is hard to redirect/reorient. 06/23/22 Ativan 0.5mg Q8H PRN X 14 days reordered. Continues on Remeron 45mg HS, Aeqtri91xx daily, Cymbalta 90 mg daily without adverse effects noted. Continue to monitor for changes.
[2022-06-25] MEDS: TAMSULOSIN HCL 0.4 MG CAPSULE PO (19:51)
[2022-06-25] MEDS: ATORVASTATIN 10 MG TABLET PO (19:51)
[2022-06-25] MEDS: MIRTAZAPINE 15 MG TABLET 45 MG PO (19:51)
[2022-06-25] MEDS: MELATONIN 5 MG TABLET PO (19:51)
[2022-06-25 21:31] VITALS: TEMP 37.5; O2SAT 94
[2022-06-25 23:00] VITALS: TEMP 36.7; O2SAT 94
[2022-06-26 07:00] VITALS: TEMP 36.7; O2SAT 94
[2022-06-26] MEDS: OXYCODONE 5 MG TABLET PO (08:09)
[2022-06-26] MEDS: ACETAMINOPHEN 500 MG TABLET 1000 MG PO ×3 (09:45→20:30)
[2022-06-26] MEDS: AMLODIPINE 10 MG TABLET PO (09:45)
[2022-06-26] MEDS: CANDESARTAN CILEXETIL 32 MG TABLET 16 MG PO (10:53)
[2022-06-26] MEDS: NICOTINE 21 MG PATCH 1 PATCH TRANSDERMA (10:53)
[2022-06-26] MEDS: CITALOPRAM HYDROBROMIDE 20 MG TABLET 10 MG PO (10:53)
[2022-06-26] MEDS: MEMANTINE HCL 10 MG TABLET PO ×2 (10:53→15:40)
[2022-06-26] MEDS: DULOXETINE 30 MG CAPSULE DR 90 MG PO (10:53)
[2022-06-26] MEDS: OMEPRAZOLE 20 MG CAPSULE DR PO (10:54)
[2022-06-26] MEDS: SENNOSIDES 1 TAB TABLET 2 TAB PO ×2 (10:54→15:40)
[2022-06-26] MEDS: TROSPIUM CHLORIDE 20 MG TABLET PO ×2 (10:54→15:40)
[2022-06-26 15:00] VITALS: TEMP 37.1; O2SAT 96
[2022-06-26] MEDS: MELATONIN 5 MG TABLET PO (19:30)
[2022-06-26] MEDS: TAMSULOSIN HCL 0.4 MG CAPSULE PO (19:30)
[2022-06-26] MEDS: ATORVASTATIN 10 MG TABLET PO (19:30)
[2022-06-26] MEDS: MIRTAZAPINE 15 MG TABLET 45 MG PO (19:30)
[2022-06-26 23:00] VITALS: TEMP 36.6; O2SAT 94
[2022-06-27 07:00] VITALS: TEMP 37.2; O2SAT 94
[2022-06-27] MEDS: OXYCODONE 5 MG TABLET PO (07:48)
[2022-06-27] MEDS: TROSPIUM CHLORIDE 20 MG TABLET PO ×2 (09:00→15:58)
[2022-06-27] MEDS: SENNOSIDES 1 TAB TABLET 2 TAB PO ×2 (09:00→15:58)
[2022-06-27] MEDS: CANDESARTAN CILEXETIL 32 MG TABLET 16 MG PO (09:00)
[2022-06-27] MEDS: OMEPRAZOLE 20 MG CAPSULE DR PO (09:00)
[2022-06-27] MEDS: CITALOPRAM HYDROBROMIDE 20 MG TABLET 10 MG PO (09:00)
[2022-06-27] MEDS: ACETAMINOPHEN 500 MG TABLET 1000 MG PO ×3 (09:00→20:10)
[2022-06-27] MEDS: DULOXETINE 30 MG CAPSULE DR 90 MG PO (09:00)
[2022-06-27] MEDS: NICOTINE 21 MG PATCH 1 PATCH TRANSDERMA (09:00)
[2022-06-27] MEDS: MEMANTINE HCL 10 MG TABLET PO ×2 (09:00→15:58)
[2022-06-27] MEDS: AMLODIPINE 10 MG TABLET PO (09:00)
[2022-06-27 15:00] VITALS: TEMP 37.2; O2SAT 94
[2022-06-27] MEDS: TAMSULOSIN HCL 0.4 MG CAPSULE PO (19:26)
[2022-06-27] MEDS: MELATONIN 5 MG TABLET PO (19:26)
[2022-06-27] MEDS: ATORVASTATIN 10 MG TABLET PO (19:26)
[2022-06-27] MEDS: MIRTAZAPINE 15 MG TABLET 45 MG PO (19:26)
[2022-06-27 23:00] VITALS: TEMP 36.4; O2SAT 93
[2022-06-28 07:00] VITALS: TEMP 36.6; O2SAT 93
[2022-06-28] MEDS: OXYCODONE 5 MG TABLET PO (08:03)
[2022-06-28] MEDS: MEMANTINE HCL 10 MG TABLET PO ×2 (09:33→16:22)
[2022-06-28] MEDS: ACETAMINOPHEN 500 MG TABLET 1000 MG PO ×3 (09:33→20:01)
[2022-06-28] MEDS: TROSPIUM CHLORIDE 20 MG TABLET PO ×2 (09:33→16:23)
[2022-06-28] MEDS: CANDESARTAN CILEXETIL 32 MG TABLET 16 MG PO (09:33)
[2022-06-28] MEDS: SENNOSIDES 1 TAB TABLET 2 TAB PO ×2 (09:33→16:22)
[2022-06-28] MEDS: AMLODIPINE 10 MG TABLET PO (09:33)
[2022-06-28] MEDS: DULOXETINE 30 MG CAPSULE DR 90 MG PO (09:33)
[2022-06-28] MEDS: NICOTINE 21 MG PATCH 1 PATCH TRANSDERMA (09:33)
[2022-06-28] MEDS: OMEPRAZOLE 20 MG CAPSULE DR PO (09:33)
[2022-06-28] MEDS: CITALOPRAM HYDROBROMIDE 20 MG TABLET 10 MG PO (09:33)
[2022-06-28 15:00] VITALS: TEMP 36.6; O2SAT 93
[2022-06-28] MEDS: MELATONIN 5 MG TABLET PO (19:41)
[2022-06-28] MEDS: ATORVASTATIN 10 MG TABLET PO (19:41)
[2022-06-28] MEDS: MIRTAZAPINE 15 MG TABLET 45 MG PO (19:41)
[2022-06-28] MEDS: TAMSULOSIN HCL 0.4 MG CAPSULE PO (19:41)
[2022-06-28 23:00] VITALS: TEMP 36.7; O2SAT 94
--- NOTE | 2022-06-29 05:37 | PC.NURSE ---
BEHAVIOR: Resident set off bed alarm at approximately 2210 and came out into hallway looking to get the hell out of here. Insistent that there are people outside waiting in the car for her. Resident is pacing up and down hallways, yelling, swearing, looking out doors at the ends of halls. Staff attempted to redirect, offered food/drink, television, pain was addressed. Toileting offered. Resident feelings validated. Became tired and agreed to sit in w/c. Was propelling self up/down hallways. Left in safe setting with supervision. Resident became tired and asked if there was a couch she could lay down on. Requested staff assist her home in the morning after she had gotten some sleep. Was assisted to the toilet and to bed. No further behaviors through the night.
[2022-06-29] MEDS: OXYCODONE 5 MG TABLET PO (08:04)
--- NOTE | 2022-06-29 10:10 | PC.NURSE ---
COVID OUTBREAK TESTING Residents daughter provided verbal consent for outbreak COVID testing. Resident is currently asymptomatic.? Resident/family will be notified only if resident is positive.
[2022-06-29] MEDS: CANDESARTAN CILEXETIL 32 MG TABLET 16 MG PO (10:13)
[2022-06-29] MEDS: CITALOPRAM HYDROBROMIDE 20 MG TABLET 10 MG PO (10:13)
[2022-06-29] MEDS: DULOXETINE 30 MG CAPSULE DR 90 MG PO (10:13)
[2022-06-29] MEDS: AMLODIPINE 10 MG TABLET PO (10:13)
[2022-06-29] MEDS: ACETAMINOPHEN 500 MG TABLET 1000 MG PO ×3 (10:13→19:35)
[2022-06-29] MEDS: MEMANTINE HCL 10 MG TABLET PO ×2 (10:14→15:50)
[2022-06-29] MEDS: NICOTINE 21 MG PATCH 1 PATCH TRANSDERMA (10:14)
[2022-06-29] MEDS: SENNOSIDES 1 TAB TABLET 2 TAB PO ×2 (10:15→15:50)
[2022-06-29] MEDS: OMEPRAZOLE 20 MG CAPSULE DR PO (10:15)
[2022-06-29] MEDS: TROSPIUM CHLORIDE 20 MG TABLET PO ×2 (10:15→15:50)
[2022-06-29 13:06] LABS: SARS PCR* Negative SARS-CoV-2 (Negative)
[2022-06-29 13:28] VITALS: TEMP 36.4; O2SAT 96
[2022-06-29] MEDS: MIRTAZAPINE 15 MG TABLET 45 MG PO (19:38)
[2022-06-29] MEDS: ATORVASTATIN 10 MG TABLET PO (19:38)
[2022-06-29] MEDS: MELATONIN 5 MG TABLET PO (19:38)
[2022-06-29] MEDS: TAMSULOSIN HCL 0.4 MG CAPSULE PO (19:38)
[2022-06-29 21:27] VITALS: TEMP 37.2; O2SAT 95
[2022-06-29 23:00] VITALS: TEMP 36.6; O2SAT 94
[2022-06-30] MEDS: OXYCODONE 5 MG TABLET PO (07:46)
[2022-06-30] MEDS: NICOTINE 21 MG PATCH 1 PATCH TRANSDERMA (09:46)
[2022-06-30] MEDS: MEMANTINE HCL 10 MG TABLET PO ×2 (09:46→15:08)
[2022-06-30] MEDS: CITALOPRAM HYDROBROMIDE 20 MG TABLET 10 MG PO (09:46)
[2022-06-30] MEDS: ACETAMINOPHEN 500 MG TABLET 1000 MG PO ×3 (09:46→20:19)
[2022-06-30] MEDS: DULOXETINE 30 MG CAPSULE DR 90 MG PO (09:46)
[2022-06-30] MEDS: AMLODIPINE 10 MG TABLET PO (09:46)
[2022-06-30] MEDS: CANDESARTAN CILEXETIL 32 MG TABLET 16 MG PO (09:46)
[2022-06-30] MEDS: SENNOSIDES 1 TAB TABLET 2 TAB PO ×2 (09:47→15:08)
[2022-06-30] MEDS: TROSPIUM CHLORIDE 20 MG TABLET PO ×2 (09:47→15:08)
[2022-06-30] MEDS: OMEPRAZOLE 20 MG CAPSULE DR PO (09:47)
[2022-06-30 10:39] VITALS: TEMP 36.8; O2SAT 96
[2022-06-30 15:00] VITALS: TEMP 37.2
[2022-06-30] MEDS: ATORVASTATIN 10 MG TABLET PO (19:28)
[2022-06-30] MEDS: MIRTAZAPINE 15 MG TABLET 45 MG PO (19:28)
[2022-06-30] MEDS: TAMSULOSIN HCL 0.4 MG CAPSULE PO (19:28)
[2022-06-30] MEDS: MELATONIN 5 MG TABLET PO (19:28)
[2022-06-30 23:00] VITALS: TEMP 36.8; O2SAT 94
[2022-07-01] MEDS: OXYCODONE 5 MG TABLET PO (08:01)
[2022-07-01] MEDS: CANDESARTAN CILEXETIL 32 MG TABLET 16 MG PO (10:32)
[2022-07-01] MEDS: DULOXETINE 30 MG CAPSULE DR 90 MG PO (10:32)
[2022-07-01] MEDS: OMEPRAZOLE 20 MG CAPSULE DR PO (10:32)
[2022-07-01] MEDS: CITALOPRAM HYDROBROMIDE 20 MG TABLET 10 MG PO (10:32)
[2022-07-01] MEDS: TROSPIUM CHLORIDE 20 MG TABLET PO ×2 (10:32→15:02)
[2022-07-01] MEDS: AMLODIPINE 10 MG TABLET PO (10:32)
[2022-07-01] MEDS: ACETAMINOPHEN 500 MG TABLET 1000 MG PO ×3 (10:32→20:08)
[2022-07-01] MEDS: SENNOSIDES 1 TAB TABLET 2 TAB PO ×2 (10:32→15:02)
[2022-07-01] MEDS: MEMANTINE HCL 10 MG TABLET PO ×2 (10:32→15:02)
[2022-07-01 10:57] VITALS: TEMP 36.9; O2SAT 95
[2022-07-01] MEDS: NICOTINE 21 MG PATCH 1 PATCH TRANSDERMA (12:16)
[2022-07-01 13:22] VITALS: BP 142/80; PULSE 82; RESP 18; TEMP 36.8; O2SAT 93
--- NOTE | 2022-07-01 14:15 | PC.NURSE ---
Bath: Resident refused bath today. She informed that she usually have sponge bath at home and prefer have it here.
[2022-07-01 15:00] VITALS: TEMP 37.2; O2SAT 95
[2022-07-01] MEDS: TAMSULOSIN HCL 0.4 MG CAPSULE PO (19:31)
[2022-07-01] MEDS: ATORVASTATIN 10 MG TABLET PO (19:31)
[2022-07-01] MEDS: MELATONIN 5 MG TABLET PO (19:31)
[2022-07-01] MEDS: MIRTAZAPINE 15 MG TABLET 45 MG PO (19:31)
[2022-07-01 23:00] VITALS: TEMP 36.6; O2SAT 95
[2022-07-02] MEDS: OXYCODONE 5 MG TABLET PO (07:36)
[2022-07-02] MEDS: ACETAMINOPHEN 500 MG TABLET 1000 MG PO ×3 (10:07→20:14)
[2022-07-02] MEDS: CITALOPRAM HYDROBROMIDE 20 MG TABLET 10 MG PO (10:07)
[2022-07-02] MEDS: CANDESARTAN CILEXETIL 32 MG TABLET 16 MG PO (10:07)
[2022-07-02] MEDS: AMLODIPINE 10 MG TABLET PO (10:07)
[2022-07-02] MEDS: SENNOSIDES 1 TAB TABLET 2 TAB PO ×2 (10:08→15:26)
[2022-07-02] MEDS: TROSPIUM CHLORIDE 20 MG TABLET PO ×2 (10:08→15:26)
[2022-07-02] MEDS: DULOXETINE 30 MG CAPSULE DR 90 MG PO (10:08)
[2022-07-02] MEDS: NICOTINE 21 MG PATCH 1 PATCH TRANSDERMA (10:08)
[2022-07-02] MEDS: MEMANTINE HCL 10 MG TABLET PO ×2 (10:08→15:26)
[2022-07-02] MEDS: OMEPRAZOLE 20 MG CAPSULE DR PO (10:08)
[2022-07-02 10:37] VITALS: TEMP 36.6; O2SAT 94
[2022-07-02 15:00] VITALS: TEMP 37; O2SAT 94
--- NOTE | 2022-07-02 18:00 | PC.NURSE ---
Around 1500 House keeping found 2 tablets in the floor close to trash can. Upon vulnerability assessment analyst one tablet is color orange small table and other one is white oblong looks like slightly chew and pit out. Pass on to incoming nurse to make sure Res swallow and not pocketing the medication.
[2022-07-02] MEDS: MELATONIN 5 MG TABLET PO (19:44)
[2022-07-02] MEDS: ATORVASTATIN 10 MG TABLET PO (19:44)
[2022-07-02] MEDS: MIRTAZAPINE 15 MG TABLET 45 MG PO (19:44)
[2022-07-02] MEDS: TAMSULOSIN HCL 0.4 MG CAPSULE PO (19:45)
[2022-07-02 23:00] VITALS: TEMP 36.3; O2SAT 95
[2022-07-03] MEDS: OXYCODONE 5 MG TABLET PO (08:20)
[2022-07-03 10:47] VITALS: TEMP 36.6; O2SAT 92
[2022-07-03] MEDS: ACETAMINOPHEN 500 MG TABLET 1000 MG PO ×3 (10:49→20:35)
[2022-07-03] MEDS: MEMANTINE HCL 10 MG TABLET PO ×2 (10:49→16:01)
[2022-07-03] MEDS: DULOXETINE 30 MG CAPSULE DR 90 MG PO (10:49)
[2022-07-03] MEDS: NICOTINE 21 MG PATCH 1 PATCH TRANSDERMA (10:49)
[2022-07-03] MEDS: CITALOPRAM HYDROBROMIDE 20 MG TABLET 10 MG PO (10:49)
[2022-07-03] MEDS: AMLODIPINE 10 MG TABLET PO (10:49)
[2022-07-03] MEDS: CANDESARTAN CILEXETIL 32 MG TABLET 16 MG PO (10:49)
[2022-07-03] MEDS: TROSPIUM CHLORIDE 20 MG TABLET PO ×2 (10:50→16:01)
[2022-07-03] MEDS: SENNOSIDES 1 TAB TABLET 2 TAB PO ×2 (10:50→16:01)
[2022-07-03] MEDS: OMEPRAZOLE 20 MG CAPSULE DR PO (10:50)
--- NOTE | 2022-07-03 10:55 | PC.NURSE ---
Recert Visit: Resident seen by Dr. Vazquez. Orders reviewed and renewed for 45 days with changes. Order: Taper nicotine patch as follows: D/C Nicotine patch 21 mg, Nicotine patch 14 mg - Apply to skin & change daily x 14 days then Nicotine patch 7 mg x 14 days then discontinue.
[2022-07-03 15:00] VITALS: TEMP 36.7; O2SAT 96
[2022-07-03] MEDS: MELATONIN 5 MG TABLET PO (20:35)
[2022-07-03] MEDS: TAMSULOSIN HCL 0.4 MG CAPSULE PO (20:35)
[2022-07-03] MEDS: MIRTAZAPINE 15 MG TABLET 45 MG PO (20:35)
[2022-07-03] MEDS: ATORVASTATIN 10 MG TABLET PO (20:35)
[2022-07-03 23:00] VITALS: TEMP 36.6; O2SAT 92
[2022-07-04] MEDS: OXYCODONE 5 MG TABLET PO (08:07)
[2022-07-04] MEDS: CANDESARTAN CILEXETIL 32 MG TABLET 16 MG PO (10:16)
[2022-07-04] MEDS: CITALOPRAM HYDROBROMIDE 20 MG TABLET 10 MG PO (10:16)
[2022-07-04] MEDS: DULOXETINE 30 MG CAPSULE DR 90 MG PO (10:16)
[2022-07-04] MEDS: ACETAMINOPHEN 500 MG TABLET 1000 MG PO ×3 (10:16→20:25)
[2022-07-04] MEDS: MEMANTINE HCL 10 MG TABLET PO ×2 (10:16→15:25)
[2022-07-04] MEDS: AMLODIPINE 10 MG TABLET PO (10:16)
[2022-07-04] MEDS: SENNOSIDES 1 TAB TABLET 2 TAB PO ×2 (10:17→15:25)
[2022-07-04] MEDS: OMEPRAZOLE 20 MG CAPSULE DR PO (10:17)
[2022-07-04] MEDS: TROSPIUM CHLORIDE 20 MG TABLET PO ×2 (10:17→15:25)
[2022-07-04] MEDS: NICOTINE 14 mg PATCH 1 PATCH TRANSDERMA (10:59)
[2022-07-04 13:20] VITALS: TEMP 36.3; O2SAT 94
--- NOTE | 2022-07-04 13:21 | PC.NURSE ---
Behaviors: Resident had behaviors mostly in AM today. At start of shift was noted to be walking down kaur with walker by herself, swearing and looking for the girls. Was very difficult to redirect. Staff were able to get her in her wheelchair where she continued to wheel self through kaur wanting to leave and looking for girls. Eventually calmed down and went back to bed.
[2022-07-04 15:00] VITALS: TEMP 36.6; O2SAT 95
[2022-07-04] MEDS: TAMSULOSIN HCL 0.4 MG CAPSULE PO (20:25)
[2022-07-04] MEDS: ATORVASTATIN 10 MG TABLET PO (20:25)
[2022-07-04] MEDS: MIRTAZAPINE 15 MG TABLET 45 MG PO (20:25)
[2022-07-04] MEDS: MELATONIN 5 MG TABLET PO (20:25)
[2022-07-04 23:00] VITALS: TEMP 36.5; O2SAT 93
[2022-07-05] MEDS: OXYCODONE 5 MG TABLET PO (07:59)
[2022-07-05] MEDS: OMEPRAZOLE 20 MG CAPSULE DR PO (09:50)
[2022-07-05] MEDS: DULOXETINE 30 MG CAPSULE DR 90 MG PO (09:50)
[2022-07-05] MEDS: SENNOSIDES 1 TAB TABLET 2 TAB PO ×2 (09:50→15:45)
[2022-07-05] MEDS: MEMANTINE HCL 10 MG TABLET PO ×2 (09:50→15:45)
[2022-07-05] MEDS: CANDESARTAN CILEXETIL 32 MG TABLET 16 MG PO (09:50)
[2022-07-05] MEDS: TROSPIUM CHLORIDE 20 MG TABLET PO ×2 (09:50→15:45)
[2022-07-05] MEDS: CITALOPRAM HYDROBROMIDE 20 MG TABLET 10 MG PO (09:50)
[2022-07-05] MEDS: ACETAMINOPHEN 500 MG TABLET 1000 MG PO ×3 (09:50→20:01)
[2022-07-05] MEDS: AMLODIPINE 10 MG TABLET PO (09:50)
--- NOTE | 2022-07-05 09:51 | PC.NURSE ---
Behavior: Resident again was up walking in kaur with walker at the beginning of the shift. Was swearing, stating she Had to get the fk out of here! and trying to walk to doors to go out. Also stated that her family was waiting for her. Staff were unable to redirect her. Attempted to give her oxycodone but she would not take it. She eventually settled down and staff were able to get her into the wheelchair. She came out for breakfast and then went to her room.
--- NOTE | 2022-07-05 10:06 | PC.NURSE ---
Status: Oxycodone @ 0800 changed to 0500. Resident has been getting up early in the morning with behaviors probably r/t pain & very difficult to redirect.
[2022-07-05] MEDS: NICOTINE 14 mg PATCH 1 PATCH TRANSDERMA (11:07)
[2022-07-05 13:10] VITALS: TEMP 36.3; O2SAT 94
[2022-07-05 15:00] VITALS: TEMP 36.9; O2SAT 95
[2022-07-05] MEDS: ATORVASTATIN 10 MG TABLET PO (20:01)
[2022-07-05] MEDS: MELATONIN 5 MG TABLET PO (20:01)
[2022-07-05] MEDS: TAMSULOSIN HCL 0.4 MG CAPSULE PO (20:01)
[2022-07-05] MEDS: MIRTAZAPINE 15 MG TABLET 45 MG PO (20:01)
[2022-07-05 23:00] VITALS: TEMP 37.1; O2SAT 95
[2022-07-06] MEDS: OXYCODONE 5 MG TABLET PO (04:28)
--- NOTE | 2022-07-06 09:48 | PC.NURSE ---
COVID OUTBREAK TESTING Residents daughter gave verbal consent for outbreak COVID testing. Resident is currently asymptomatic.? Resident/family will be notified only if resident is positive.
[2022-07-06 09:53] VITALS: TEMP 36.9; O2SAT 95
[2022-07-06] MEDS: CITALOPRAM HYDROBROMIDE 20 MG TABLET 10 MG PO (10:13)
[2022-07-06] MEDS: AMLODIPINE 10 MG TABLET PO (10:13)
[2022-07-06] MEDS: CANDESARTAN CILEXETIL 32 MG TABLET 16 MG PO (10:13)
[2022-07-06] MEDS: ACETAMINOPHEN 500 MG TABLET 1000 MG PO ×3 (10:13→19:08)
[2022-07-06] MEDS: MEMANTINE HCL 10 MG TABLET PO ×2 (10:14→15:58)
[2022-07-06] MEDS: DULOXETINE 30 MG CAPSULE DR 90 MG PO (10:14)
[2022-07-06] MEDS: OMEPRAZOLE 20 MG CAPSULE DR PO (10:14)
[2022-07-06] MEDS: SENNOSIDES 1 TAB TABLET 2 TAB PO ×2 (10:15→15:58)
[2022-07-06] MEDS: TROSPIUM CHLORIDE 20 MG TABLET PO ×2 (10:15→15:58)
[2022-07-06] MEDS: NICOTINE 14 mg PATCH 1 PATCH TRANSDERMA (10:44)
[2022-07-06 11:22] LABS: SARS PCR* Negative SARS-CoV-2 (Negative)
--- NOTE | 2022-07-06 13:31 | PC.NURSE ---
Behavior: Resident refused all cares this shift, stated she Doesn't give a st!
--- NOTE | 2022-07-06 13:39 | PC.SOCIAL ---
Resident has been accepted to [facility] in [place] for Wednesday, 07/10. Her daughter Ham is transporting.
[2022-07-06] MEDS: ATORVASTATIN 10 MG TABLET PO (19:11)
[2022-07-06] MEDS: TAMSULOSIN HCL 0.4 MG CAPSULE PO (19:11)
[2022-07-06] MEDS: MELATONIN 5 MG TABLET PO (19:11)
[2022-07-06] MEDS: MIRTAZAPINE 15 MG TABLET 45 MG PO (19:11)
[2022-07-06 21:09] VITALS: TEMP 37; O2SAT 96
[2022-07-07 02:07] VITALS: TEMP 36.6; O2SAT 92
[2022-07-07] MEDS: OXYCODONE 5 MG TABLET PO (05:04)
[2022-07-07] MEDS: ACETAMINOPHEN 500 MG TABLET 1000 MG PO ×3 (09:49→21:20)
[2022-07-07] MEDS: MEMANTINE HCL 10 MG TABLET PO ×2 (09:49→16:01)
[2022-07-07] MEDS: CANDESARTAN CILEXETIL 32 MG TABLET 16 MG PO (09:49)
[2022-07-07] MEDS: OMEPRAZOLE 20 MG CAPSULE DR PO (09:49)
[2022-07-07] MEDS: AMLODIPINE 10 MG TABLET PO (09:49)
[2022-07-07] MEDS: DULOXETINE 30 MG CAPSULE DR 90 MG PO (09:49)
[2022-07-07] MEDS: CITALOPRAM HYDROBROMIDE 20 MG TABLET 10 MG PO (09:49)
[2022-07-07] MEDS: TROSPIUM CHLORIDE 20 MG TABLET PO ×2 (09:49→16:02)
[2022-07-07] MEDS: SENNOSIDES 1 TAB TABLET 2 TAB PO ×2 (09:49→16:01)
--- NOTE | 2022-07-07 10:34 | PC.NURSE ---
Discharge Information: Resident will be discharging to [facility] on 07/10/22. Medication list signed by provider and sent to memory care unit at this time. Family to transport.
[2022-07-07 10:51] VITALS: TEMP 36.8; O2SAT 95
[2022-07-07] MEDS: NICOTINE 14 mg PATCH 1 PATCH TRANSDERMA (11:51)
[2022-07-07 15:00] VITALS: TEMP 37.2; O2SAT 97
[2022-07-07] MEDS: MELATONIN 5 MG TABLET PO (19:07)
[2022-07-07] MEDS: TAMSULOSIN HCL 0.4 MG CAPSULE PO (19:07)
[2022-07-07] MEDS: MIRTAZAPINE 15 MG TABLET 45 MG PO (19:07)
[2022-07-07] MEDS: ATORVASTATIN 10 MG TABLET PO (19:07)
[2022-07-07 23:00] VITALS: TEMP 36.2; O2SAT 95
[2022-07-08] MEDS: OXYCODONE 5 MG TABLET PO (04:33)
[2022-07-08] MEDS: OMEPRAZOLE 20 MG CAPSULE DR PO (09:09)
[2022-07-08] MEDS: SENNOSIDES 1 TAB TABLET 2 TAB PO ×2 (09:09→16:24)
[2022-07-08] MEDS: MEMANTINE HCL 10 MG TABLET PO ×2 (09:09→16:24)
[2022-07-08] MEDS: ACETAMINOPHEN 500 MG TABLET 1000 MG PO ×3 (09:09→20:22)
[2022-07-08] MEDS: DULOXETINE 30 MG CAPSULE DR 90 MG PO (09:09)
[2022-07-08] MEDS: AMLODIPINE 10 MG TABLET PO (09:09)
[2022-07-08] MEDS: CANDESARTAN CILEXETIL 32 MG TABLET 16 MG PO (09:09)
[2022-07-08] MEDS: TROSPIUM CHLORIDE 20 MG TABLET PO ×2 (09:09→16:24)
[2022-07-08] MEDS: CITALOPRAM HYDROBROMIDE 20 MG TABLET 10 MG PO (09:09)
[2022-07-08 09:52] VITALS: TEMP 36.6; O2SAT 94
[2022-07-08] MEDS: NICOTINE 14 mg PATCH 1 PATCH TRANSDERMA (11:30)
[2022-07-08 14:15] VITALS: BP 176/75; PULSE 106; RESP 22; TEMP 36.6; O2SAT 94; BMI 21.0
[2022-07-08 15:00] VITALS: TEMP 36.6; O2SAT 95
[2022-07-08] MEDS: TAMSULOSIN HCL 0.4 MG CAPSULE PO (20:22)
[2022-07-08] MEDS: ATORVASTATIN 10 MG TABLET PO (20:22)
[2022-07-08] MEDS: MELATONIN 5 MG TABLET PO (20:22)
[2022-07-08] MEDS: MIRTAZAPINE 15 MG TABLET 45 MG PO (20:22)
[2022-07-08 23:00] VITALS: TEMP 36.6; O2SAT 95
[2022-07-09] MEDS: OXYCODONE 5 MG TABLET PO (05:24)
--- NOTE | 2022-07-09 05:53 | PC.NURSE ---
WEEKLY CHARTING- Week #1 Pain & ADL's: Vital signs reviewed with no concerns. Temporary Care Plan reviewed. Resident needs extensive one assist with dressing, grooming, and bathing. Encourage to participate as able. Resident is independent with eating and performing oral care task - staff assist as needed. On regular diet at this time. No chewing or swallowing difficulties noted. Pain: Resident is able to verbalize pain. Receives scheduled Acetaminophen 1000mg TID.
[2022-07-09] MEDS: ACETAMINOPHEN 500 MG TABLET 1000 MG PO ×3 (09:01→20:05)
[2022-07-09] MEDS: AMLODIPINE 10 MG TABLET PO (09:01)
[2022-07-09] MEDS: DULOXETINE 30 MG CAPSULE DR 90 MG PO (09:02)
[2022-07-09] MEDS: OMEPRAZOLE 20 MG CAPSULE DR PO (09:02)
[2022-07-09] MEDS: TROSPIUM CHLORIDE 20 MG TABLET PO ×2 (09:02→15:09)
[2022-07-09] MEDS: SENNOSIDES 1 TAB TABLET 2 TAB PO ×2 (09:02→15:09)
[2022-07-09] MEDS: MEMANTINE HCL 10 MG TABLET PO ×2 (09:02→15:09)
[2022-07-09] MEDS: CANDESARTAN CILEXETIL 32 MG TABLET 16 MG PO (09:02)
[2022-07-09] MEDS: CITALOPRAM HYDROBROMIDE 20 MG TABLET 10 MG PO (09:02)
--- NOTE | 2022-07-09 10:11 | PC.NURSE ---
Week #1: Pain & ADL`s: Resident`s vital signs, and temporary Care Plan reviewed. No changes and nothing added to temporary care plan at this time. Resident needs one assist with dressing, grooming, and bathing. Encourage to participate as able. Resident is independent with eating and performing oral care task - staff assist as needed. On regular diet at this time, and no problem with chewing or swallowing noted. Pain: Resident is able to verbalize pain. Receives scheduled Acetaminophen 1000mg TID. Resident is discharging to another facility closer to her daughter on the 07/10/22.
[2022-07-09 10:38] VITALS: TEMP 36.8; O2SAT 93
--- NOTE | 2022-07-09 11:05 | PC.NURSE ---
Order: Ativan 0.5 mg once before discharge by WATER FILTRATION TECHNICIAN, Nena as requested by daughter.
[2022-07-09] MEDS: NICOTINE 14 mg PATCH 1 PATCH TRANSDERMA (11:06)
[2022-07-09 15:00] VITALS: TEMP 36.9; O2SAT 95
[2022-07-09 15:17] VITALS: BP 176/75; PULSE 106; RESP 22; TEMP 36.8
[2022-07-09] MEDS: TAMSULOSIN HCL 0.4 MG CAPSULE PO (20:05)
[2022-07-09] MEDS: MELATONIN 5 MG TABLET PO (20:05)
[2022-07-09] MEDS: ATORVASTATIN 10 MG TABLET PO (20:05)
[2022-07-09] MEDS: MIRTAZAPINE 15 MG TABLET 45 MG PO (20:05)
[2022-07-09 23:00] VITALS: TEMP 36.7; O2SAT 93
[2022-07-10] MEDS: OXYCODONE 5 MG TABLET PO (05:20)
[2022-07-10] MEDS: ACETAMINOPHEN 500 MG TABLET 1000 MG PO (09:12)
[2022-07-10] MEDS: LORazepam 0.5 MG TABLET PO (09:12)
[2022-07-10] MEDS: OMEPRAZOLE 20 MG CAPSULE DR PO (09:13)
[2022-07-10] MEDS: SENNOSIDES 1 TAB TABLET 2 TAB PO (09:13)
[2022-07-10] MEDS: AMLODIPINE 10 MG TABLET PO (09:13)
[2022-07-10] MEDS: MEMANTINE HCL 10 MG TABLET PO (09:13)
[2022-07-10] MEDS: CITALOPRAM HYDROBROMIDE 20 MG TABLET 10 MG PO (09:13)
[2022-07-10] MEDS: TROSPIUM CHLORIDE 20 MG TABLET PO (09:13)
[2022-07-10] MEDS: CANDESARTAN CILEXETIL 32 MG TABLET 16 MG PO (09:13)
[2022-07-10] MEDS: DULOXETINE 30 MG CAPSULE DR 90 MG PO (09:13)
--- NOTE | 2022-07-10 09:56 | PC.NURSE ---
Discharge from facility: Resident was discharged from facility at 10am in wheel chair, accompanied by daughter. All her discharge instructions and medication was given to daughter. Resident was in a pleasant mood and stop to say goodbye to all the staffs.
--- NOTE | 2022-07-10 13:29 | PC.NURSE ---
Recapitulation: Resident 1935. Admitted on 05/01/22. [facility] stay for PT/OT therapy needs. Resident was admitted to [facility] unit on 04/28/22 due to falls at home and resulting alteration in mobility, weakness, SOB and confusion. Resident had a fall at home that caused rib fractures 3-5 in the anterolateral right chest. [employer] coverage. Per [facility] approved 05/01/22-05/12/22. Resident received PT and OT for strengthening and ADL performance. Resident had times of delirium and behaviors during stay. Resistive to cares during stay. ?See charting for details. Alert and orientated to self. Dentures. Allergies reviewed. Resident is 1 limited assist with dressing, hygiene, transfers, ambulation, and mobility. Eats independently after setting up. At times needed encouragement with eating. Proceed to care plan if needed. Resident receiving regular diet. Hypertension noted. ?Resident discharged to [facility] memory care unit to be closer to family. Proceed to care plan as needed.
== END 2022-07-10 10:01 | disposition other institution (70) | DRG 305 ==
PROVIDERS: Family Medicine; Admitting Provider Family Medicine; Family Provider Nurse Practitioner Gerontology; PCP Family Medicine; Visit Provider Nurse Practitioner Gerontology
DX: I10 Essential (primary) hypertension (principal); F02.811 Dementia in other diseases classified elsewhere, unspecified severity, with agitation; F33.9 Major depressive disorder, recurrent, unspecified; Z72.0 Tobacco use; S22.41XD Multiple fractures of ribs, right side, subsequent encounter for fracture with routine healing; K59.00 Constipation, unspecified; N32.81 Overactive bladder; E78.5 Hyperlipidemia, unspecified; M81.0 Age-related osteoporosis without current pathological fracture; G47.00 Insomnia, unspecified; K21.9 Gastro-esophageal reflux disease without esophagitis; F41.9 Anxiety disorder, unspecified
CPT/HCPCS: 87635; 97116; 97162; 97165; 97530; 97535